=== PATIENT | male | born 1960 | race Caucasian/White ===

== ENCOUNTER 2016-07-30 13:36 | Emergency (ER) | payer MEDICAID, OTHER ==
[~2016-07-30] VITALS: Wt 98.0 kg
[~2016-07-30 13:36] MED LIST: ASPI-664 PO; CARV3.12 PO; ESOM40CA PO; FURO-110 PO; LISI10TA2 PO; NIT4 SL; SIMV20TA2 PO
--- NOTE | 2016-07-30 14:46 | EN ---
Date/Time of Note Date/Time of Note DATE: 07/30/16 TIME: 14:42 ER Progress Note This is a 56-year-old male, hypertension, pulmonary hypertension complaining of a rash and itchiness throughout the body for the past 4 days. Patient has been evaluated in RME and was found to have worsening pitting edema and shortness of breath therefore he will be sent to ER 1 for further evaluation and management. JOAQUIN QUINTANILLA PA-C July 30, 2016 14:46
--- NOTE | 2016-07-30 16:57 | ERA ---
ER Documentation Chief Complaint Date/Time DATE: 07/30/16 TIME: 16:56 Chief Complaint GEN RASH TO BILATERAL ARMS AND LEGS FOR THE PAST 4 DAYS. NO SOB NOTED. HPI The patient is a 56-year-old male, presenting to the ER because of bilateral upper extremity, anterior abdomen, bilateral extremity rash for the last 4 days. It is itchy, he denies fever, chills, neck pain, palpitation, diaphoresis , dyspnea, abdominal pain, vomiting with dysuria, diarrhea. He denies any orthopnea, proximal nocturnal dyspnea. He complains of chronic lower extremity edema, denies any calf pain. He smokes half a pack a day, denies drinking Past medical history: Dyslipidemia, hypertension, cardiomyopathy, pulmonary hypertension Past medical history: CABG ROS All systems reviewed and are negative except as per history of present illness. Medications Home Meds Active Scripts Triamcinolone Acetonide* (Kenalog*) 0.1%-15GM Cr, 1 APPLIC TOP BID for 7 Days, # 1 TUB Prov:ELIEZER HERNANDEZ MD 07/30/16 Famotidine* (Pepcid*) 20 Mg Tablet, 20 MG PO BID for 7 Days, TAB Prov:ELIEZER HERNANDEZ MD 07/30/16 Diphenhydramine Hcl* (Benadryl*) 50 Mg Cap, 50 MG PO Q6H Y for ITCHING/RASH, # 30 CAP Prov:ELIEZER HRENANDEZ MD 07/30/16 Reported Medications Omeprazole* (Omeprazole*) 20 Mg Capsule.dr, 20 MG PO DAILY, #30 CAP 07/30/16 Metoprolol Succinate* (Toprol XL*) 25 Mg Tab.sr.24h, 12.5 MG PO DAILY, #30 TAB 07/30/16 Aspirin* (Aspirin* (EC)) 81 Mg Tablet.dr, 81 MG PO DAILY, TAB 02/14/15 Furosemide* (Lasix*) 20 Mg Tablet, 20 MG PO DAILY, TAB 02/14/15 Lisinopril* (Lisinopril*) 10 Mg Tablet, 10 MG PO DAILY, TAB 02/14/15 Simvastatin (Simvastatin) 20 Mg Tablet, 20 MG PO DAILY 06/27/11 Discontinued Reported Medications Nitroglycerin* (Nitrostat*) 0.4 Mg Tab.subl, 0.4 MG SL Q5MIN Y for CHEST PAIN, BOTTLE 02/14/15 Esomeprazole Mag Trihydrate (Nexium) 40 Mg Capsule.dr, 40 MG PO DAILY, CAP 02/14/15 Carvedilol* (Coreg*) 3.125 Mg Tablet, 3.125 MG PO BID, TAB 02/14/15 Allergies Allergies: Coded Allergies: No Known Allergy (Unverified , 07/30/16) PMhx/Soc History of Surgery: Yes (CABG 2005) Anesthesia Reaction: No Hx Neurological Disorder: No Hx Respiratory Disorders: No Hx Cardiac Disorders: Yes (HTN, CHEST PAIN) Hx Psychiatric Problems: No Hx Miscellaneous Medical Probl: Yes (FORMER DRUG USER METAMPHETAMINE 1 YR AGO) Hx Alcohol Use: No Hx Substance Use: No Hx Tobacco Use: No Physical Exam Vitals Vital Signs Date Time Temp Pulse Resp B/P Pulse Ox O2 Delivery O2 Flow Rate FiO2 07/30/16 13:41 98.8 102 20 129/84 98 Physical Exam Const: No acute distress. Head: Atraumatic. Eyes: Normal Conjunctiva. ENT: Normal External Ears, Nose and Mouth. Neck: Full range of motion. No meningismus. Resp: Clear to auscultation bilaterally. Cardio: Regular rate and rhythm, no murmurs. Abd: Soft, non distended, normal bowel sounds, non tender. Skin: Minimal erythematous, maculopapular rash in upper and lower extremity and anterior abdomen. No vesicle, petechia, pustules Back: No midline or flank tenderness. Ext: Minimal chronic lower extremity edema, no calf tenderness Neur: Awake and alert. No focal deficit Psych: Normal Mood and Affect. Procedures/MDM MEDICAL MAKING DECISION: The patient is a 56-year-old male, presenting with nonspecific dermatitis. The differential diagnoses considered include but are not limited to allergic dermatitis, contact dermatitis, cellulitis, urticaria Departure Diagnosis: Primary Impression: Dermatitis Condition: Stable Patient Instructions: Dermatitis, Non-Specific, Hives Comments He was discharged with Kenalog cream, Benadryl, Pepcid I discussed the findings with the patient. I advised the patient to follow-up with the primary physician in about 1-2 days, sooner if needed and return if any concern. ELIEZER HERNANDEZ MD July 30, 2016 16:57
[2016-07-30] MEDS ORDERED: BEN50 PO (17:24)
[2016-07-30] MEDS ORDERED: FAMO-18 PO (17:24)
[2016-07-30] MEDS ORDERED: KENC1 TOP (17:25)
[2016-07-30] MEDS ORDERED: METO25TA7 PO (17:29)
[2016-07-30] MEDS ORDERED: OMEP20CA16 PO (17:29)
== END 2016-07-30 16:32 | disposition home or self-care (01) ==
LOC: E/R 13:36
DX: L30.9 Dermatitis, unspecified (principal); I10 Essential (primary) hypertension; Z79.82 Long term (current) use of aspirin; Z98.61 Coronary angioplasty status
CPT/HCPCS: 99283

== ENCOUNTER 2016-10-19 12:07 | Inpatient (IN) | payer OTHER ==
[~2016-10-19] VITALS: Ht 182.9 cm; Wt 118.2 kg
[~2016-10-19 12:07] MED LIST changes: +BEN50 PO; -CARV3.12 PO; -ESOM40CA PO; +FAMO-96 PO; +METO25TA7 PO; -NIT4 SL; +OMEP20CA16 PO; +TRIA15CR55 TOP
[2016-10-19] MEDS ORDERED: CEFEPIME 2GM/50 ML (PMX) 50 ML IVPB STA (12:21)
[2016-10-19] MEDS ORDERED: SODIUM CHLORIDE 0.9% 1L BAG IV* STA (12:21)
[2016-10-19] MEDS ORDERED: ACETAMINOPHEN 500 MG TAB PO STA (12:21)
[2016-10-19] MEDS ORDERED: ASPIRIN 325 MG TAB PO STA (12:21)
[2016-10-19] MEDS ORDERED: NITROGLYCERIN (SL) 0.4 MG TAB SL PRN (12:30)
[2016-10-19] MEDS ORDERED: VANCOMYCIN 1 GM (PMX) 250 ML IVPB ONE (12:30)
[2016-10-19] MEDS ORDERED: IBUPROFEN 800 MG TAB PO ONE (12:30)
--- NOTE | 2016-10-19 12:39 | ERA ---
ER Documentation Chief Complaint Date/Time DATE: 10/19/16 TIME: 12:33 Chief Complaint HPI This is a 56-year-old male with a known history of coronary artery bypass graft in 2016 performed at [facility] who presents to the emergency department complaining of a sudden onset of chest pain that occurred roughly 1 hour prior to arrival. The patient stated he felt fine when he awoke this morning but several hours after awakening he developed the chest pressure which he stated was localized to the mid substernal region radiating to the left arm but no radiation to the back neck or jaw. Indicates he took a nitroglycerin an hour and a half ago with no relief of his symptoms. He drove himself to the hospital and while en route to the hospital he stated he felt a tactile fever with shaking and chills and developed a bilateral pulsating headache. He states this is not the worst headache of his life and he has had a similar headache roughly 1 year ago. He denies any neck pain. He denies any recent hospitalizations and is not currently on antibiotics. He denies a productive or nonproductive cough. He denies any frequency urgency or dysuria. He denies any abdominal pain. He denies any recent travel. The patient did indicate he is also homeless and has been working in the heat and has been sleeping in his car with no air conditioning. The patient also indicates that he had utilized crystal meth and heroin several hours prior to arrival. ROS All systems reviewed and are negative except as per history of present illness. Medications Home Meds Active Scripts Triamcinolone Acetonide* (Kenalog*) 0.1%-15GM Cr, 1 APPLIC TOP BID for 7 Days, # 1 TUB Prov:ELIEZER HERNANDEZ MD 07/30/16 Diphenhydramine Hcl* (Benadryl*) 50 Mg Cap, 50 MG PO Q6H Y for ITCHING/RASH, # 30 CAP Prov:ELIEZER HERNANDEZ MD 07/30/16 Reported Medications Omeprazole* (Omeprazole*) 20 Mg Capsule., 20 MG PO DAILY, #30 CAP 07/30/16 Metoprolol Succinate* (Toprol XL*) 25 Mg Tab.sr.24h, 12.5 MG PO DAILY, #30 TAB 07/30/16 Aspirin* (Aspirin* (EC)) 81 Mg Tablet., 81 MG PO DAILY, TAB 02/14/15 Furosemide* (Lasix*) 20 Mg Tablet, 20 MG PO DAILY, TAB 02/14/15 Lisinopril* (Lisinopril*) 10 Mg Tablet, 10 MG PO DAILY, TAB 02/14/15 Simvastatin (Simvastatin) 20 Mg Tablet, 20 MG PO DAILY 06/27/11 Discontinued Scripts Famotidine* (Pepcid*) 20 Mg Tablet, 20 MG PO BID for 7 Days, TAB Prov:ELIEZER HERNANDEZ MD 07/30/16 Allergies Allergies: Coded Allergies: No Known Allergy (Unverified , 07/30/16) PMhx/Soc History of Surgery: Yes (CABG 2005) Anesthesia Reaction: No Hx Neurological Disorder: No Hx Respiratory Disorders: No Hx Cardiac Disorders: Yes (HTN, CHEST PAIN) Hx Psychiatric Problems: No Hx Miscellaneous Medical Probl: Yes (FORMER DRUG USER METAMPHETAMINE 1 YR AGO) Hx Alcohol Use: No Hx Substance Use: No Hx Tobacco Use: No Physical Exam Vitals Vital Signs Date Time Temp Pulse Resp B/P Pulse Ox O2 Delivery O2 Flow Rate FiO2 10/19/16 17:06 99.0 104 18 101/64 97 Room Air 10/19/16 14:24 99.7 10/19/16 13:41 102.6 10/19/16 13:20 131 25 132/78 95 Room Air 10/19/16 12:10 102.5 144 30 149/82 98 Physical Exam Constitutional:Well-developed. Well-nourished. HEENT:Normocephalic. Atraumatic.Pupils were equal round reactive to light. Dry mucous membranes.No tonsillar exudates. Funduscopy exam shows sharp optic disks and venous pulsations are present Neck: No nuchal rigidity. No lymphadenopathy. No posterior cervical spine tenderness or step-offs. Respiratory: Not using accessory muscles of respiration.Lungs were clear to auscultation bilaterally. No rhonchi. No rales. No wheezing. Cardiovascular: Regular rate regular rhythm.No murmurs. No rubs were appreciated.S1, S2 normal. Distal pulses are palpable 2+ bilaterally. GI: Abdomen was soft. Nontender. Non Distended. No pulsatile abdominal masses or bruits. No rebound. No guarding. Bowel sounds were present and normal. Muscle skeletal: Full range of motion of both the upper and lower extremities bilaterally.Normal muscle tone.No assymetrical calf tenderness or swelling. Skin: Skin warm to the touch. No petechia, no purpura. No lesions on the palms or the soles of the feet. No maculopapular rash. NEURO: Patient was alert, awake, orientated x3.No facial droop. Gait observed and normal with no ataxia.Speech had regular rate and rhythm. No focal neurological deficits. Result Diagram: 10/19/16 1240 10/19/16 1240 Results 24 hrs Laboratory Tests Test 10/19/16 12:40 10/19/16 12:50 10/19/16 14:55 White Blood Count 15.410^3/ul Red Blood Count 4.6910^6/ul Hemoglobin 13.8g/dl Hematocrit 39.8% Mean Corpuscular Volume 84.9fl Mean Corpuscular Hemoglobin 29.4pg Mean Corpuscular Hemoglobin Concent 34.7g/dl Red Cell Distribution Width 13.4% Platelet Count 83681^3/UL Mean Platelet Volume 12.0fl Neutrophils % 94.1% Lymphocytes % 2.1% Monocytes % 2.0% Eosinophils % 0.3% Basophils % 0.3% Nucleated Red Blood Cells % 0.0/100WBC Neutrophils # 14.510^3/ul Lymphocytes # 0.310^3/ul Monocytes # 0.310^3/ul Eosinophils # 0.110^3/ul Basophils # 0.010^3/ul Nucleated Red Blood Cells # 0.010^3/ul Prothrombin Time 12.5Sec Prothrombin Time Ratio 1.0 INR International Normalized Ratio 0.93 Activated Partial Thromboplast Time 27.2Sec Sodium Level 137mmol/L Potassium Level 4.1mmol/L Chloride Level 101mmol/L Carbon Dioxide Level 22mmol/L Anion Gap 18 Blood Urea Nitrogen 14mg/dl Creatinine 0.94mg/dl Glucose Level 173mg/dl Lactic Acid Level 1.7mmol/L 2.2mmol/L Calcium Level 9.4mg/dl Total Bilirubin 0.6mg/dl Direct Bilirubin 0.00mg/dl Indirect Bilirubin 0.6mg/dl Aspartate Amino Transf (AST/SGOT) 19IU/L Alanine Aminotransferase (ALT/SGPT) 32IU/L Alkaline Phosphatase 74IU/L Troponin I < 0.012ng/ml Total Protein 7.6g/dl Albumin 4.3g/dl Globulin 3.30g/dl Albumin/Globulin Ratio 1.30 Amylase Level 79U/L Lipase 56U/L Urine Color YELLOW Urine Clarity CLEAR Urine pH 8.0 Urine Specific [place] 1.017 Urine Ketones NEGATIVEmg/dL Urine Nitrite NEGATIVEmg/dL Urine Bilirubin NEGATIVEmg/dL Urine Urobilinogen NEGATIVEmg/dL Urine Leukocyte Esterase NEGATIVELeu/ul Urine Hemoglobin NEGATIVEmg/dL Urine Glucose 2+mg/dL Urine Total Protein NEGATIVEmg/dl Current Medications Medications (Trade) Dose Ordered Sig/Jose Route PRN Reason Start Time Stop Time Status Last Admin Dose Admin Sodium Chloride 2480 ml 2,480 ml BOLUS OVER 2 HOURS STAT IV* 10/19/16 12:21 10/19/16 12:25 DC 10/19/16 12:47 Cefepime HCl 50 ml @ 100 mls/hr ONCE STAT IVPB 10/19/16 12:21 10/19/16 12:50 DC 10/19/16 12:58 Vancomycin HCl (Vancocin) 250 ml @ 125 mls/hr ONCE ONCE IVPB 10/19/16 12:30 10/19/16 14:29 DC Acetaminophen (Tylenol Tab) 1,000 mg ONCE STAT PO 10/19/16 12:21 10/19/16 12:26 DC 10/19/16 12:39 Ibuprofen (Motrin) 800 mg ONCE ONCE PO 10/19/16 12:30 10/19/16 12:31 DC 10/19/16 12:39 Aspirin (Aspirin) 325 mg ONCE STAT PO 10/19/16 12:21 10/19/16 12:26 DC 10/19/16 12:57 Nitroglycerin (Nitroglycerin (Sl Tab) 0.4 Mg) 1 tab Q5M UP TO 3 DOSES PRN SL CHEST PAIN 10/19/16 12:30 Lidocaine 5 ml 5 ml ONCE ONCE SC 10/19/16 14:30 10/19/16 14:31 DC 10/19/16 16:00 Gentamicin Sulfate (Gentamicin) 100 ml @ 200 mls/hr ONCE ONCE IVPB 10/19/16 16:30 10/19/16 16:59 DC 10/19/16 17:06 Ondansetron HCl (Zofran Inj) 4 mg ER BRIDGE PRN IV NAUSEA AND/OR VOMITING 10/19/16 16:30 10/20/16 16:29 Acetaminophen (Tylenol Tab) 650 mg ER BRIDGE PRN PO MILD PAIN/FEVER 10/19/16 16:30 10/20/16 16:29 IV Flush (NS 10 ml) 10 ml PRN PRN IV FLUSH LINE 10/19/16 17:00 Procedures/MDM The patient presented to the emergency department with chest pain. My clinical evaluation and workup was to distinguish minor causes of chest pain from acute life threatening conditions such as myocardial infarction, pulmonary embolism, aortic dissection, esophageal rupture, cardiac tamponade. The patient was placed on a monitoring engineer and continuous pulse oximetry. The patient is a difficult stick and peripheral IV access is been attempted by nursing staff. The patient was febrile and received acetaminophen and Motrin. He was also given aspirin and nitroglycerin. 12 Lead EKG tracing ordered and reviewed by myself showed: Sinus tachycardia 144 bpm and no arrhythmia. LA interval normal. QRS duration normal. No ST segment elevation. Left axis deviation No ST segment depression. No changes consistent with acute ischemia. The patient also presented to the emergency department with an acute single headache that presented within hours of onset my differential diagnosis included but was not limited to meningitis, SAH, intracerebral hemorrhage, hypertensive encephalopathy, cranial artery dissection, cerebral venous sinus thrombosis, traumatic, acute sinusitis. The patient has no ocular symptoms to suggest temporal neuritis, acute narrow-angle glaucoma or pituitary apoplexy. The patient did not appear to have a toxic or metabolic etiology such as fever, hypoglycemia, high-altitude disease or carbon monoxide poisoning. This was not the patients worse headache of their life. The patient had a complete neurologic and fundoscopic exam performed by myself that was normal with no focal neurological deficits or retinal hemorrhage. The patient stated this headache was not severe or distinct from other headaches and the history with the physical exam findings did not likely suggest SAH. Therefore, I did not feel it was clinically necessary to perform a lumbar puncture and CSF analysis. The patient's temperature resolved with antipyretics. The patient's lactic acid initially was not elevated. Repeat lactic acid increased to 2.2. He was treated for sepsis given broad-spectrum antibiotics. I did feel the patient's lactic acid had increased given that the patient had very poor peripheral IV access and required a PICC line so there was a delay in the patient's IV fluids as his ultrasound-guided peripheral line had infiltrated in the left upper extremity. His compartments of the bilateral upper extremities were soft. The patient adamantly refused a central line to be placed by myself and therefore the PICC line nurse kindly agreed to place IV access. Patient's infectious symptoms have not stabilized and the patient is at risk of rapid decompensation. The patient will be admitted for careful hydration, antibiotic therapy, and infectious source control. Severe Sepsis Assessment: Infectious Source: Unknown End organ damage indicated by: Lactate > 2.0 mmol/L Severe Sepsis Managment: Blood Cultures X 2 before broad spectrum antibiotics initiated within 3 hours of recognition. 30 ml/kg NS bolus Completed Initial Lactate: normal Repeat Lactate 2.2 Chest radiograph performed by myself showed no infiltrates pneumothorax or pleural effusions. EKG showed no arrhythmia. The patient had no risk factors for rheumatic fever, atrial my myxoma, acute pericarditis. The patient's troponin was normal. However the patient will be admitted for serial 12-lead EKG tracings and cardiac set of enzymes. I could not rule out the possibility of endocarditis or septicemia. The patient was started with broad-spectrum antibiotics which included vancomycin and Zosyn and cultures are currently pending as the views were obtained prior to the antibiotics being given. The patient's antibiotic spectrum will be broadened with gentamicin as again I cannot rule out the possibility of endocarditis. The patient will be admitted to the hospitalist Dr. Rajan Departure Diagnosis: Primary Impression: Chest pain Qualified Code: R07.9 - Chest pain, unspecified type Additional Impression: Sepsis Qualified Code: A41.9 - Sepsis, due to unspecified organism Condition: Serious RHETTNASREEN TAVAREZA Oct 19, 2016 12:39
[2016-10-19 13:04] LABS: ABNORMAL IP MESSAGE 1; BASOPHILS % 0.3 % (0.0-2.0); EOSINOPHILS # 0.1 10^3/ul (0.0-0.5); EOSINOPHILS % 0.3 % (0.0-7.0); HEMATOCRIT 39.8 % (42.0-52.0); HEMOGLOBIN 13.8 g/dl (14.0-18.0); LYMPHOCYTES # 0.3 10^3/ul (0.8-2.9); LYMPHOCYTES % 2.1 % (15.0-51.0); MEAN CORPUSCULAR HEMOGLOBIN 29.4 pg (29.0-33.0); MEAN CORPUSCULAR HGB CONC 34.7 g/dl (32.0-37.0); MEAN CORPUSCULAR VOLUME 84.9 fl (82.0-101.0); MONOCYTE # 0.3 10^3/ul (0.3-0.9); NEUTROPHIL # 14.5 10^3/ul (1.6-7.5); NEUTROPHILS % 94.1 % (39.0-77.0); PLATELET COUNT 147 10^3/UL (140-415); POSITIVE DIFF @See below; RED BLOOD COUNT 4.69 10^6/ul (4.70-6.10); RED CELL DISTRIBUTION WIDTH 13.4 % (11.5-14.5); WHITE BLOOD COUNT 15.4 10^3/ul (4.8-10.8)
[2016-10-19 13:09] VITALS: Ht 182.9 cm; Wt 118.2 kg
[2016-10-19 13:12] LABS: ADD UMIC NO; UR ASCORBIC ACID NEGATIVE (NEGATIVE); UR BILIRUBIN (Dip) NEGATIVE (NEGATIVE); UR BLOOD (Dip) NEGATIVE (NEGATIVE); UR CLARITY CLEAR (CLEAR); UR COLOR YELLOW (YELLOW); UR GLUCOSE (Dip) 2+ mg/dL (NEGATIVE); UR KETONES (Dip) NEGATIVE (NEGATIVE); UR LEUKOCYTE ESTERASE (Dip) NEGATIVE Leu/ul (NEGATIVE); UR NITRITE (Dip) NEGATIVE (NEGATIVE); UR SPECIFIC GRAVITY (Dip) 1.017 (1.003-1.030); UR TOTAL PROTEIN (Dip) NEGATIVE (NEGATIVE); UR UROBILINOGEN (Dip) NEGATIVE (NEGATIVE)
[2016-10-19 13:18] LABS: INR 0.93; PROTIME 12.5 Sec (12.2-14.2)
[2016-10-19 13:19] LABS: PARTIAL THROMBOPLASTIN TIME 27.2 Sec (25.0-35.0)
[2016-10-19 13:23] LABS: ALANINE AMINOTRANSFERASE 32 IU/L (13-69); ALBUMIN 4.3 g/dl (3.3-4.9); ALKALINE PHOSPHATASE 74 IU/L (42-121); AMYLASE 79 U/L (11-123); ANION GAP 18 (8-16); ASPARTATE AMINO TRANSFERASE 19 IU/L (15-46); BILIRUBIN,INDIRECT 0.6 mg/dl (0-1.1); BILIRUBIN,TOTAL 0.6 mg/dl (0.2-1.3); BLOOD UREA NITROGEN 14 mg/dl (7-20); CALCIUM 9.4 mg/dl (8.4-10.2); CARBON DIOXIDE 22 mmol/L (21-31); CHLORIDE 101 mmol/L (97-110); CREATININE 0.94 mg/dl (0.61-1.24); GLUCOSE 173 mg/dl (70-220); POTASSIUM 4.1 mmol/L (3.5-5.1); SODIUM 137 mmol/L (135-144); TOTAL PROTEIN 7.6 g/dl (6.1-8.1)
--- NOTE | 2016-10-19 13:24 | RADRPT ---
PROCEDURE: CT Brain without contrast. CLINICAL INDICATION: Headache. TECHNIQUE: A CT of the brain without contrast was performed utilizing axial sections from the skul l base through the vertex. The patient was scanned without intravenous contrast enhancement. Sagitta l and coronal reformatted images were obtained using the data from the axial images. Total exam DLP is 720.23 mGy-cm. CTDIvol is 43.77 mGy. One or more of the following dose reduction techniques we re used: Automated exposure control, adjustment of the mA and/or kV according to patient size, use o f iterative reconstruction technique. COMPARISON: None available FINDINGS: There is normal tay-white matter differentiation. The ventricles and cisterns are normal. There is no intracranial hemorrhage or space-occupying lesion. There is no skull fracture or lytic lesion. IMPRESSION: 1. Normal noncontrast CT scan of the brain. 2. No intracranial hemorrhage. RPTAT: QQ .Srikanth Owen MD, MD Date Time Electronically viewed and signed by .Srikanth Owen MD, on 10/19/2016 13:24 .R/
--- NOTE | 2016-10-19 13:25 | RADRPT ---
PROCEDURE: XR Chest. CLINICAL INDICATION: Cough. Sepsis. TECHNIQUE: Single frontal view. COMPARISON: 03/14/2015. FINDINGS: The lungs are clear. The heart is enlarged. There are sternal wires. There is no pleural effusion. There is no pneumothorax. IMPRESSION: 1. Mild cardiomegaly. 2. Previous median sternotomy. 3. Clear lungs. 4. No change from 03/14/2015. RPTAT: QQ .Srikanth Owen MD, MD Date Time Electronically viewed and signed by .Srikanth Owen MD, MD on 10/19/2016 13:25 .R/
[2016-10-19 13:33] LABS: TROPONIN-I < 0.012 ng/ml (0.00-0.12)
[2016-10-19] MEDS ORDERED: LIDOCAINE 1% (MPF) 5 ML VIAL SC ONE (14:30)
--- NOTE | 2016-10-19 16:24 | RADRPT ---
PROCEDURE: XR Chest. CLINICAL INDICATION: PICC line placement TECHNIQUE: PA and lateral chest x-ray. COMPARISON: 10/19/2016 at 01:01 p.m. FINDINGS: Right-sided PICC line terminates in the right internal jugular vein. The lungs are clear. No pleural effusion identified. No evidence of pneumothorax. The heart size is large. Median sternotomy wires are unchanged. The cardiomediastinal silhouette i s unremarkable. The soft tissues are within normal limits. Bony structures are unremarkable. IMPRESSION: 1. Interval placement right-sided PICC line which terminates in the right neck, likely in the inter nal jugular vein. Repositioning is suggested. 2. Cardiomegaly. RPTAT: QQ .Justus Gtz MD, MD Date Time Electronically viewed and signed by .Justus Gtz MD, on 10/19/2016 16:24 .M/
--- NOTE | 2016-10-19 16:26 | RADRPT ---
PROCEDURE: Ultrasound guided PICC line placement CLINICAL INDICATION: PICC line placement COMPARISON: None available TECHNIQUE: Real-time high-resolution ultrasound imaging in transverse and longitudinal planes was p erformed in the upper arm to evaluate venous size and location for needle insertion during PICC line placement. Barnworker Groom images were submitted for interpretation. FINDINGS: Focused ultrasound imaging of the upper arm was performed for placement of PICC line. No radiologist was present for the procedure. No diagnosis was made from the images. IMPRESSION: 1. Focused ultrasound for placement of PICC line. RPTAT: QQ .Justus Gtz MD, Date Time Electronically viewed and signed by .Justus Gtz MD, on 10/19/2016 16:25 .M/
--- NOTE | 2016-10-19 16:28 | RADRPT ---
PROCEDURE: XR Chest. CLINICAL INDICATION: Line placement TECHNIQUE: PA and lateral chest x-ray. COMPARISON: 10/19/2016 at 1607 hours FINDINGS: Right-sided PICC line terminates in superior vena cava 4 cm above the right atrium. The lungs are clear. No pleural effusion identified. No evidence of pneumothorax. The heart size is large. Mediasternotomy wires are unchanged from previous exam. The cardiomediast inal silhouette is otherwise unremarkable. The soft tissues are within normal limits. Bony structures are unremarkable. IMPRESSION: 1. Interval repositioning right-sided PICC line which terminates in the superior vena cava 4 cm abo ve the right atrium. 2. Cardiomegaly. RPTAT: QQ .Justus Gtz MD, MD Date Time Electronically viewed and signed by .Justus Gtz MD, on 10/19/2016 16:27 .M/
[2016-10-19] MEDS ORDERED: ONDANSETRON 4 MG INJ IV PRN (16:30)
[2016-10-19] MEDS ORDERED: ACETAMINOPHEN 325 MG TAB PO PRN (16:30)
[2016-10-19] MEDS ORDERED: GENTAMICIN 120 MG/NS (PMX) 100 ML IVPB ONE (16:30)
[2016-10-19 17:06] VITALS: TEMP 99
[2016-10-19 18:15] VITALS: BP 100/55; PULSE 100; RESP 19
--- NOTE | 2016-10-19 18:21 | HP ---
Date/Time of Note Date/Time of Note DATE: 10/19/16 TIME: 18:04 Assessment/Plan VTE Prophylaxis VTE Prophylaxis Intervention: LMWH Lines/Catheters IV [facility]ter [facility] (from [facility]): PICC Line Central line still needed: No Assessment/Plan Chief Complaint/Hosp Course 56 yo male with h/o systolic CHF with EF 30%, reported prior history of unclear cardiac surgery to repair a "hole in his heart", DMII, obesity, PSA who presents with fever/hyperthermia and headache following ingestion of methamphetamines. Clinical picture highly suggestive of a toxidrome. Infectious etiology should also be considered, notably endocarditis. Meningitis not suspected given his exam without meningismus/photophobia and headache resolved. - Monitor for improvement as suspected toxidrome wears off - Will cover with abx for now and await BC results Chronic systolic CHF: - TTE - Will need to resume his CHF medication regiment ot which he has been nonadherent (BB, ALLIE, arslan) DMII: - Basal bolus insulin Discharge pending improvement in medical condition Problems: HPI/ROS Admit Date/Time Admit Date/Time Hx of Present Illness 56 yo male wtih h/o systolic CHF EF 30%, reported h/o "hole in my heart" repair in 2005, PSA (opiates, methamphatamines), DMII who presents with fever and headache. Patient was in [facility] until yesterday. Reports doing methamphetamines and opiates via inhalation all day yesterday. Developed headache and hyperthermia overnight preventing him from sleeping. He lives in his car. Given symptoms he came to ED here. Found to be markedly febrile. Says headache has abated now. Denies doing any IV drugs. Denies any preceding symptoms prior to yesterday. Denies any other toxic ingestions. PMH/Family/Social Past Medical History Medical History: congestive heart failure Past Surgical History "Hole in heart repair" Social History Alcohol Use: occasionally Smoking Status: Current every day smoker Drug Use: heroin, other (amphetamines) Exam/Review of Systems Vital Signs Vitals Vital Signs Date Time Temp Pulse Resp B/P Pulse Ox O2 Delivery O2 Flow Rate FiO2 10/19/16 17:06 99.0 104 18 101/64 97 Room Air Exam Exam Comfortable appearing, somnulent Marked plethoric appearance to face and chest, blanchable. Very warm to touch, nontender Heart rhythm is regular, there is a 2/6 systolic murmur, JVD is elevated Sternotomy scar Lungs are clear Abdomen is obese, soft, nt Ext warm, L leg with some edema > R Labs notable for mild leukocytosis, mild lactate elevation Head CT negative CXR with mild cardiomegaly Labs Result Diagram: 10/19/16 1240 10/19/16 1240 Medications Medications Current Medications IV Flush (NS 10 ml) 10 ml PRN PRN IV FLUSH LINE; Start 10/19/16 at 17:00 CHRISTINE DIEGO MD Oct 19, 2016 18:14
[2016-10-19 18:32] VITALS: PULSE 105
[2016-10-19 18:53] LABS: OPIATES Positive (NEGATIVE)
[2016-10-19 18:56] LABS: BARBITURATES Negative (NEGATIVE); BENZODIAZEPINES Negative (NEGATIVE); CANNABINOIDS Negative (NEGATIVE); COCAINE Negative (NEGATIVE)
[2016-10-19 19:46] VITALS: BP 117/56; RESP 18
[2016-10-19 20:13] VITALS: PULSE 96
[2016-10-19] MEDS: PIPER-TAZO 3.375 GM IV (PMX) 100 ML IVPB SCH (21:13)
[2016-10-19 23:57] VITALS: BP 121/57; RESP 18
[2016-10-20 00:17] VITALS: PULSE 83
[2016-10-20 03:47] VITALS: BP 121/61; RESP 18
[2016-10-20 04:09] VITALS: PULSE 92
[2016-10-20] MEDS: PIPER-TAZO 3.375 GM IV (PMX) 100 ML IVPB SCH (06:08)
[2016-10-20 08:00] VITALS: BP 99/59; PULSE 95; RESP 19
[2016-10-20 08:27] VITALS: PULSE 101
[2016-10-20 08:55] LABS: ABNORMAL IP MESSAGE 1; BASOPHILS % 0.3 % (0.0-2.0); EOSINOPHILS # 0.1 10^3/ul (0.0-0.5); EOSINOPHILS % 0.4 % (0.0-7.0); HEMOGLOBIN 12.9 g/dl (14.0-18.0); LYMPHOCYTES # 0.4 10^3/ul (0.8-2.9); MEAN CORPUSCULAR HEMOGLOBIN 29.3 pg (29.0-33.0); MEAN CORPUSCULAR HGB CONC 33.9 g/dl (32.0-37.0); MEAN CORPUSCULAR VOLUME 86.4 fl (82.0-101.0); MEAN PLATELET VOLUME 12.1 fl (7.4-10.4); MONOCYTE # 0.3 10^3/ul (0.3-0.9); MONOCYTES % 2.1 % (0.0-11.0); NEUTROPHIL # 12.6 10^3/ul (1.6-7.5); NEUTROPHILS % 93.2 % (39.0-77.0); PLATELET COUNT 116 10^3/UL (140-415); POSITIVE DIFF @See below; RED CELL DISTRIBUTION WIDTH 13.6 % (11.5-14.5); WHITE BLOOD COUNT 13.5 10^3/ul (4.8-10.8)
[2016-10-20] MEDS ORDERED: ENOXAPARIN 40 MG/0.4 ML SYG SC SCH (09:00)
[2016-10-20 09:14] LABS: ALBUMIN 3.2 g/dl (3.3-4.9); ALBUMIN/GLOBULIN RATIO 1.06; BILIRUBIN,INDIRECT 0.3 mg/dl (0-1.1); BILIRUBIN,TOTAL 0.3 mg/dl (0.2-1.3); CREATININE 0.86 mg/dl (0.61-1.24); POTASSIUM 3.9 mmol/L (3.5-5.1); TOTAL PROTEIN 6.2 g/dl (6.1-8.1)
[2016-10-20 12:26] VITALS: BP 94/63; PULSE 109; RESP 18
--- NOTE | 2016-10-20 13:42 | PDOCDIS ---
Discharge Instructions DIAGNOSIS Discharge Diagnosis Fever CONDITION Patient Condition: Fair HOME CARE INSTRUCTIONS: Diet Instructions: Reduced Sodium FOLLOW UP/APPOINTMENTS Follow-up Plan Return to the hospital immediately if you feel fever, shortness of breath, chest pain, or other concerning symptoms. It is quite possible you have an untreated, life-threatening infection that we have not yet diagnosed prior to your request to be discharged. You also need to see a software technical lead and take medications for your heart condition. It is extremely important that you refrain from drug use. CHRISTINE DIEGO MD Oct 20, 2016 13:42
--- NOTE | 2016-10-20 13:46 | DS ---
Date/Time of Note Date/Time of Note DATE: 10/20/16 TIME: 13:43 Discharge Summary Admission/Discharge Info Admit Date/Time Oct 19, 2016 at 16:06 Discharge Date/Time Oct 20, 2016 at 13:18 Discharge Diagnosis Fever Patient Condition: Fair Hx of Present Illness 56 yo male wt h/o systolic CHF EF 30%, reported h/o "hole in my heart" repair in 2005, PSA (opiates, methamphatamines), DMII who presents with fever and headache. Patient was in [facility] until yesterday. Reports doing methamphetamines and opiates via inhalation all day yesterday. Developed headache and hyperthermia overnight preventing him from sleeping. He lives in his car. Given symptoms he came to ED here. Found to be markedly febrile. Says headache has abated now. Denies doing any IV drugs. Denies any preceding symptoms prior to yesterday. Denies any other toxic ingestions. Hospital Course 56 yo male with h/o systolic CHF with EF 30%, reported prior history of unclear cardiac surgery to repair a "hole in his heart", DMII, obesity, PSA who presents with fever/hyperthermia and headache following ingestion of methamphetamines. Clinical picture highly suggestive of a toxidrome. Infectious etiology should also be considered, notably endocarditis. Meningitis not suspected given his exam without meningismus/photophobia and headache resolved. On the day following admission, the patient's symptoms had resolved. He was no longer febrile, had no chest pain, no shortenss of breath or headache. He requested to be discharged from the hospital. I discussed with the patient that I recommended he remain inpatient to continue to receive antibiotics until we can ensure his presentation was not because of infection, particularly endocarditis. Despite my explanation, the patient still requested to be discharged. He clearly understands the risk of doing so, including disability and , and accepts these risks. The patient was encouraged to resume care wt his child adolescent psychiatrist and to return to the hosptial immediately if he develops any fevers or other concernign symptoms. Home Meds Active Scripts Triamcinolone Acetonide* (Kenalog*) 0.1%-15GM Cr, 1 APPLIC TOP BID for 7 Days, # 1 TUB Prov:ELIEZER HERNANDEZ MD 07/30/16 Diphenhydramine Hcl* (Benadryl*) 50 Mg Cap, 50 MG PO Q6H Y for ITCHING/RASH, # 30 CAP Prov:ELIEZER HERNANDEZ MD 07/30/16 Reported Medications Omeprazole* (Omeprazole*) 20 Mg Capsule.dr, 20 MG PO DAILY, #30 CAP 07/30/16 Metoprolol Succinate* (Toprol XL*) 25 Mg Tab.sr.24h, 12.5 MG PO DAILY, #30 TAB 07/30/16 Aspirin* (Aspirin* (EC)) 81 Mg Tablet.dr, 81 MG PO DAILY, TAB 02/14/15 Furosemide* (Lasix*) 20 Mg Tablet, 20 MG PO DAILY, TAB 02/14/15 Lisinopril* (Lisinopril*) 10 Mg Tablet, 10 MG PO DAILY, TAB 02/14/15 Simvastatin (Simvastatin) 20 Mg Tablet, 20 MG PO DAILY 06/27/11 Discontinued Scripts Famotidine* (Pepcid*) 20 Mg Tablet, 20 MG PO BID for 7 Days, TAB Prov:ELIEZER HERNANDEZ MD 07/30/16 Primary Care Provider Kt [facility] Time spent on discharge: > 30 minutes Pending Labs Laboratory Tests Test 10/19/16 14:55 10/19/16 17:40 10/19/16 20:22 10/20/16 02:36 Lactic Acid Level 2.2mmol/L (0.5-2.0) 1.3mmol/L (0.5-2.0) Bedside Glucose 177mg/dL (70-220) 137mg/dL (70-220) Test 10/20/16 07:58 White Blood Count 13.510^3/ul (4.8-10.8) Red Blood Count 4.4010^6/ul (4.70-6.10) Hemoglobin 12.9g/dl (14.0-18.0) Hematocrit 38.0% (42.0-52.0) Mean Corpuscular Volume 86.4fl (82.0-101.0) Mean Corpuscular Hemoglobin 29.3pg (29.0-33.0) Mean Corpuscular Hemoglobin Concent 33.9g/dl (32.0-37.0) Red Cell Distribution Width 13.6% (11.5-14.5) Platelet Count 54032^3/UL (140-415) Mean Platelet Volume 12.1fl (7.4-10.4) Neutrophils % 93.2% (39.0-77.0) Lymphocytes % 3.0% (15.0-51.0) Monocytes % 2.1% (0.0-11.0) Eosinophils % 0.4% (0.0-7.0) Basophils % 0.3% (0.0-2.0) Nucleated Red Blood Cells % 0.0/100WBC (0.0-0.0) Neutrophils # 12.610^3/ul (1.6-7.5) Lymphocytes # 0.410^3/ul (0.8-2.9) Monocytes # 0.310^3/ul (0.3-0.9) Eosinophils # 0.110^3/ul (0.0-0.5) Basophils # 0.010^3/ul (0.0-0.1) Nucleated Red Blood Cells # 0.010^3/ul (0.0-0.0) Sodium Level 139mmol/L (135-144) Potassium Level 3.9mmol/L (3.5-5.1) Chloride Level 103mmol/L (97-110) Carbon Dioxide Level 27mmol/L (21-31) Anion Gap 13 (8-16) Blood Urea Nitrogen 17mg/dl (7-20) Creatinine 0.86mg/dl (0.61-1.24) Glucose Level 149mg/dl (70-220) Calcium Level 9.0mg/dl (8.4-10.2) Total Bilirubin 0.3mg/dl (0.2-1.3) Direct Bilirubin 0.00mg/dl (0.00-0.20) Indirect Bilirubin 0.3mg/dl (0-1.1) Aspartate Amino Transf (AST/SGOT) 21IU/L (15-46) Alanine Aminotransferase (ALT/SGPT) 26IU/L (13-69) Alkaline Phosphatase 55IU/L (42-121) Total Protein 6.2g/dl (6.1-8.1) Albumin 3.2g/dl (3.3-4.9) Globulin 3.00g/dl (1.3-3.2) Albumin/Globulin Ratio 1.06 CHRISTINE DIEGO MD Oct 20, 2016 13:46
--- NOTE | 2016-10-20 16:19 | RADRPT ---
Echocardiogram Report Patient Name: ALLISON IRVIN Gender: Male Date: 1960 Study Date: 20-Oct-2016 Collar Fuser: Liane RUST Location: 5552 Ref. Physician: CHRISTINE DIEGO Quality: Adequate Procedures: Transthoracic echocardiogram with complete 2D, M-Mode, and doppler examination. Indications: H/o cardiac surgery (unclear details) , here with FUO. Has murmur. Evaluate for endocarditis. 2D/M Mode Doppler Measurement Value Normal Ranges Measurement Value Normal Ranges LVIDd 2D 6.1 3.5 - 5.6 cm AV Peak Bal 1.4 m/sec LVIDs 2D 4.7 2.1 - 4.1 cm AV Peak PG 7.0 mmHg FS 2D 23.5 % LVOT Peak Bal 1.0 m/sec LVPWd 2D 1.3 0.6 - 1.1 cm LVOT Peak PG 4.0 mmHg IVSd 2D 1.3 0.6 - 1.1 cm MV E Peak Bal 1.1 m/sec IVS/LVPW 2D 1.0 TR Peak Bal 3.7 m/sec AoR Diam 2D 3.4 2.0 - 3.7 cm TR Peak PG 54.0 mmHg LA/Ao 2D 1 0 - 1 RVSP 69.0 mmHg EDV 2D 226.0 cm3 ESV 2D 101.0 cm3 LA Dimen 2D 4.5 2.3 - 4.0 cm Findings Left Ventricle: Mild concentric left ventricular hypertrophy. Mild enlargement of left ventricle cavity. Severe left ventricular systolic dysfunction. Ejection fraction is visually estimated at 20 %. Abnormal Diastolic Function. Right Ventricle: Normal right ventricular systolic function. Not well visualized. Mild enlargement of right ventricle. Left Atrium: There is mild enlargement of left atrium. Right Atrium: There is moderate enlargement of right atrium. Mitral Valve: Mitral valve leaflets appear mildly thickened. Mild mitral annular calcification. Mild mitral valve regurgitation. Aortic Valve: No hemodynamically significant aortic stenosis by doppler. Aortic cusps appear mildly calcified. Trace aortic valve regurgitation. Tricuspid Valve: Estimated peak PA systolic pressure 69 mmHg. Tricuspid valve appears mildly thickened. There is moderate tricuspid regurgitation. Pericardium: Normal pericardium with no significant pericardial effusion. Aorta: Normal aortic root. IVC: Dilated IVC without respiratory collapse consistent with elevated right atrial pressure. Conclusions 1.Mild concentric left ventricular hypertrophy. Mild enlargement of left ventricle cavity. Severe left ventricular systolic dysfunction. Ejection fraction is visually estimated at 20 %. Abnormal Diastolic Function. 2.Normal right ventricular systolic function. Not well visualized. Mild enlargement of right ventricle. 3.There is mild enlargement of left atrium. 4.There is moderate enlargement of right atrium. 5.Mild mitral valve regurgitation. 6.No hemodynamically significant aortic stenosis by doppler. Trace aortic valve regurgitation. 7.Estimated peak PA systolic pressure 69 mmHg. There is moderate tricuspid regurgitation. 8.Normal pericardium with no significant pericardial effusion. Electronically Signed By: Marco Allen 20-Oct-2016 16:19:23 -0700 Patient Name: ALLISON IRVIN Study Date: 20-Oct-2016 [id number]
== END 2016-10-20 13:18 | disposition left against medical advice (07) | DRG 918 ==
LOC: E/R 12:07 → MS4 16:06
PROVIDERS: ADMIT Internal Medicine; ATTEND Internal Medicine
DX: T43.621A Poisoning by amphetamines, accidental (unintentional), initial encounter (principal); E87.0 Hyperosmolality and hypernatremia; I50.22 Chronic systolic (congestive) heart failure; I25.10 Atherosclerotic heart disease of native coronary artery without angina pectoris; E11.9 Type 2 diabetes mellitus without complications; R50.9 Fever, unspecified; R51 Headache; Z53.21 Procedure and treatment not carried out due to patient leaving prior to being seen by health care provider; Y92.9 Unspecified place or not applicable; Z59.0 Homelessness; Z95.1 Presence of aortocoronary bypass graft
CPT/HCPCS: 36569; 70450; 71010; 76937; 80053; 80307; 81003; 82150; 82962; 83605; 83690; 84484; 85025; 85610; 85730; 87040; 87086; 93005; 93306; 96372; 96374; 96375; J0692; J1580; J1650; J2543; J7030

== ENCOUNTER 2016-10-31 15:25 | Inpatient (IN) | END 2016-11-01 14:12 | disposition home or self-care (01) | DRG 603 | DX: L03.116 Cellulitis of left lower limb (principal); I10 Essential (primary) hypertension; E11.9 Type 2 diabetes mellitus without complications; I25.10 Atherosclerotic heart disease of native coronary artery without angina pectoris; Z79.82 Long term (current) use of aspirin ==

== ENCOUNTER 2016-12-11 19:47 | Inpatient (IN) | payer OTHER ==
[~2016-12-11] VITALS: Ht 177.8 cm; Wt 102.5 kg
[~2016-12-11 19:47] MED LIST changes: -ASPI-664 PO; -BEN50 PO; +CARV3.1260 PO; +CLIN-73 PO; -FAMO-96 PO; -FURO-110 PO; +LISI-313 PO; -LISI10TA2 PO; -METO25TA7 PO; -OMEP20CA16 PO; -SIMV20TA2 PO; -TRIA15CR55 TOP
--- NOTE | 2016-12-11 23:34 | RADRPT ---
PROCEDURE: Portable chest x-ray. CLINICAL INDICATION: 56 years of age, male. chest pain. TECHNIQUE: Portable AP view of the chest. COMPARISON: October 31, 2016 FINDINGS: Sternal wires from previous cardiac surgery. Superior sternal wires are fractured as before. Diffuse enlargement of cardiopericardial silhouette is similar or increase compared to prior exam. Mediastinal contours are otherwise stable. Mild bibasilar lung opacity likely represents atelectasis, although aspiration or pneumonia could ap pear similar. Pulmonary vessels are mildly prominent that may be due to chronic pulmonary venous con gestion without interstitial edema. Negative for pleural effusion or pneumothorax. 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 IMPRESSION: Enlarged cardiopericardial silhouette is similar or increased since prior exam. Suspected chronic pulmonary venous congestion without interstitial pulmonary edema. Bibasilar lung opacities likely represent atelectasis although aspiration or pneumonia cannot be exc luded. RPTAT: HCTS Physician Hermila Date Time Electronically viewed and signed by Physician Hermila on 12/11/2016 23:34 /
[2016-12-12] VITALS (10 sets, daily range): BP systolic 109–126; BP diastolic 72–79; PULSE 88–101; RESP 15–20; Ht 177.8 cm; Wt 102.5 kg
--- NOTE | 2016-12-12 00:56 | EN ---
Date/Time of Note Date/Time of Note DATE: 12/12/16 TIME: 00:54 ER Progress Note Ultrasound-guided IV insertion note: Patient requiring intravenous line for laboratories and treatment but staff unable to obtain axis. Area was cleaned with alcohol wipe and ultrasound guidance was used with an extended 18-gauge angiocatheter was easily inserted into the basilic vein under ultrasound guidance. Good blood flow. IV flushed well. Laboratories obtained from same site. Patient tolerated well with no complications. Images saved in chart. KANDI LOVE DO Dec 12, 2016 00:56
[2016-12-12 01:34] LABS: BASOPHIL # 0.1 10^3/ul (0.0-0.1); BASOPHILS % 0.8 % (0.0-2.0); EOSINOPHILS # 0.3 10^3/ul (0.0-0.5); EOSINOPHILS % 4.7 % (0.0-7.0); HEMATOCRIT 37.7 % (42.0-52.0); HEMOGLOBIN 12.3 g/dl (14.0-18.0); LYMPHOCYTES # 1.3 10^3/ul (0.8-2.9); LYMPHOCYTES % 20.8 % (15.0-51.0); MEAN CORPUSCULAR HEMOGLOBIN 28.1 pg (29.0-33.0); MEAN CORPUSCULAR HGB CONC 32.6 g/dl (32.0-37.0); MEAN CORPUSCULAR VOLUME 86.3 fl (82.0-101.0); MONOCYTE # 0.5 10^3/ul (0.3-0.9); MONOCYTES % 7.4 % (0.0-11.0); NEUTROPHIL # 4.2 10^3/ul (1.6-7.5); PLATELET COUNT 180 10^3/UL (140-415); RED BLOOD COUNT 4.37 10^6/ul (4.70-6.10); RED CELL DISTRIBUTION WIDTH 14.9 % (11.5-14.5); WHITE BLOOD COUNT 6.4 10^3/ul (4.8-10.8)
[2016-12-12 02:05] LABS: ALANINE AMINOTRANSFERASE 29 IU/L (13-69); ALBUMIN 3.4 g/dl (3.3-4.9); ALBUMIN/GLOBULIN RATIO 0.94; ALKALINE PHOSPHATASE 90 IU/L (42-121); ANION GAP 10 (8-16); ASPARTATE AMINO TRANSFERASE 18 IU/L (15-46); BILIRUBIN,INDIRECT 0.3 mg/dl (0-1.1); BILIRUBIN,TOTAL 0.3 mg/dl (0.2-1.3); BLOOD UREA NITROGEN 17 mg/dl (7-20); CARBON DIOXIDE 27 mmol/L (21-31); CHLORIDE 106 mmol/L (97-110); CREATININE 0.98 mg/dl (0.61-1.24); GLUCOSE 112 mg/dl (70-220); POTASSIUM 4.1 mmol/L (3.5-5.1); SODIUM 139 mmol/L (135-144)
[2016-12-12 02:14] LABS: B-TYPE NATRIURETIC PEPTIDE 3340 PG/ML (0-125); TROPONIN-I < 0.012 ng/ml (0.00-0.12)
[2016-12-12] MEDS ORDERED: FUROSEMIDE 40 MG INJ IV ONE (02:30)
--- NOTE | 2016-12-12 02:31 | ERA ---
ER Documentation Chief Complaint Date/Time DATE: 12/12/16 TIME: 02:27 Chief Complaint sob, cough, cp radiates to left shoulder and left arm numbeness x 2 days HPI This a 56-year-old male who is complaining of dyspnea on exertion and orthopnea progressively getting worse over the past 3 weeks. He also has progressive worsening of his lower extremity edema. He says his lower extremity edema is chronic but is getting worse as well. Patient has had similar symptoms in the past. Denies any chest pain cough fever nausea vomiting diarrhea. ROS All systems reviewed and are negative except as per history of present illness. Medications Home Meds Active Scripts Clindamycin Hcl* (Clindamycin Hcl*) 300 Mg Capsule, 300 MG PO Q6 for 7 Days, # 28 CAP Prov:CHRISTINE DIEGO MD 11/01/16 Lisinopril* (Lisinopril*) 5 Mg Tablet, 5 MG PO DAILY for 90 Days, #90 TAB Prov:CHRISTINE DIEGO MD 11/01/16 Carvedilol* (Carvedilol*) 3.125 Mg Tablet, 3.125 MG PO BID for 90 Days, #90 TAB Prov:CHRISTINE DIEGO MD 11/01/16 Allergies Allergies: Coded Allergies: No Known Allergy (Unverified , 10/31/16) PMhx/Soc Medical and Surgical Hx: pt denies Medical Hx, pt denies Surgical Hx History of Surgery: Yes (open heart sx) Anesthesia Reaction: No Hx Neurological Disorder: No Hx Respiratory Disorders: Yes (pulmonary hypertension) Hx Cardiac Disorders: Yes (CAD, cardiomyopathy, hypertension) Hx Psychiatric Problems: Yes Hx Miscellaneous Medical Probl: Yes (drug abuse, smoker) Hx Alcohol Use: Yes Hx Substance Use: Yes (amphetamines) Hx Tobacco Use: Yes Smoking Status: Current every day smoker FmHx Family History: No coronary disease Physical Exam Vitals Vital Signs Date Time Temp Pulse Resp B/P Pulse Ox O2 Delivery O2 Flow Rate FiO2 12/11/16 19:53 98.6 109 20 128/81 98 Physical Exam Const: Well-developed, well-nourished Head: Atraumatic, normocephalic Eyes: Normal Conjunctiva, PERRLA, EOMI, normal sclera, no nystagmus ENT: Normal External Ears, Nose and Mouth, moist mucus membranes. Neck: Full range of motion. No meningismus, no lymphadenopathy. Resp: No increased work of breathing, basilar cardio: Regular rate and rhythm, no murmurs, S1 S2 present Abd: Soft, non tender x 4, non distended. Normal bowel sounds, no guarding or rebound, no pulsitile abdominal masses or bruits Skin: No petechiae or rashes, no ecchymosis , no maculopapular rash Back: No midline or flank tenderness Ext: No cyanosis, +3 edema, FROM x 4, normal inspection, neurovascularly intact x 4 Neur: Awake and alert, STR 5/5 x 4, sensation intact x 4, no focal findings, cerebellum intact Psych: Normal Mood and Affect Result Diagram: 12/12/165812/12/1658 Results 24 hrs Laboratory Tests Test 12/12/16 00:59 White Blood Count 6.410^3/ul Red Blood Count 4.3710^6/ul Hemoglobin 12.3g/dl Hematocrit 37.7% Mean Corpuscular Volume 86.3fl Mean Corpuscular Hemoglobin 28.1pg Mean Corpuscular Hemoglobin Concent 32.6g/dl Red Cell Distribution Width 14.9% Platelet Count 08041^3/UL Mean Platelet Volume 12.0fl Neutrophils % 66.0% Lymphocytes % 20.8% Monocytes % 7.4% Eosinophils % 4.7% Basophils % 0.8% Nucleated Red Blood Cells % 0.0/100WBC Neutrophils # 4.210^3/ul Lymphocytes # 1.310^3/ul Monocytes # 0.510^3/ul Eosinophils # 0.310^3/ul Basophils # 0.110^3/ul Nucleated Red Blood Cells # 0.010^3/ul Sodium Level 139mmol/L Potassium Level 4.1mmol/L Chloride Level 106mmol/L Carbon Dioxide Level 27mmol/L Anion Gap 10 Blood Urea Nitrogen 17mg/dl Creatinine 0.98mg/dl Glucose Level 112mg/dl Calcium Level 10.0mg/dl Total Bilirubin 0.3mg/dl Direct Bilirubin 0.00mg/dl Indirect Bilirubin 0.3mg/dl Aspartate Amino Transf (AST/SGOT) 18IU/L Alanine Aminotransferase (ALT/SGPT) 29IU/L Alkaline Phosphatase 90IU/L Troponin I < 0.012ng/ml B-Type Natriuretic Peptide 3340PG/ML Total Protein 7.0g/dl Albumin 3.4g/dl Globulin 3.60g/dl Albumin/Globulin Ratio 0.94 Procedures/MDM PROCEDURE: Portable chest x-ray. CLINICAL INDICATION: 56 years of age, male. chest pain. TECHNIQUE: Portable AP view of the chest. COMPARISON: October 31, 2016 FINDINGS: Sternal wires from previous cardiac surgery. Superior sternal wires are fractured as before. Diffuse enlargement of cardiopericardial silhouette is similar or increase compared to prior exam. Mediastinal contours are otherwise stable. Mild bibasilar lung opacity likely represents atelectasis, although aspiration or pneumonia could appear similar. Pulmonary vessels are mildly prominent that may be due to chronic pulmonary venous congestion without interstitial edema. Negative for pleural effusion or pneumothorax. 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 IMPRESSION: Enlarged cardiopericardial silhouette is similar or increased since prior exam. Suspected chronic pulmonary venous congestion without interstitial pulmonary edema. Bibasilar lung opacities likely represent atelectasis although aspiration or pneumonia cannot be excluded. RPTAT: HCTS Physician Hermila Date Time Electronically viewed and signed by Physician Hermila on 12/11/2016 23: 34 CS/ CC: WOJCIECH TRAMMELL DO EKG: Rate/Rhythm: Sinus tachycardia incomplete right bundle branch QRS, ST, QT: NORMAL NC, QRS, QT] Impression: [abNORMAL NORMAL EKG Patient is having a CHF exacerbation we will admit for diuresis will administer dose of Lasix here Departure Diagnosis: Primary Impression: Congestive heart failure Qualified Code: I50.9 - Congestive heart failure, unspecified congestive heart failure chronicity, unspecified congestive heart failure type Condition: Stable WOJCIECH TRAMMELL DO Dec 12, 2016 02:30
[2016-12-12] MEDS ORDERED: ACETAMINOPHEN 325 MG TAB PO PRN ×2 (03:00→03:30)
[2016-12-12] MEDS ORDERED: ONDANSETRON 4 MG INJ IV PRN ×2 (03:00→03:30)
[2016-12-12] MEDS: FAMOTIDINE 20 MG TAB PO SCH ×3 (03:30→22:31)
[2016-12-12] MEDS ORDERED: NACL 0.9% 3 ML SYG IV SCH (03:30)
[2016-12-12 04:43] LABS: BARBITURATES Negative (NEGATIVE); BENZODIAZEPINES Negative (NEGATIVE); CANNABINOIDS Negative (NEGATIVE); COCAINE Negative (NEGATIVE); OPIATES Negative (NEGATIVE)
[2016-12-12] MEDS: FUROSEMIDE 40 MG INJ IV SCH ×2 (05:43→18:15)
--- NOTE | 2016-12-12 10:21 | HP ---
Date/Time of Note Date/Time of Note DATE: 12/12/16 TIME: 10:16 Assessment/Plan VTE Prophylaxis VTE Prophylaxis Intervention: SCD's Lines/Catheters IV Catheter Type (from [facility]): Saline Lock Assessment/Plan Chief Complaint/Hosp Course This is a 56-year-old male being admitted to the telemetry floor for: #1 Acute CHF exacerbation: Patient reports noncompliance of medications patient is homeless as well. BNP is 2000. Echocardiogram in September 2016 showed an EF of 20%. Will put patient on Lasix IV twice daily. Will consult cardiology. Will continue ALLIE and beta-gustavo. Patient does report poor compliance medication as he is homeless. will get social work consult to help with assistance for medications if possible. #2 Hypertension: Continue lisinopril #3 diabetes mellitus: Patient states that he was on medication before but he said that his diabetes went away. Will check a hemoglobin A1c, And urine microalbumin. #4 amphetamine use: urine drug screen was positive for amphetamines. At the current time will provide as needed Ativan for agitation/withdrawal symptoms. Patient will need social work consult for rehab. #5 DVT GI prophylaxis: SCDs, acid gustavo Further treatment strategy will be implemented as per the clinical course Problems: HPI/ROS Admit Date/Time Admit Date/Time Dec 12, 2016 at 02:32 Hx of Present Illness Chief complaint: Shortness of breath and orthopnea This a 56-year-old male who is complaining of dyspnea on exertion and orthopnea progressively getting worse over the past 3 weeks. He also has progressive worsening of his lower extremity edema. He says his lower extremity edema is chronic but is getting worse as well. Patient has had similar symptoms in the past. Denies any chest pain cough fever nausea vomiting diarrhea. Patient denies any recent drug use. However urine drug screen does show positive for amphetamines. Of note patient is homeless and he reports that he is noncompliant with his medications as he is not able to afford them. Allergies: NKDA Medications: See DELFIN DIAZ Const: As per HPI Eyes : No pain discharge or redness or change in visual acuity ENT: No pain, sore throat, congestion, congestion, dysphagia or discharge Respiratory: As per HPI Cardiovascular: No chest pain, palpitation, PND, or edema GI : no change in appetite, abdominal pain, nausea, vomiting, diarrhea, constipation, or change in the color his stool Genitourinary: No dysuria, hematuria, flank pain , discharge or CVA tenderness Musculoskeletal: No joint pain, back pain, neck pain, restricted range of motion in neck or joints Skin: No rash, bruising or hives Neuro: No headache, dizziness, syncope, seizure, focal weakness Endocrine: No polyuria, polydipsia, temperature intolerance Psych: No hallucination, depression, anxiety or suicidal ideation PMH/Family/Social Past Medical History CHF with most recent echocardiogram in September 2016 showing ejection fraction of 20 %, and pulmonary pressures of 69 mmHg, hypertension, diabetes mellitus, history of polysubstance abuse Past Surgical History CABG Past Surgical Hx: other Family History Significant Family History: no pertinent family hx Social History Patient denies any recent drug use however patient's urine drug is positive for amphetamines Smoking Status: Current every day smoker Exam/Review of Systems Vital Signs Vitals Vital Signs Date Time Temp Pulse Resp B/P Pulse Ox O2 Delivery O2 Flow Rate FiO2 12/12/16 08:24 98.2 99 18 126/73 98 Room Air Intake and Output 12/11/16 12/11/16 12/12/16 15:00 23:00 07:00 Output Total 2600 ml Balance -2600 ml Exam Exam General: Patient is lying in bed in no acute distress HEENT: Atraumatic, normocephalic. The pupils are equal, round and reactive. Extraocular motor are intact Neck: Supple with full range of motion. No rigidity or meningismus Chest: Nontender Lungs: Bilateral expiratory wheezing, crackles diffusely Heart: Normal S1-S2, Regular rhythm and rate. Abdomen: Soft , nontender, nondistended , bowel sounds are present. No guarding no rebound tenderness , No masses or organomegaly. No costovertebral temporal angle mass Extremities: Normal to inspection, no edema no cyanosis Neurologic: Normal mental status, speech normal, cranial nerves II through XII are intact, motor and sensory are intact, no focal weakness Additional Comments PROCEDURE: Portable chest x-ray. CLINICAL INDICATION: 56 years of age, male. chest pain. TECHNIQUE: Portable AP view of the chest. COMPARISON: October 31, 2016 FINDINGS: Sternal wires from previous cardiac surgery. Superior sternal wires are fractured as before. Diffuse enlargement of cardiopericardial silhouette is similar or increase compared to prior exam. Mediastinal contours are otherwise stable. Mild bibasilar lung opacity likely represents atelectasis, although aspiration or pneumonia could appear similar. Pulmonary vessels are mildly prominent that may be due to chronic pulmonary venous congestion without interstitial edema. Negative for pleural effusion or pneumothorax. 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 IMPRESSION: Enlarged cardiopericardial silhouette is similar or increased since prior exam. Suspected chronic pulmonary venous congestion without interstitial pulmonary edema. Bibasilar lung opacities likely represent atelectasis although aspiration or pneumonia cannot be excluded. RPTAT: HCTS Physician Hermila Date Time Electronically viewed and signed by Physician Hermila on 12/11/2016 23: 34 CS/ CC: WOJCIECH TRAMMELL DO EKG: Rate/Rhythm: Sinus tachycardia incomplete right bundle branch QRS, ST, QT: NORMAL DE, QRS, QT] As per ED physician documentation Labs Result Diagram: 12/12/165812/12/1658 Medications Medications Current Medications Ondansetron HCl (Zofran Inj) 4 mg Q6H PRN IV NAUSEA AND/OR VOMITING; Start at 03:30 Aspirin (Aspirin) 81 mg DAILY PO ; Start 12/12/16 at 09:00 Acetaminophen (Tylenol Tab) 650 mg Q6H PRN PO PAIN LEVEL 1-3 OR FEVER; Start at 03:30 Famotidine (Pepcid) 20 mg Q12 PO ; Start 12/12/16 at 03:30 Lisinopril (Zestril) 5 mg DAILY PO ; Start 12/12/16 at 09:00 BEVERLY TORRES Dec 12, 2016 10:21
[2016-12-12] MEDS ORDERED: LORAZEPAM 2 MG INJ IV PRN (10:30)
[2016-12-12] MEDS: ASPIRIN 81 MG TAB PO SCH (10:59)
[2016-12-12] MEDS: LISINOPRIL 5 MG TAB PO SCH (11:00)
[2016-12-12] MEDS ORDERED: NITROGLYCERIN (SL) 0.4 MG TAB SL PRN (18:30)
[2016-12-12 22:01] LABS: BASOPHIL # 0.1 10^3/ul (0.0-0.1); EOSINOPHILS # 0.4 10^3/ul (0.0-0.5); EOSINOPHILS % 5.1 % (0.0-7.0); HEMATOCRIT 41.8 % (42.0-52.0); HEMOGLOBIN 13.6 g/dl (14.0-18.0); LYMPHOCYTES # 1.4 10^3/ul (0.8-2.9); LYMPHOCYTES % 17.3 % (15.0-51.0); MEAN CORPUSCULAR HEMOGLOBIN 27.9 pg (29.0-33.0); MEAN CORPUSCULAR HGB CONC 32.5 g/dl (32.0-37.0); MEAN CORPUSCULAR VOLUME 85.8 fl (82.0-101.0); MEAN PLATELET VOLUME 12.1 fl (7.4-10.4); MONOCYTE # 0.6 10^3/ul (0.3-0.9); MONOCYTES % 7.3 % (0.0-11.0); NEUTROPHIL # 5.6 10^3/ul (1.6-7.5); NEUTROPHILS % 68.8 % (39.0-77.0); PLATELET COUNT 229 10^3/UL (140-415); RED BLOOD COUNT 4.87 10^6/ul (4.70-6.10); WHITE BLOOD COUNT 8.1 10^3/ul (4.8-10.8)
[2016-12-12 22:25] LABS: CHOL/HDL RATIO 3.6 RATIO
[2016-12-12 22:26] LABS: ALBUMIN 3.8 g/dl (3.3-4.9); BILIRUBIN,INDIRECT 0.4 mg/dl (0-1.1); BILIRUBIN,TOTAL 0.4 mg/dl (0.2-1.3); CALCIUM 9.5 mg/dl (8.4-10.2); CREATININE 1.04 mg/dl (0.61-1.24); POTASSIUM 3.4 mmol/L (3.5-5.1); TOTAL PROTEIN 7.6 g/dl (6.1-8.1)
[2016-12-12] MEDS ORDERED: POTASSIUM CHLORIDE (SR) 20 MEQ TAB PO STA (22:42)
[2016-12-12] MEDS ORDERED: DIAZEPAM 5 MG/ML SYG IV ONE (23:00)
[2016-12-13] VITALS (10 sets, daily range): BP systolic 85–112; BP diastolic 58–74; PULSE 83–95; RESP 15–19
--- NOTE | 2016-12-13 06:00 | CONS ---
DATE OF ADMISSION: 12/12/2016 DATE OF CONSULTATION: 12/12/2016 REASON FOR CONSULTATION: Congestive heart failure exacerbation, chest pain. REFERRING PHYSICIAN: Dr. Frazier from the hospitalist service. HISTORY OF PRESENT ILLNESS: The patient is a 56-year-old male with history of cardiomyopathy with severely depressed left ventricular ejection fraction, last approximately 20 percent by echo in September,, hypertension, diabetes mellitus, drug abuse with amphetamine, medical noncompliance, ongoing tobacco usage, who presented with complaints of shortness of breath, orthopnea, and states that it woke him with substernal chest pain described as a pressure like sensation, but exacerbated by deep inspiration. Upon arrival in the emergency department, temperature 98.6, blood pressure 120/81, pulse 109, respiratory 27, sating 98 percent. LABORATORY: Noted for white blood cell count 6.4, hemoglobin 12.3, platelet count 180. Sodium 139, potassium 4.1, creatinine 0.9, BUN 17. Troponin negative. BNP of 3340. Tox screen positive for amphetamines. The patient underwent a chest x-ray revealing enlarged similar or increased since prior, suspect chronic pulmonary venous congestion with dialysis, pulmonary edema, bibasilar lung opacities. The patient's electrocardiogram revealed sinus tach, rate 110, with borderline left axis deviation, incomplete right bundle branch block, and lateral T-wave inversions, borderline anterior progression. The patient subsequently had been admitted to the floor, and since admit to the floor, has refused blood draws and therefore has no further troponins. The patient states that he has had some chest pain with deep inspiration. PAST MEDICAL HISTORY: As above in HPI. MEDICATIONS: Currently in the hospital, carvedilol 3.125 mg p.o. b.i.d., aspirin 81 mg daily, Zestril 5 mg daily, Pepcid 20 mg q.12, Tylenol, Zofran p.r.n., Pepcid p.r.n., Ativan p.r.n. ALLERGIES: NO KNOWN DRUG ALLERGIES. SOCIAL HISTORY: Positive tobacco, positive illicit drug abuse, social EtOH. FAMILY HISTORY: No history of cardiac or early CAD. REVIEW OF SYSTEMS: As above in HPI. CONSTITUTIONAL: No fevers or chills. PULMONARY: Shortness of breath. HEART: Heart failure, chest pain. GASTROINTESTINAL: No vomiting. GENITOURINARY: No hematuria. MUSCULOSKELETAL: Degenerative joint disease. PSYCH: No documented psychiatric history. NEUROLOGIC: No documented history of . PHYSICAL EXAMINATION: VITAL SIGNS: Temperature of 98.6, blood pressure 119/78, pulse 98, respirations 18, O2 98 percent on room air. GENERAL: The patient is alert, awake, no acute distress. NECK: JVP approximately 9 cm water. CHEST: Fair air movement throughout. HEART: Regular rate and rhythm. Normal S1, S2. 1 over 6 systolic murmur. Nondisplaced PMI. ABDOMEN: Positive bowel sounds. Soft. EXTREMITIES: No pitting edema. 1 plus pulses bilaterally. LABORATORY: No further labs reviewed. IMAGING STUDIES: As stated above in HPI. No further imaging studies for review at this time. IMPRESSION: 1. Chest pain. Assess for acute coronary syndrome with somewhat atypical symptomatology for cardiac etiology with the patient with a known nonischemic cardiomyopathy by catheterization in 2014. 2. Cardiomyopathy with severely depressed left ejection fraction, 20 percent. 3. Hypertension. 4. Tachycardia borderline consistent with sinus tachycardia. 5. echocardiogram with lateral T-wave inversions. Assess for acute coronary syndrome. 6. Ongoing tobacco usage. 7. Substance abuse. RECOMMENDATIONS: 1. This time would maintain patient on telemetry monitoring to follow rhythm rates closely. 2. Will complete the patient's rule out for myocardial infarction as possible if patient will comply with lab draws. 3. Continue the patient's baseline beta gustavo and ALLIE inhibitor. Will initiate patient on low-dose Lasix to ensure good volume status in the setting of severely elevated blood pressure. 4. Orthopnea. 5. Continue patient's aspirin for prophylaxis of cardiovascular events. 6. Check a fasting lipid panel for general stratification. Initiate lipid medications as necessary. 7. Smoking cessation. 8. Cessation of substance abuse. 9. Will give patient p.r.n. sublingual nitroglycerin for recurrent chest pain. Thank you for allowing me to take part in the care of this patient. I will continue to follow closely with you with recommendations made to the patient's hospital course. Dictated By: Jonas Fenton MD /deysi/cally /Document#: [id number]
[2016-12-13] MEDS: FUROSEMIDE 40 MG INJ IV SCH ×2 (06:19→17:41)
[2016-12-13] MEDS: ASPIRIN 81 MG TAB PO SCH (09:06)
[2016-12-13] MEDS: LISINOPRIL 5 MG TAB PO SCH (09:07)
[2016-12-13] MEDS: FAMOTIDINE 20 MG TAB PO SCH ×2 (09:07→21:25)
[2016-12-13] MEDS ORDERED: DIGOXIN 0.25 MG TAB PO SCH (13:00)
--- NOTE | 2016-12-13 14:52 | PN ---
Date/Time of Note Date/Time of Note DATE: 12/13/16 TIME: 14:48 Assessment/Plan VTE Prophylaxis VTE Prophylaxis Intervention: ambulation Lines/Catheters IV [facility] (from [facility] [place] [facility] Assessment/Plan Chief Complaint/Hosp Course 1. Chest pain. To rule out acute coronary syndrome. Troponin 1 negative. Repeat troponins have been pending since the patient was refusing blood draws. Cardiology following. 2. Cardiomyopathy with ejection fraction of 20%. Continue beta-blockers and ALLIE inhibitors. 3. Essential hypertension. Continue antihypertensives. 4. Substance abuse. Cessation advised. 5. Type 2 diabetes mellitus. Hemoglobin A1c 6.5. Off insulin and oral agents. Random blood sugars well controlled. 6. Fluids, electrolytes, and nutrition. Low-cholesterol diet. 7. DVT prophylaxis. Ambulation. 8. Plan. Continue cardiology recommendations. Talked to the patient regarding the need for repeat blood draws. The patient agreed to have repeat blood draws done. Case discussed with Dr. Florez. Problems: Subjective 24 Hr Interval Summary Free Text/Dictation The patient complains of some chest pain. Refusing blood draws. Exam/Review of Systems Vital Signs Vitals Vital Signs Date Time Temp Pulse Resp B/P Pulse Ox O2 Delivery O2 Flow Rate FiO2 12/13/16 12:01 86 12/13/16 11:22 98.2 17 85/58 96 12/12/16 20:30 Room Air Intake and Output 12/12/16 12/12/16 12/13/16 15:00 23:00 07:00 Intake Total 300 ml Output Total 450 ml Balance -150 ml Exam General: Adequately build 56 year-old male lying in bed in no apparent distress. HEENT: Normocephalic, atraumatic. Eyes: Anicteric sclerae, conjunctivae clear. ENT: Nasal septum midline, oral mucosa moist. Neck supple, no JVD noticed. Respiratory: Bilaterally clear breath sounds. No use of accessory muscles of respiration. No adventitious breath sounds. Cardiovascular: S1, S2 heard. Grade 2/6 systolic ejection murmur. No murmurs or gallops. Abdomen: Soft, nontender, and nondistended. Bowel sounds positive in all 4 quadrants. Genitourinary: Deferred. Extremities: No cyanosis, no clubbing. Trace B/L edema. Peripheral pulses palpable. Neurologic: Cranial nerves II through XII grossly intact. The patient is awake, alert, and oriented. Results Result Diagram: 12/12/16210412/12/162104 Results 24 hrs Laboratory Tests Test 12/12/16 21:05 White Blood Count 8.1 # Red Blood Count 4.87 Hemoglobin 13.6 L Hematocrit 41.8 L Mean Corpuscular Volume 85.8 Mean Corpuscular Hemoglobin 27.9 L Mean Corpuscular Hemoglobin Concent 32.5 Red Cell Distribution Width 15.0 H Platelet Count 229 # Mean Platelet Volume 12.1 H Neutrophils % 68.8 Lymphocytes % 17.3 Monocytes % 7.3 Eosinophils % 5.1 Basophils % 1.0 Nucleated Red Blood Cells % 0.0 Neutrophils # 5.6 Lymphocytes # 1.4 Monocytes # 0.6 Eosinophils # 0.4 Basophils # 0.1 Nucleated Red Blood Cells # 0.0 Sodium Level 141 Potassium Level 3.4 L Chloride Level 100 Carbon Dioxide Level 34 H Anion Gap 10 Blood Urea Nitrogen 18 Creatinine 1.04 Glucose Level 109 Hemoglobin A1c 6.5 H Calcium Level 9.5 Magnesium Level 2.1 Total Bilirubin 0.4 Direct Bilirubin 0.00 Indirect Bilirubin 0.4 Aspartate Amino Transf (AST/SGOT) 25 Alanine Aminotransferase (ALT/SGPT) 26 Alkaline Phosphatase 91 Total Protein 7.6 Albumin 3.8 Globulin 3.80 H Albumin/Globulin Ratio 1.00 Triglycerides Level 56 Cholesterol Level 116 LDL Cholesterol, Calculated 73 HDL Cholesterol 32 Cholesterol/HDL Ratio 3.6 Thyroid Stimulating Hormone (TSH) 0.961 Digoxin Level 0.4 L Medications Medications Current Medications Ondansetron HCl (Zofran Inj) 4 mg Q6H PRN IV NAUSEA AND/OR VOMITING; Start at 03:30 Aspirin (Aspirin) 81 mg DAILY PO Last administered on 12/13/16 09:06; Admin Dose 81 MG; Start 12/12/16 at 09:00 Acetaminophen (Tylenol Tab) 650 mg Q6H PRN PO PAIN LEVEL 1-3 OR FEVER; Start at 03:30 Famotidine (Pepcid) 20 mg Q12 PO Last administered on 12/13/16 09:07; Admin Dose 20 MG; Start 12/12/16 at 03:30 Lisinopril (Zestril) 5 mg DAILY PO Last administered on 12/13/16 09:07; Admin Dose 5 MG; Start 12/12/16 at 09:00 Lorazepam (Ativan) 1 mg Q2 PRN IV AGITATION/ANXIETY; Start 12/12/16 at 10:30 Carvedilol (Coreg) 3.125 mg BID PO Last administered on 12/13/16 09:07; Admin Dose 3.125 MG; Start 12/12/16 at 21:00 Nitroglycerin (Nitroglycerin (Sl Tab) 0.4 Mg) 1 tab Q5M PRN SL ANGINA; Start at 18:30 Digoxin (Digoxin) 0.25 mg DAILY@13 PO Last administered on 12/13/16 12:42; Admin Dose 0.25 MG; Start 12/13/16 at 13:00 LÁZARO YAÑEZ NP Dec 13, 2016 14:52
--- NOTE | 2016-12-13 16:35 | RADRPT ---
Vent Rate: 87 bpm RR Interval: 0 msec VA Interval: 144 msec QRS Duration: 102 msec QT Interval: 414 msec QTC Interval: 498 msec P-R-T Ramey: 67 - -10 - 81 degrees Normal sinus rhythm Possible Left atrial enlargement Incomplete right bundle branch block T wave abnormality, consider lateral ischemia Prolonged QT Abnormal ECG Electronically Signed By: Geovanni Ryan [id number]
--- NOTE | 2016-12-13 17:07 | CONS ---
Date/Time of Note Date/Time of Note DATE: 12/13/16 TIME: 17:03 Assessment/Plan Assessment/Plan Chief Complaint/Hosp Course 1. Chest pain. Assess for acute coronary syndrome with somewhat atypical symptomatology for cardiac etiology with the patient with a known nonischemic cardiomyopathy by catheterization in 2014. 2. Cardiomyopathy with severely depressed left ejection fraction, 20 percent by echo 09/2016 3. Hypertension. 4. Tachycardia borderline consistent with sinus tachycardia. 5. Abnl ecg with lateral T-wave inversions. Assess for acute coronary syndrome. 6. Ongoing tobacco usage. 7. Substance abuse. Recc: -Tele -Patient refusing blood draws/trop negative x 1 -Continue BB/ACEI/lasix/Digoxin/asa -If patient reamains stable and refusing labs/work then d/c planning -cessation of smoking and substance abuse Problems: Consultation Date/Type/Reason Admit Date/Time Dec 12, 2016 at 02:32 Initial Consult Date 12/12/2016 Type of Consultation: cardiology Reason for Consultation chest pain/cardiomyopathy Referring Provider: BEVERLY TORRES Exam/Review of Systems Vital Signs Vitals Vital Signs Date Time Temp Pulse Resp B/P Pulse Ox O2 Delivery O2 Flow Rate FiO2 12/13/16 16:01 87 12/13/16 15:48 98.4 19 102/64 96 12/12/16 20:30 Room Air Intake and Output 12/12/16 12/12/16 12/13/16 15:00 23:00 07:00 Intake Total 300 ml Output Total 450 ml Balance -150 ml Exam Review of Systems: CONSTITUTIONAL: No fevers, chills. PULMONARY: No sob CARDIOVASCULAR: No current chest pain/palpitations GASTROINTESTINAL: No nausea/vomiting. GENITOURINARY: No hematuria/dysuria. MUSCULOSKELETAL: No myagias/arthalgias. PSYCHIATRIC: The patient denies depression. NEUROLOGIC: No weakness Constitutional: alert Psych: no complaints Head: normocephalic ENMT: mucosa pink and moist Neck: jvd (9 cm water), supple Respiratory: diminished breath sounds (at bases/B) Cardiovascular: regular rate and rhythm Gastrointestinal: non-tender, soft Musculoskeletal: muscle tone (normal) Extremities: edema (trace/B) Neurological: other (No focal deficits) Results Result Diagram: 12/12/16210412/12/162104 Results 24 hrs Laboratory Tests Test 12/12/16 21:05 White Blood Count 8.1 # Red Blood Count 4.87 Hemoglobin 13.6 L Hematocrit 41.8 L Mean Corpuscular Volume 85.8 Mean Corpuscular Hemoglobin 27.9 L Mean Corpuscular Hemoglobin Concent 32.5 Red Cell Distribution Width 15.0 H Platelet Count 229 # Mean Platelet Volume 12.1 H Neutrophils % 68.8 Lymphocytes % 17.3 Monocytes % 7.3 Eosinophils % 5.1 Basophils % 1.0 Nucleated Red Blood Cells % 0.0 Neutrophils # 5.6 Lymphocytes # 1.4 Monocytes # 0.6 Eosinophils # 0.4 Basophils # 0.1 Nucleated Red Blood Cells # 0.0 Sodium Level 141 Potassium Level 3.4 L Chloride Level 100 Carbon Dioxide Level 34 H Anion Gap 10 Blood Urea Nitrogen 18 Creatinine 1.04 Glucose Level 109 Hemoglobin A1c 6.5 H Calcium Level 9.5 Magnesium Level 2.1 Total Bilirubin 0.4 Direct Bilirubin 0.00 Indirect Bilirubin 0.4 Aspartate Amino Transf (AST/SGOT) 25 Alanine Aminotransferase (ALT/SGPT) 26 Alkaline Phosphatase 91 Total Protein 7.6 Albumin 3.8 Globulin 3.80 H Albumin/Globulin Ratio 1.00 Triglycerides Level 56 Cholesterol Level 116 LDL Cholesterol, Calculated 73 HDL Cholesterol 32 Cholesterol/HDL Ratio 3.6 Thyroid Stimulating Hormone (TSH) 0.961 Digoxin Level 0.4 L Medications Medications Current Medications Ondansetron HCl (Zofran Inj) 4 mg Q6H PRN IV NAUSEA AND/OR VOMITING; Start at 03:30 Aspirin (Aspirin) 81 mg DAILY PO Last administered on 12/13/16 09:06; Admin Dose 81 MG; Start 12/12/16 at 09:00 Acetaminophen (Tylenol Tab) 650 mg Q6H PRN PO PAIN LEVEL 1-3 OR FEVER; Start at 03:30 Famotidine (Pepcid) 20 mg Q12 PO Last administered on 12/13/16 09:07; Admin Dose 20 MG; Start 12/12/16 at 03:30 Lisinopril (Zestril) 5 mg DAILY PO Last administered on 12/13/16 09:07; Admin Dose 5 MG; Start 12/12/16 at 09:00 Lorazepam (Ativan) 1 mg Q2 PRN IV AGITATION/ANXIETY; Start 12/12/16 at 10:30 Carvedilol (Coreg) 3.125 mg BID PO Last administered on 12/13/16 09:07; Admin Dose 3.125 MG; Start 12/12/16 at 21:00 Nitroglycerin (Nitroglycerin (Sl Tab) 0.4 Mg) 1 tab Q5M PRN SL ANGINA; Start at 18:30 Digoxin (Digoxin) 0.25 mg DAILY@13 PO Last administered on 12/13/16 12:42; Admin Dose 0.25 MG; Start 12/13/16 at 13:00 DANIEL MICHELLE Dec 13, 2016 17:07
[2016-12-14] VITALS (11 sets, daily range): BP systolic 102–124; BP diastolic 56–81; PULSE 87–96; RESP 19–20
[2016-12-14] MEDS: FUROSEMIDE 40 MG INJ IV SCH (05:21)
[2016-12-14] MEDS: LISINOPRIL 5 MG TAB PO SCH (08:57)
[2016-12-14] MEDS: ASPIRIN 81 MG TAB PO SCH (08:57)
[2016-12-14] MEDS: FAMOTIDINE 20 MG TAB PO SCH ×2 (08:57→21:05)
[2016-12-14] MEDS ORDERED: DIGOXIN 0.125 MG TAB PO SCH (13:00)
--- NOTE | 2016-12-14 16:40 | PN ---
Date/Time of Note Date/Time of Note DATE: 12/14/16 TIME: 16:38 Assessment/Plan VTE Prophylaxis VTE Prophylaxis Intervention: ambulation Lines/Catheters IV [facility]from [facility]): Peripheral IV Urinary Cath still in place: No Assessment/Plan Chief Complaint/Hosp Course 1. Chest pain. To rule out acute coronary syndrome. Troponin 1 negative. Repeat troponins have been pending since the patient was refusing blood draws. Cardiology following. 2. Cardiomyopathy with ejection fraction of 20%. Continue beta-blockers and ALLIE inhibitors. 3. CHF exacerbation. Acute on chronic. Continue diuresis as per cardiology. 4. Essential hypertension. Continue antihypertensives. 5. Substance abuse. Cessation advised. 6. Type 2 diabetes mellitus. Hemoglobin A1c 6.5. Off insulin and oral agents. Random blood sugars well controlled. 7. Fluids, electrolytes, and nutrition. Low-cholesterol diet. 8. DVT prophylaxis. Ambulation. 9. Plan. Continue cardiology recommendations. Await further recommendations from cardiology. Case discussed with Dr. Florez. Problems: Subjective 24 Hr Interval Summary Free Text/Dictation Denies any dyspnea. Complains of some chest discomfort. Exam/Review of Systems Vital Signs Vitals Vital Signs Date Time Temp Pulse Resp B/P Pulse Ox O2 Delivery O2 Flow Rate FiO2 12/14/16 15:53 98.2 84 19 105/66 97 12/12/16 20:30 Room Air Intake and Output 12/13/16 12/13/16 12/14/16 15:00 23:00 07:00 Intake Total 240 ml 900 ml 800 ml Output Total 400 ml 800 ml 900 ml Balance -160 ml 100 ml -100 ml Exam General: Adequately build 56 year-old male lying in bed in no apparent distress. HEENT: Normocephalic, atraumatic. Eyes: Anicteric sclerae, conjunctivae clear. ENT: Nasal septum midline, oral mucosa moist. Neck supple, no JVD noticed. Respiratory: Bilaterally clear breath sounds. No use of accessory muscles of respiration. No adventitious breath sounds. Cardiovascular: S1, S2 heard. Grade 2/6 systolic ejection murmur. No murmurs or gallops. Abdomen: Soft, nontender, and nondistended. Bowel sounds positive in all 4 quadrants. Genitourinary: Deferred. Extremities: No cyanosis, no clubbing. Trace B/L edema. Peripheral pulses palpable. Neurologic: Cranial nerves II through XII grossly intact. The patient is awake, alert, and oriented. Results Result Diagram: 12/12/16210412/12/162104 Medications Medications Current Medications Ondansetron HCl (Zofran Inj) 4 mg Q6H PRN IV NAUSEA AND/OR VOMITING; Start at 03:30 Aspirin (Aspirin) 81 mg DAILY PO Last administered on 12/14/16 08:57; Admin Dose 81 MG; Start 12/12/16 at 09:00 Acetaminophen (Tylenol Tab) 650 mg Q6H PRN PO PAIN LEVEL 1-3 OR FEVER; Start at 03:30 Famotidine (Pepcid) 20 mg Q12 PO Last administered on 12/14/16 08:57; Admin Dose 20 MG; Start 12/12/16 at 03:30 Lisinopril (Zestril) 5 mg DAILY PO Last administered on 12/14/16 08:57; Admin Dose 5 MG; Start 12/12/16 at 09:00 Lorazepam (Ativan) 1 mg Q2 PRN IV AGITATION/ANXIETY; Start 12/12/16 at 10:30 Carvedilol (Coreg) 3.125 mg BID PO Last administered on 12/14/16 08:57; Admin Dose 3.125 MG; Start 12/12/16 at 21:00 Nitroglycerin (Nitroglycerin (Sl Tab) 0.4 Mg) 1 tab Q5M PRN SL ANGINA; Start at 18:30 Digoxin (Digoxin) 0.125 mg DAILY@13 PO Last administered on 12/14/16 14:05; Admin Dose 0.125 MG; Start 12/14/16 at 13:00 LÁZARO YAÑEZ NP Dec 14, 2016 16:40
--- NOTE | 2016-12-14 16:43 | PDOCDIS ---
LÁZARO YAÑEZ NP Dec 14, 2016 16:43 CHF HOME CARE INSTRUCTIONS: Special Diet: FLUID RESTRICTION FOLLOW UP/APPOINTMENTS Follow-up Plan Jonas Fenton MD Specialty Cardiology Office Address [address] [place] [id number] Office OTHER ORDERS: Other Orders: 1. Take medications as per prescription. 2. Follow a low-sodium diet. 3. Follow-up with the coupon and bond collection clerk as scheduled. 4. Abstain from using recreational drugs. 5. Resume activities as tolerated. 6. Call 911 or go to the nearest emergency room if you have any chest pain or significant shortness of breath. LÁZARO YAÑEZ NP Dec 14, 2016 16:43
[2016-12-14] MEDS ORDERED: FURO40TA4 PO (16:52)
[2016-12-14] MEDS ORDERED: ASPI81TA3 PO (16:52)
[2016-12-14] MEDS ORDERED: DIGO125T PO (16:52)
[2016-12-14] MEDS ORDERED: FUROSEMIDE 20 MG TAB GTB SCH (17:30)
--- NOTE | 2016-12-14 18:56 | PN ---
Date/Time of Note Date/Time of Note DATE: 12/14/16 TIME: 17:32 Assessment/Plan VTE Prophylaxis VTE Prophylaxis Intervention: other (None, patient was considered ambulatory and low risk.) Lines/Catheters IV Catheter Type (from [facility]): Peripheral IV Urinary Cath still in place: No Subjective 24 Hr Interval Summary Free Text/Dictation Consultation DATE OF ADMISSION: 12/12/2016 CARDIOLOGY PROGRESS NOTE REFERRING PHYSICIAN: Dr. Frazier from the hospitalist service. HISTORY OF PRESENT ILLNESS: The patient is a 56-year-old male with history of cardiomyopathy with severely depressed left ventricular ejection fraction, last approximately 20 percent by echo in September,. He suffers of hypertension, diabetes mellitus, drug abuse with amphetamine, medical noncompliance and ongoing tobacco use, Patient presented to the ED with complaints of shortness of breath, orthopnea, and states that it woke him up with substernal chest pain described as a pressure like sensation, exacerbated by deep breath. Upon arrival in the emergency department his vital signs were: temperature 98.6, blood pressure 120/81, pulse 109, regular, respiratory rate 22, SaO2 saturation 98 percent. LABORATORY: Noted for white blood cell count 6.4, hemoglobin 12.3, platelet count 180. Sodium 139, potassium 4.1, creatinine 0.9, BUN 17. Troponin negative. BNP of 3340. Toxicology screen was positive for amphetamines. Chest x-ray revealed enlarged cardiac silhouette, similar to prior study or larger. There was suspicion of chronic pulmonary venous congestion, pulmonary edema and bibasilar lung opacities. The patient's electrocardiogram revealed sinus tachycardia, rate 110, with borderline left axis deviation, incomplete right bundle branch block, and lateral T-wave inversions with borderline anterior R wave progression. The was patient subsequently admitted to the floor for observation and treatment. The first Troponin was normal. The patient refused any further blood tests due to being a "hard stick" (he claims he had a PICC line in the past for blood drawing purpose to avoid repeated, painful, abortive blood draw. The patient also complained of some chest pain with deep inspiration. PAST MEDICAL HISTORY: As above in HPI. MEDICATIONS: Currently in the hospital, carvedilol 3.125 mg p.o. b.i.d., aspirin 81 mg daily, Zestril 5 mg daily, Pepcid 20 mg q.12, Tylenol, Zofran p.r.n., Pepcid p.r.n., Ativan p.r.n. He had furosemide 40mg x 5 doses and one digoxin dose of 125 MCG. ALLERGIES: NO KNOWN DRUG ALLERGIES. SOCIAL HISTORY: Positive for tobacco, illicit drug abuse. He drinks alcohol socially. FAMILY HISTORY: No history of cardiac or early CAD. REVIEW OF SYSTEMS: At this time the patient feels better, able to ambulate, slowly in and around the room. CONSTITUTIONAL: No fevers or chills. PULMONARY: Minimal shortness of breath with exertion after diuresis. HEART: No longer chest pain. GASTROINTESTINAL: No vomiting or abdominal pain or pressure. GENITOURINARY: No hematuria. Patient has BPH and prostatism (urine retention and incontinence). MUSCULOSKELETAL: Degenerative joint disease (unspecified). PSYCH: No documented psychiatric history. NEUROLOGIC: No documented history of TIA, CVA, neurological abnormalities. PHYSICAL EXAMINATION: VITAL SIGNS: Temperature of 98.6, blood pressure 119/78, pulse 98, respirations 18, O2 98 percent on room air. GENERAL: The patient is alert, awake, no acute distress. NECK: JVP approximately 7 cm water. CHEST: Fair air movement throughout. HEART: Regular rate and rhythm. S1 soft, S2 loud and "snappy". 1 over 6 systolic and diastolic murmur. ABDOMEN: Soft, mildly obese. Positive bowel sounds. EXTREMITIES: No pitting edema. Decreased pedal pulses bilaterally. NEUROLOGIC: Intact EKG:Sinus rhythm, LA enlargement, slow R wave progression in anteroseptal leads ; Inverted T waves in anterior - anterolateral leads. LABORATORY: No further labs available. K is 3.7 (probably prior to diuresis). IMAGING STUDIES: As stated above in HPI. No further imaging studies for review at this time. IMPRESSION: 1. Chest pain. At this time patient no longer complains. 2. Dilated cardiomyopathy, non ischemic, with severely depressed left ventricular ejection fraction, about 20 percent by cardiac catheterization 2 years ago. 3. Hypertension, controlled. 4. Sinus tachycardia at admission, improved. 5. Chronic congestive heart failure (PER THE PATIENT: status post heart surgery with intracardiac defect repair, details unavailable?). 6. Chronic tobacco abuse. 7. Illicit substance abuse. PLAN: 1. Change admission status from observation to inpatient. 2. Adjust the dose of oral digoxin with slow loading. 3. Increase oral KCl to compensate for diuretic induced hypokalemia (despite lack of lab results, patient has normal renal function). 4. EKG in AM. 5. Echocardiogram in AM. COMMENT: I was called to the patient's room (presumably) in order to approve his discharge. One reason given was that patient refuses IV access. The other reason was that, post diuresis patient has improved. I decided to keep the patient with inpatient status for precaution for monitoring, another EKG and an updated echocardiogram. KCl replacement post diuresis was adjusted. Will reassess tomorrow. Chevy Landis MD Exam/Review of Systems Vital Signs Vitals Vital Signs Date Time Temp Pulse Resp B/P Pulse Ox O2 Delivery O2 Flow Rate FiO2 12/14/16 15:53 98.2 84 19 105/66 97 12/12/16 20:30 Room Air Intake and Output 12/13/16 12/13/16 12/14/16 15:00 23:00 07:00 Intake Total 240 ml 900 ml 800 ml Output Total 400 ml 800 ml 900 ml Balance -160 ml 100 ml -100 ml Results Result Diagram: 12/12/16210412/12/162104 Medications Medications Current Medications Ondansetron HCl (Zofran Inj) 4 mg Q6H PRN IV NAUSEA AND/OR VOMITING; Start at 03:30 Aspirin (Aspirin) 81 mg DAILY PO Last administered on 12/14/16 08:57; Admin Dose 81 MG; Start 12/12/16 at 09:00 Acetaminophen (Tylenol Tab) 650 mg Q6H PRN PO PAIN LEVEL 1-3 OR FEVER; Start at 03:30 Famotidine (Pepcid) 20 mg Q12 PO Last administered on 12/14/16 08:57; Admin Dose 20 MG; Start 12/12/16 at 03:30 Lisinopril (Zestril) 5 mg DAILY PO Last administered on 12/14/16 08:57; Admin Dose 5 MG; Start 12/12/16 at 09:00 Lorazepam (Ativan) 1 mg Q2 PRN IV AGITATION/ANXIETY; Start 12/12/16 at 10:30 Carvedilol (Coreg) 3.125 mg BID PO Last administered on 12/14/16 08:57; Admin Dose 3.125 MG; Start 12/12/16 at 21:00 Nitroglycerin (Nitroglycerin (Sl Tab) 0.4 Mg) 1 tab Q5M PRN SL ANGINA; Start at 18:30 Digoxin (Digoxin) 0.25 mg BID PO ; Start 12/14/16 at 21:00; Stop 12/15/16 at 21: 00; Status UNV Potassium Chloride (Klor-Con 20) 40 meq BID PO ; Start 12/14/16 at 21:00; Stop 12/15/16 at 21:00; Status UNV Furosemide (Lasix) 20 mg ONCE GTB ; Start 12/14/16 at 17:30; Status UNV Furosemide (Lasix) 40 mg DAILY GTB ; Start 12/15/16 at 09:00; Status UNV CHEVY LANDIS MD Dec 14, 2016 18:50
[2016-12-14] MEDS: POTASSIUM CHLORIDE (SR) 20 MEQ TAB PO SCH (21:05)
[2016-12-14] MEDS: DIGOXIN 0.25 MG TAB PO SCH (21:06)
[2016-12-15 01:05] VITALS: PULSE 97
[2016-12-15 04:49] VITALS: PULSE 84
[2016-12-15 08:01] VITALS: BP 117/74; RESP 19
[2016-12-15] MEDS: ASPIRIN 81 MG TAB PO SCH (08:42)
[2016-12-15] MEDS: FAMOTIDINE 20 MG TAB PO SCH (08:43)
[2016-12-15] MEDS: LISINOPRIL 5 MG TAB PO SCH (08:43)
[2016-12-15] MEDS: POTASSIUM CHLORIDE (SR) 20 MEQ TAB PO SCH (08:44)
[2016-12-15] MEDS: DIGOXIN 0.25 MG TAB PO SCH (08:44)
[2016-12-15] MEDS ORDERED: FUROSEMIDE 40 MG TAB GTB SCH (09:00)
[2016-12-15 11:49] VITALS: BP 101/65; RESP 20
--- NOTE | 2016-12-15 13:41 | PDOCDIS ---
Discharge Instructions DIAGNOSIS Discharge Diagnosis CHF CONDITION Patient Condition: Good HOME CARE INSTRUCTIONS: Special Diet: Low fat, low cholesterol ACTIVITY: Activity Restrictions: Slowly Increase Activity Rest between Activity Avoid heavy lifting Avoid Heavy Housework FOLLOW UP/APPOINTMENTS Follow-up Plan Jonas Fenton MD - in 2-3 weeks Specialty Cardiology Office Address [address] [place] [address] Office Follow up with his own PMD in 1-2 weeks GINNY GUTHRIE MD Dec 15, 2016 13:41
[2016-12-15] MEDS ORDERED: CEPH500C PO (13:44)
--- NOTE | 2016-12-16 08:39 | RADRPT ---
Vent Rate: 83 bpm RR Interval: 0 msec [place] Interval: 152 msec QRS Duration: 102 msec QT Interval: 402 msec QTC Interval: 472 msec P-R-T [place]: 79 - 81 - -82 degrees Normal sinus rhythm Possible Left atrial enlargement Incomplete right bundle branch block T wave abnormality, consider inferior ischemia Prolonged QT Abnormal ECG Electronically Signed By: Geovanni Ryan [id number]
--- NOTE | 2016-12-16 15:04 | DS ---
Date/Time of Note Date/Time of Note DATE: 12/16/16 TIME: 15:04 Discharge Summary Admission/Discharge Info Admit Date/Time Dec 14, 2016 at 18:35 Discharge Date/Time Dec 15, 2016 at 15:35 Discharge Diagnosis 1. Atypical chest pain 2. Cardiomyopathy with ejection fraction of 20%. amphetamine induced , Urine toxicology positive for amphetamine 3. CHF exacerbation. Acute on chronic., systolic 4. Essential hypertension. 5. Substance abuse. 6. Type 2 diabetes mellitus. 7. Right arm Thrombophlebitis Patient Condition: Fair Consults Cardiology Consult Dr.James Fenton Procedures None during this admission, - ON previosu admission ECHO showed EF 20% Hx of Present Illness Chief complaint: Shortness of breath and orthopnea This a 56-year-old male who is complaining of dyspnea on exertion and orthopnea progressively getting worse over the past 3 weeks. He also has progressive worsening of his lower extremity edema. He says his lower extremity edema is chronic but is getting worse as well. Patient has had similar symptoms in the past. Denies any chest pain cough fever nausea vomiting diarrhea. Patient denies any recent drug use. However urine drug screen does show positive for amphetamines. Of note patient is homeless and he reports that he is noncompliant with his medications as he is not able to afford them. Allergies: NKDA Medications: See [facility] Hospital Course pt admitted with chest pain, His previous ECHO on last admission shwoed cardiomyopathy with EF 20%. His urine toxicology was positive for amphetamine. He was seen by cardiology Dr.James Fenton and Ordered to have telemetry monitoring and serial troponins. pt was on tele floor for 2 days he was refusing blood draw, any tests and telemetry monitoring. He was kept in hopsital for 2 days. followed up by cardiology. he was discharged on 12/15/16 with instruction to retrun to ED if c/o chest pain, palpitation, SOB.he is also advised to see his PMD in 1-2 week after discharge. he had a right arm thrombophlebitis and he was given prescription for Kelfex on discharge for it. Home Meds Active Scripts Cephalexin* (Cephalexin*) 500 Mg Capsule, 500 MG PO Q6 for thrombophlebitis/ cellulitis , #28 CAP Prov:GINNY GUTHRIE MD 9/24/17 Digoxin* (Digitek*) 125 Mcg Tablet, 0.125 MG PO DAILY@13, #30 TAB Prov:LÁZRAO YAÑEZ NP 12/14/16 Furosemide* (Furosemide*) 40 Mg Tablet, 40 MG PO BID, #60 TAB Prov:LÁZARO YAÑEZ NP 12/14/16 Aspirin (Aspirin) 81 Mg Chew, 81 MG PO DAILY, #30 TAB Prov:LÁZARO YAÑEZ NP 12/14/16 Lisinopril* (Lisinopril*) 5 Mg Tablet, 5 MG PO DAILY for 90 Days, #90 TAB Prov:CHRISTINE DIEGO MD 11/01/16 Carvedilol* (Carvedilol*) 3.125 Mg Tablet, 3.125 MG PO BID for 90 Days, #90 TAB Prov:CHRISTINE DIEGO MD 11/01/16 Discontinued Scripts Clindamycin Hcl* (Clindamycin Hcl*) 300 Mg Capsule, 300 MG PO Q6 for 7 Days, # 28 CAP Prov:CHRISTINE DIEGO MD 11/01/16 Follow-up Plan Jonas Fenton MD - in 2-3 weeks Specialty Cardiology Office Address [address] [place] [address] Office Follow up with his own PMD in 1-2 weeks Primary Care Provider Not On Staff Doctor Time spent on discharge: > 30 minutes GINNY GUTHRIE MD Dec 16, 2016 15:04 GINNY GUTHRIE MD Dec 16, 2016 15:04
== END 2016-12-15 15:35 | disposition home or self-care (01) | DRG 293 ==
LOC: E/R 19:47 → MS3 12-12 02:32 → MS4 12-12 22:07 → OBSVTOIN 12-14 18:35
PROVIDERS: ADMIT Family Medicine; ATTEND Family Medicine
DX: I50.23 Acute on chronic systolic (congestive) heart failure (principal); I80.9 Phlebitis and thrombophlebitis of unspecified site; E11.9 Type 2 diabetes mellitus without complications; F19.10 Other psychoactive substance abuse, uncomplicated; I11.0 Hypertensive heart disease with heart failure; R00.0 Tachycardia, unspecified; F17.200 Nicotine dependence, unspecified, uncomplicated
CPT/HCPCS: 36415; 71010; 80053; 80061; 80162; 80306; 80307; 83036; 83735; 83880; 84443; 84484; 85025; 93005; 96374; 96375; G0378; J1940; J3360

== ENCOUNTER 2017-09-14 00:34 | Emergency (ER) | END 2017-09-14 02:47 | disposition left against medical advice (07) ==

== ENCOUNTER 2017-09-14 18:06 | Emergency (ER) | END 2017-09-14 20:48 | disposition home or self-care (01) ==

== ENCOUNTER 2017-12-15 03:13 | Emergency (ER) | END 2017-12-15 04:31 | disposition home or self-care (01) ==

== ENCOUNTER 2018-09-23 21:41 | Inpatient (IN) | payer OTHER ==
[~2018-09-23] VITALS: Ht 177.8 cm; Wt 124.6 kg
[~2018-09-23 21:41] MED LIST changes: +ASPI-831 PO; +BEN25 PO; -CLIN-73 PO; +DIGO125T PO; +FAMO-96 PO; +FURO40TA4 PO; +HYDR-3980 PO; +LEVO750T25 PO; +MAG355OR14 PO; +PRED20TA PO; +SPIR25TA PO
[2018-09-23 21:48] VITALS: Ht 177.8 cm; Wt 124.6 kg
[2018-09-24] MEDS ORDERED: FUROSEMIDE 40 MG INJ IV ONE (00:30)
[2018-09-24] MEDS ORDERED: morphine 4 MG/ML VIAL IV ONE (01:13)
[2018-09-24] MEDS ORDERED: ONDANSETRON 4 MG INJ IV ONE (01:14)
[2018-09-24] MEDS ORDERED: PIPER-TAZO 3.375 GM IV (PMX) 100 ML IVPB STA (01:41)
[2018-09-24] MEDS ORDERED: VANCOMYCIN 1 GM (PMX) 250 ML IVPB STA (01:41)
--- NOTE | 2018-09-24 01:52 | ERD ---
ER Documentation Chief Complaint Chief Complaint LOWER EXTREMITY SWELLING, SOB X'S 1 WEEK. HX OF CHF HPI 58-year-old male presents for evaluation of lower extremity swelling, he has a history of CHF, endorses shortness of breath for about the last week, he states that he has experienced a significant increase in his anasarca over this period of time. He endorses lower extremity pain, and redness and is concerned that he could have developed cellulitis again, which she has in the past. He has a prior history of methamphetamine use as well, he denies fever. He states that he has not taken his medications for a prolonged period of time. His symptoms are worsened by exertion. ROS All systems reviewed and are negative except as per history of present illness. Medications Home Meds Active Scripts Prednisone* (Prednisone*) 20 Mg Tab, 60 MG PO DAILY for 4 Days, TAB Prov:GRETEL EVANGELISTA PA-C 12/15/17 Diphenhydramine Hcl* (Benadryl*) 25 Mg Cap, 25 MG PO Q6, #30 CAP Prov:GRETEL EVANGELISTA PA-C 12/15/17 Famotidine* (Pepcid*) 20 Mg Tablet, 20 MG PO BID for 10 Days, TAB Prov:GRETEL EVANGELISTA PA-C 12/15/17 Prednisone* (Prednisone*) 20 Mg Tab, 60 MG PO DAILY for 5 Days, TAB Prov:CATHIE MOURA MD 09/14/17 Levofloxacin* (Levaquin*) 750 Mg Tablet, 750 MG PO DAILY for 5 Days, TAB Prov:CATHIE MOURA MD 09/14/17 Mag Hydrox/Al Hydrox/Simeth (Maalox Advanced Suspension) 355 Ml Oral.susp, 2 TSP PO TID for PAIN, #24 Prov:FREDI GRADY MD 08/01/17 Hydrocodone/Acetaminophen (Comfort 10-325 Tablet) 1 Each Tablet, 1 TAB PO Q6H PRN for PAIN, #20 TAB Prov:WOJCIECH TRAMMELL DO 07/24/17 Spironolactone* (Aldactone*) 25 Mg Tablet, 25 MG PO DAILY, #30 TAB Prov:NADIA TOLEDO 07/06/17 Furosemide* (Furosemide*) 40 Mg Tablet, 40 MG PO BID, #60 TAB 1 Refill Prov:NADIA TOLEDO 07/06/17 Aspirin (Aspirin) 81 Mg Chew, 81 MG PO DAILY, #60 TAB Prov:NADIA TOLEDO 07/06/17 Lisinopril* (Lisinopril*) 5 Mg Tablet, 5 MG PO DAILY for 90 Days, #60 TAB Prov:NADIA TOLEDO 07/06/17 Carvedilol* (Carvedilol*) 3.125 Mg Tablet, 3.125 MG PO BID, #60 TAB 1 Refill Prov:NADIA TOLEDO 07/06/17 Digoxin* (Digitek*) 125 Mcg Tablet, 0.125 MG PO DAILY@13, #30 TAB Prov:LÁZARO YAÑEZ DIRECT MAIL COORDINATOR 12/14/16 Allergies Allergies: Coded Allergies: No Known Allergy (Unverified , 07/18/17) PMhx/Soc History of Surgery: Yes (CABG 2005) Anesthesia Reaction: No Hx Neurological Disorder: No Hx Respiratory Disorders: No Hx Cardiac Disorders: Yes (HTN, cholesterol, CAD, CHF) Hx Psychiatric Problems: No Hx Miscellaneous Medical Probl: No Hx Alcohol Use: No Hx Substance Use: Yes (METHAMPHETAMINE - a few months ago) Hx Tobacco Use: No Smoking Status: Former smoker Physical Exam Vitals Vital Signs Date Temp Pulse Resp B/P (MAP) Pulse Ox O2 O2 Flow FiO2 Time Delivery Rate 09/24/18 107 44 147/97 96 Room Air 00:30 (114) 09/23/18 98.2 115 20 138/91 99 21:48 (107) Physical Exam Const: Patient sitting up, afebrile, well-developed Head: Atraumatic Eyes: Normal Conjunctiva ENT: Normal External Ears, Nose and Mouth. Neck: Full range of motion. No meningismus. Resp: Rales noted bilaterally, there is no expiratory wheezing Cardio: Regular rate and rhythm, no murmurs Abd: Soft, non tender, non distended. Normal bowel sounds Skin: No petechiae or rashes Back: No midline or flank tenderness Ext: There is anasarca noted, with 3+ pitting edema, lower extremities are warm to the touch, there are no palpable areas of fluctuance. Neur: Awake and alert Psych: Normal Mood and Affect Result Diagram: 09/24/18 0040 09/24/18 0040 Results 24 hrs Laboratory Tests Test 09/24/18 00:20 09/24/18 00:40 Blood Gas Specimen Source Blood venous Arterial Blood Date Drawn 09/24/2018 12:38:04 AM Arterial Blood Gas Puncture Site VENOUS LINE Mc Test N/A Venous Blood pH 7.349 Venous Blood pCO2 (Temp Corrected) 54.7 mmHG Venous Blood pO2 (Temp Corrected) 16.8 mmHG Venous Blood HCO3 29.5 mmol/L Venous Blood Oxygen Saturation 21.4 mmHG Venous Blood Base Excess 2.7 mmol/L Venous Blood Total Hemoglobin 13.1 g/dl Venous Blood Oxyhemoglobin 21.0 % Venous Blood Methemoglobin 1.5 % Carboxyhemoglobin 0.4 % Blood Gas Temperature 37.0 C Blood Gas Modality ROOM AIR FiO2 21.0 % Blood Gas Notified Whom AA Blood Gas Notified Time 09/24/2018 12:45:56 AM White Blood Count 8.5 10^3/ul Red Blood Count 4.50 10^6/ul Hemoglobin 12.2 g/dl Hematocrit 38.5 % Mean Corpuscular Volume 85.6 fl Mean Corpuscular Hemoglobin 27.1 pg Mean Corpuscular Hemoglobin Concent 31.7 g/dl Red Cell Distribution Width 14.6 % Platelet Count 172 10^3/UL Mean Platelet Volume 11.5 fl Immature Granulocytes % 0.500 % Neutrophils % 71.1 % Lymphocytes % 14.8 % Monocytes % 9.8 % Eosinophils % 2.9 % Basophils % 0.9 % Nucleated Red Blood Cells % 0.0 /100WBC Immature Granulocytes # 0.040 10^3/ul Neutrophils # 6.1 10^3/ul Lymphocytes # 1.3 10^3/ul Monocytes # 0.8 10^3/ul Eosinophils # 0.3 10^3/ul Basophils # 0.1 10^3/ul Nucleated Red Blood Cells # 0.0 10^3/ul Prothrombin Time 14.3 Sec Prothrombin Time Ratio 1.1 INR International Normalized Ratio 1.10 Activated Partial Thromboplast Time 28.5 Sec Sodium Level 141 mmol/L Potassium Level 3.3 mmol/L Chloride Level 101 mmol/L Carbon Dioxide Level 31 mmol/L Anion Gap 9 Blood Urea Nitrogen 11 mg/dl Creatinine 1.16 mg/dl Est Glomerular Filtrat Rate mL/min > 60 mL/min Glucose Level 128 mg/dl Calcium Level 8.8 mg/dl Total Bilirubin 0.7 mg/dl Direct Bilirubin 0.00 mg/dl Indirect Bilirubin 0.7 mg/dl Aspartate Amino Transf (AST/SGOT) 23 IU/L Alanine Aminotransferase (ALT/SGPT) 26 IU/L Alkaline Phosphatase 100 IU/L Troponin I 0.030 ng/ml B-Type Natriuretic Peptide 3640 PG/ML Total Protein 7.5 g/dl Albumin 3.7 g/dl Globulin 3.80 g/dl Albumin/Globulin Ratio 0.97 Current Medications Medications Dose Sig/Jsoe Start Time Status Last (Trade) Ordered Route PRN Stop Time Admin Dose Reason Admin Furosemide 40 mg ONCE ONCE 09/24/18 DC 09/24/18 (Lasix) IV 00:30 09/24/18 00:50 00:31 Morphine 4 mg ONCE ONCE 09/24/18 DC 09/24/18 Sulfate IV 01:13 09/24/18 01:21 (morphine) 01:14 Ondansetron 4 mg ONCE ONCE 09/24/18 DC 09/24/18 HCl (Zofran IV 01:14 09/24/18 01:21 Inj) 01:15 Ondansetron 4 mg ER BRIDGE 09/24/18 HCl (Zofran PRN IV 02:00 09/25/18 Inj) NAUSEA/VOMITI 01:59 NG 650 mg ER BRIDGE 09/24/18 Acetaminophen PRN PO 02:00 09/25/18 (Tylenol .MILD PAIN 01:59 Tab) 1-3 OR TEMP Vancomycin 250 ml @ ONCE STAT 09/24/18 HCl 125 mls/hr IVPB 01:41 09/24/18 03:40 Piperacillin 100 ml @ ONCE STAT 09/24/18 Sod/ 200 mls/hr IVPB 01:41 09/24/18 Tazobactam 02:10 Sod IV Flush 3 ml PER 09/24/18 UNV (NS 3 ml) PROTOCOL IV 02:00 Ondansetron 4 mg Q6H PRN 09/24/18 UNV HCl (Zofran IV 02:00 Inj) NAUSEA/VOMITI NG 1 tab Q5M PRN 09/24/18 UNV Nitroglycerin SL .CHEST 02:00 PAIN (Nitroglyceri n (Sl Tab) 0.4 Mg) 650 mg Q6H PRN 09/24/18 UNV Acetaminophen PO .PAIN 1-3 02:00 (Tylenol OR TEMP Tab) Heparin 5,000 unit Q12 SC 09/24/18 UNV Sodium 09:00 (Porcine) (Heparin (5000 Units/1ml)) Ipratropium 0.5 mg Q2H RESP 09/24/18 UNV [place] THERAPY PRN 02:00 (Atrovent NEB 0.02% SHORTNESS OF (Neb)) BREATH Aspirin 81 mg DAILY PO 09/24/18 UNV (Aspirin) 09:00 Carvedilol 3.125 mg BID PO 09/24/18 UNV (Coreg) 09:00 Digoxin 0.125 mg DAILY@13 09/24/18 UNV (Digoxin) PO 13:00 Famotidine 20 mg BID PO 09/24/18 UNV (Pepcid) 09:00 Furosemide 40 mg BID PO 09/24/18 UNV (Lasix) 09:00 1 tab Q6H PRN 09/24/18 UNV Acetaminophen PO PAIN 02:00 / Hydrocodone Bitart (Comfort (10/325)) Lisinopril 5 mg DAILY PO 09/24/18 UNV (Zestril) 09:00 25 mg DAILY PO 09/24/18 UNV Spironolacton 09:00 e (Aldactone) 0.63 mg Q2H PRN 09/24/18 UNV Levalbuterol HHN sob 02:00 (Xopenex Neb) Procedures/MDM This is a 58-year-old male who presents for evaluation of anasarca and shortness of breath. His symptoms are most consistent with acute CHF/probation, which is most likely secondary to medication noncompliance. I noted that the chest x-ray shows some evidence of volume overload, while I consider less likely, the patient does have risk factors, and given that he has had a previous soft tissue infection, antibiotics were given empirically. Patient will be admitted to telemetry. EKG: Rate/Rhythm: Normal Sinus Rhythm QRS, ST, T-waves: No changes consistent w/ acute ischemia Impression: No evidence of ischemia or arrhythmia Accepting Care Team: Current data and ongoing care discussed. Primary: [place] Consulting: None Outstanding Data: none Departure Diagnosis: Primary Impression: Congestive heart failure Heart failure type: unspecified Heart failure chronicity: unspecified Qualified Codes: I50.9 - Heart failure, unspecified Additional Impression: Cellulitis Site of cellulitis: unspecified site Qualified Codes: L03.90 - Cellulitis, unspecified Condition: Serious FREDI MILLER MD Sep 24, 2018 01:52
[2018-09-24] MEDS ORDERED: NACL 0.9% 3 ML SYG IV SCH (02:00)
[2018-09-24] MEDS ORDERED: IPRATROPIUM (NEB) 0.5 MG/2.5 ML AMP NEB PRN (02:00)
[2018-09-24] MEDS ORDERED: ONDANSETRON 4 MG INJ IV PRN (02:00)
[2018-09-24] MEDS ORDERED: NITROGLYCERIN (SL) 0.4 MG TAB SL PRN (02:00)
[2018-09-24] MEDS ORDERED: ACETAMINOPHEN 325 MG TAB PO PRN ×2 (02:00)
[2018-09-24] MEDS ORDERED: LEVALBUTEROL (NEB) 0.63 MG/3 ML AMP HHN PRN (02:00)
[2018-09-24 04:45] VITALS: BP 137/86; PULSE 109; RESP 20
[2018-09-24 04:55] VITALS: PULSE 108
[2018-09-24] MEDS: FUROSEMIDE 40 MG TAB PO SCH ×2 (06:05→17:50)
--- NOTE | 2018-09-24 06:46 | HP ---
Date/Time of Note Date/Time of Note DATE: 09/24/18 TIME: 06:43 Assessment/Plan VTE Prophylaxis Pharmacological prophylaxis: heparin Lines/Catheters IV Catheter Type (from Nrs): Saline Lock Assessment/Plan Assessment/Plan 1. Acute on chronic CHF, 2/2 systolic dysfunction -Telemetry monitoring -will diurese -2D echo and cardiology consult 2. Bilateral lower extremity cellulitis -Antibiotic 3. History of methamphetamine abuse 4. Obesity with a BMI of almost 40: Weight reduction advised 5. Polysubstance abuse including methamphetamine and smoking heroin -We will give her methadone x1 and then will have Dr. Izaguirre in charge of management Result Diagram: 09/24/18 0040 09/24/18 0040 Results 24hrs Laboratory Tests Test 09/24/18 00:20 09/24/18 00:40 09/24/18 01:52 Blood Gas Specimen Source Blood venous Arterial Blood Date Drawn 09/24/2018 12:38:04 AM Arterial Blood Gas VENOUS LINE Puncture Site Mc Test N/A Venous Blood pH 7.349 Venous Blood pCO2 54.7 H (Temp Corrected) Venous Blood pO2 16.8 L (Temp Corrected) Venous Blood HCO3 29.5 H Venous Blood Oxygen Saturation 21.4 L Venous Blood Base Excess 2.7 Venous Blood Total Hemoglobin 13.1 Venous Blood Oxyhemoglobin 21.0 Venous Blood Methemoglobin 1.5 Carboxyhemoglobin 0.4 Blood Gas Temperature 37.0 Blood Gas Modality ROOM AIR FiO2 21.0 Blood Gas Notified Whom AA Blood Gas Notified Time 09/24/2018 12:45:56 AM White Blood Count 8.5 # Red Blood Count 4.50 L Hemoglobin 12.2 L Hematocrit 38.5 L Mean Corpuscular Volume 85.6 Mean Corpuscular Hemoglobin 27.1 L Mean Corpuscular 31.7 L Hemoglobin Concent Red Cell Distribution Width 14.6 #H Platelet Count 172 # Mean Platelet Volume 11.5 H Immature Granulocytes % 0.500 H Neutrophils % 71.1 Lymphocytes % 14.8 L Monocytes % 9.8 Eosinophils % 2.9 Basophils % 0.9 Nucleated Red Blood Cells % 0.0 Immature Granulocytes # 0.040 H Neutrophils # 6.1 Lymphocytes # 1.3 Monocytes # 0.8 Eosinophils # 0.3 Basophils # 0.1 Nucleated Red Blood Cells # 0.0 Prothrombin Time 14.3 Prothrombin Time Ratio 1.1 INR International 1.10 Normalized Ratio Activated Partial Thromboplast 28.5 Time Sodium Level 141 Potassium Level 3.3 L Chloride Level 101 Carbon Dioxide Level 31 Anion Gap 9 Blood Urea Nitrogen 11 Creatinine 1.16 Est Glomerular Filtrat > 60 Rate mL/min Glucose Level 128 Calcium Level 8.8 Total Bilirubin 0.7 Direct Bilirubin 0.00 Indirect Bilirubin 0.7 Aspartate Amino 23 Transf (AST/SGOT) Alanine 26 Aminotransferase (ALT/SGPT) Alkaline Phosphatase 100 Troponin I 0.030 0.018 B-Type Natriuretic Peptide 3640 H Total Protein 7.5 Albumin 3.7 Globulin 3.80 H Albumin/Globulin Ratio 0.97 Creatine Kinase 85 Creatine Kinase Index 1.5 Creatinine Kinase MB (Mass) 1.28 Procalcitonin 0.13 H HPI/ROS Admit Date/Time Admit Date/Time Sep 24, 2018 at 01:32 Hx of Present Illness Patient is a 58-year-old male with a history of methamphetamine abuse, heroine (smokes) cardiomyopathy with severe systolic dysfunction (EF 20-25% in 2018), bilateral lower extremity cellulitis thought to be from lymphedema. Patient presented to ER complaining of shortness of breath, lower extremity swelling, as well as lower extremity redness and pain. Symptoms been going on for about a week. He said he has not been taking his medication for 9 months and has not followed up with a operations agent or PCP also for 9 months. Denied chest pain. Chest x-ray without acute findings. BNP 3600. First troponin is negative. EKG without ST elevation or depression. PMH/Family/Social Past Medical History Past Surgical Hx: other Family History Significant Family History: no pertinent family hx Social History Alcohol Use: none Smoking Status: Never smoker Drug Use: none Exam Constitutional: other (No acute distress) Head: normocephalic, atraumatic Eyes: EOMI, PERRL Respiratory: clear to auscultation, normal air movement Cardiovascular: regular rate and rhythm Gastrointestinal: soft Extremities: normal pulses Medications Current Medications Ondansetron HCl (Zofran Inj) 4 mg ER BRIDGE PRN IV NAUSEA/VOMITING; Start 09/24/18 at 02:00; Stop 09/25/18 at 01:59 Acetaminophen (Tylenol Tab) 650 mg ER BRIDGE PRN PO .MILD PAIN 1-3 OR TEMP; Start 09/24/18 at 02:00; Stop 09/25/18 at 01:59 IV Flush (NS 3 ml) 3 ml PER PROTOCOL IV ; Start 09/24/18 at 02:00 Ondansetron HCl (Zofran Inj) 4 mg Q6H PRN IV NAUSEA/VOMITING; Start 09/24/18 at 02:00 Nitroglycerin (Nitroglycerin (Sl Tab) 0.4 Mg) 1 tab Q5M PRN SL .CHEST PAIN; Start 09/24/18 at 02:00 Acetaminophen (Tylenol Tab) 650 mg Q6H PRN PO .PAIN 1-3 OR TEMP; Start 09/24/18 at 02:00 Heparin Sodium (Porcine) (Heparin (5000 Units/1ml)) 5,000 unit Q12 SC ; Start 09/24/18 at 09:00 Ipratropium [place] (Atrovent 0.02% (Neb)) 0.5 mg Q2H RESP THERAPY PRN NEB SHORTNESS OF BREATH; Start 09/24/18 at 02:00 Aspirin (Aspirin) 81 mg DAILY PO ; Start 09/24/18 at 09:00 Carvedilol (Coreg) 3.125 mg BID PO ; Start 09/24/18 at 09:00 Digoxin (Digoxin) 0.125 mg DAILY@13 PO ; Start 09/24/18 at 13:00 Famotidine (Pepcid) 20 mg BID PO ; Start 09/24/18 at 09:00 Furosemide (Lasix) 40 mg BID DIURETICS PO Last administered on 09/24/18at 06:05; Admin Dose 40 MG; Start 09/24/18 at 06:00 Acetaminophen/ Hydrocodone Bitart ([place] (10/325)) 1 tab Q6H PRN PO PAIN; Start 09/24/18 at 02:00 Lisinopril (Zestril) 5 mg DAILY PO ; Start 09/24/18 at 09:00 Spironolactone (Aldactone) 25 mg DAILY PO ; Start 09/24/18 at 09:00 Levalbuterol (Xopenex Neb) 0.63 mg Q2H PRN HHN sob; Start 09/24/18 at 02:00 Coded Allergies: No Known Allergy (Unverified , 07/18/17) Past Surgical History Past Surgical Hx: coronary bypass surgery Family History Significant Family History: no pertinent family hx Social History Smoking Status: Former smoker Exam/Review of Systems Vital Signs Vitals Vital Signs Date Temp Pulse Resp B/P (MAP) Pulse Ox O2 O2 Flow FiO2 Time Delivery Rate 09/24/18 108 04:55 09/24/18 20 148/88 100 Nasal 2.0 04:04 (108) Cannula 09/24/18 98.3 02:30 Intake and Output 09/23/18 09/23/18 09/24/18 1515:00 23:00 07:00 OutputOutput Total 1200 ml BalanceBalance -1200 ml BAILEY GAR MD Sep 24, 2018 06:46
[2018-09-24] MEDS ORDERED: METHADONE 10 MG TAB PO ONE (07:00)
[2018-09-24] MEDS ORDERED: AL HYDROX/MG HYDROX/SIMETH 30 ML CUP PO PRN ×2 (07:00)
[2018-09-24 07:25] VITALS: BP 121/77; PULSE 59; RESP 20
[2018-09-24] MEDS: FAMOTIDINE 20 MG TAB PO SCH ×2 (08:23→20:59)
[2018-09-24] MEDS: LISINOPRIL 5 MG TAB PO SCH (08:23)
[2018-09-24] MEDS: ASPIRIN 81 MG TAB PO SCH (08:23)
[2018-09-24] MEDS: SPIRONOLACTONE 25 MG TAB PO SCH (08:23)
[2018-09-24] MEDS: PANTOPRAZOLE (EC) 40 MG TAB PO SCH (08:24)
[2018-09-24] MEDS: HEPARIN 5,000 UNIT/1 ML VIAL SC SCH ×2 (09:26→21:16)
[2018-09-24 11:20] VITALS: BP 120/82; PULSE 100; RESP 20
[2018-09-24] MEDS ORDERED: POTASSIUM CHLORIDE (SR) 20 MEQ TAB PO STA (12:20)
--- NOTE | 2018-09-24 12:20 | PN ---
Date/Time of Note Date/Time of Note DATE: 09/24/18 TIME: 12:18 Assessment/Plan VTE Prophylaxis Risk score (from Nsg)>0 risk: 4 Pharmacological prophylaxis: NA/contraindicated Pharm contraindication: low risk/ambulating Lines/Catheters IV Catheter Type (from Nrsg): Saline Lock Urinary Cath still in place: No Assessment/Plan Hospital Course 1. Acute on chronic CHF, 2/2 systolic dysfunction -Telemetry monitoring -will diurese -2D echo and cardiology consult 2. Bilateral lower extremity cellulitis -Antibiotic 3. History of methamphetamine abuse 4. Obesity with a BMI of almost 40: Weight reduction advised 5. Polysubstance abuse including methamphetamine and smoking heroin -Methadone x1 and then will have Dr. Izaguirre in charge of management Prophylaxis: Ambulation Result Diagram: 09/24/18 0040 09/24/18 0040 Results 24hrs Laboratory Tests Test 09/24/18 00:20 09/24/18 00:40 09/24/18 01:52 Blood Gas Specimen Source Blood venous Arterial Blood Date Drawn 09/24/2018 12:38:04 AM Arterial Blood Gas VENOUS LINE Puncture Site Mc Test N/A Venous Blood pH 7.349 Venous Blood pCO2 54.7 H (Temp Corrected) Venous Blood pO2 16.8 L (Temp Corrected) Venous Blood HCO3 29.5 H Venous Blood Oxygen Saturation 21.4 L Venous Blood Base Excess 2.7 Venous Blood Total Hemoglobin 13.1 Venous Blood Oxyhemoglobin 21.0 Venous Blood Methemoglobin 1.5 Carboxyhemoglobin 0.4 Blood Gas Temperature 37.0 Blood Gas Modality ROOM AIR FiO2 21.0 Blood Gas Notified Whom AA Blood Gas Notified Time 09/24/2018 12:45:56 AM White Blood Count 8.5 # Red Blood Count 4.50 L Hemoglobin 12.2 L Hematocrit 38.5 L Mean Corpuscular Volume 85.6 Mean Corpuscular Hemoglobin 27.1 L Mean Corpuscular 31.7 L Hemoglobin Concent Red Cell Distribution Width 14.6 #H Platelet Count 172 # Mean Platelet Volume 11.5 H Immature Granulocytes % 0.500 H Neutrophils % 71.1 Lymphocytes % 14.8 L Monocytes % 9.8 Eosinophils % 2.9 Basophils % 0.9 Nucleated Red Blood Cells % 0.0 Immature Granulocytes # 0.040 H Neutrophils # 6.1 Lymphocytes # 1.3 Monocytes # 0.8 Eosinophils # 0.3 Basophils # 0.1 Nucleated Red Blood Cells # 0.0 Prothrombin Time 14.3 Prothrombin Time Ratio 1.1 INR International 1.10 Normalized Ratio Activated Partial Thromboplast 28.5 Time Sodium Level 141 Potassium Level 3.3 L Chloride Level 101 Carbon Dioxide Level 31 Anion Gap 9 Blood Urea Nitrogen 11 Creatinine 1.16 Est Glomerular Filtrat > 60 Rate mL/min Glucose Level 128 Calcium Level 8.8 Total Bilirubin 0.7 Direct Bilirubin 0.00 Indirect Bilirubin 0.7 Aspartate Amino 23 Transf (AST/SGOT) Alanine 26 Aminotransferase (ALT/SGPT) Alkaline Phosphatase 100 Troponin I 0.030 0.018 B-Type Natriuretic Peptide 3640 H Total Protein 7.5 Albumin 3.7 Globulin 3.80 H Albumin/Globulin Ratio 0.97 Creatine Kinase 85 Creatine Kinase Index 1.5 Creatinine Kinase MB (Mass) 1.28 Procalcitonin 0.13 H Subjective 24 Hr Interval Summary Skin: erythema Lymphatic: lymphadema Exam/Review of Systems Exam Vitals Vital Signs Date Temp Pulse Resp B/P (MAP) Pulse Ox O2 O2 Flow FiO2 Time Delivery Rate 09/24/18 98.2 100 20 120/82 95 Room Air 11:20 (95) 09/24/18 2.0 04:45 Intake and Output 09/23/18 09/23/18 09/24/18 1515:00 23:00 07:00 IntakeIntake Total 850 ml OutputOutput Total 1200 ml BalanceBalance -350 ml Constitutional: alert, oriented Respiratory: clear to auscultation Cardiovascular: regular rate and rhythm Gastrointestinal: soft; No distended Musculoskeletal: No nl extremities to inspection Results Results 24hrs Laboratory Tests Test 09/24/18 00:20 09/24/18 00:40 09/24/18 01:52 Blood Gas Specimen Source Blood venous Arterial Blood Date Drawn 09/24/2018 12:38:04 AM Arterial Blood Gas VENOUS LINE Puncture Site Mc Test N/A Venous Blood pH 7.349 Venous Blood pCO2 54.7 H (Temp Corrected) Venous Blood pO2 16.8 L (Temp Corrected) Venous Blood HCO3 29.5 H Venous Blood Oxygen Saturation 21.4 L Venous Blood Base Excess 2.7 Venous Blood Total Hemoglobin 13.1 Venous Blood Oxyhemoglobin 21.0 Venous Blood Methemoglobin 1.5 Carboxyhemoglobin 0.4 Blood Gas Temperature 37.0 Blood Gas Modality ROOM AIR FiO2 21.0 Blood Gas Notified Whom AA Blood Gas Notified Time 09/24/2018 12:45:56 AM White Blood Count 8.5 # Red Blood Count 4.50 L Hemoglobin 12.2 L Hematocrit 38.5 L Mean Corpuscular Volume 85.6 Mean Corpuscular Hemoglobin 27.1 L Mean Corpuscular 31.7 L Hemoglobin Concent Red Cell Distribution Width 14.6 #H Platelet Count 172 # Mean Platelet Volume 11.5 H Immature Granulocytes % 0.500 H Neutrophils % 71.1 Lymphocytes % 14.8 L Monocytes % 9.8 Eosinophils % 2.9 Basophils % 0.9 Nucleated Red Blood Cells % 0.0 Immature Granulocytes # 0.040 H Neutrophils # 6.1 Lymphocytes # 1.3 Monocytes # 0.8 Eosinophils # 0.3 Basophils # 0.1 Nucleated Red Blood Cells # 0.0 Prothrombin Time 14.3 Prothrombin Time Ratio 1.1 INR International 1.10 Normalized Ratio Activated Partial Thromboplast 28.5 Time Sodium Level 141 Potassium Level 3.3 L Chloride Level 101 Carbon Dioxide Level 31 Anion Gap 9 Blood Urea Nitrogen 11 Creatinine 1.16 Est Glomerular Filtrat > 60 Rate mL/min Glucose Level 128 Calcium Level 8.8 Total Bilirubin 0.7 Direct Bilirubin 0.00 Indirect Bilirubin 0.7 Aspartate Amino 23 Transf (AST/SGOT) Alanine 26 Aminotransferase (ALT/SGPT) Alkaline Phosphatase 100 Troponin I 0.030 0.018 B-Type Natriuretic Peptide 3640 H Total Protein 7.5 Albumin 3.7 Globulin 3.80 H Albumin/Globulin Ratio 0.97 Creatine Kinase 85 Creatine Kinase Index 1.5 Creatinine Kinase MB (Mass) 1.28 Procalcitonin 0.13 H Medications Medication Current Medications Ondansetron HCl (Zofran Inj) 4 mg ER BRIDGE PRN IV NAUSEA/VOMITING; Start 09/24/18 at 02:00; Stop 09/25/18 at 01:59 Acetaminophen (Tylenol Tab) 650 mg ER BRIDGE PRN PO .MILD PAIN 1-3 OR TEMP; Start 09/24/18 at 02:00; Stop 09/25/18 at 01:59 IV Flush (NS 3 ml) 3 ml PER PROTOCOL IV ; Start 09/24/18 at 02:00 Ondansetron HCl (Zofran Inj) 4 mg Q6H PRN IV NAUSEA/VOMITING; Start 09/24/18 at 02:00 Nitroglycerin (Nitroglycerin (Sl Tab) 0.4 Mg) 1 tab Q5M PRN SL .CHEST PAIN; Start 09/24/18 at 02:00 Acetaminophen (Tylenol Tab) 650 mg Q6H PRN PO .PAIN 1-3 OR TEMP; Start 09/24/18 at 02:00 Heparin Sodium (Porcine) (Heparin (5000 Units/1ml)) 5,000 unit Q12 SC Last administered on 09/24/18at 09:26; Admin Dose 5,000 UNIT; Start 09/24/18 at 09:00 Ipratropium [place] (Atrovent 0.02% (Neb)) 0.5 mg Q2H RESP THERAPY PRN NEB SHORTNESS OF BREATH; Start 09/24/18 at 02:00 Aspirin (Aspirin) 81 mg DAILY PO Last administered on 09/24/18at 08:23; Admin Dose 81 MG; Start 09/24/18 at 09:00 Carvedilol (Coreg) 3.125 mg BID PO Last administered on 09/24/18at 08:25; Admin Dose 3.125 MG; Start 09/24/18 at 09:00 Digoxin (Digoxin) 0.125 mg DAILY@13 PO ; Start 09/24/18 at 13:00 Famotidine (Pepcid) 20 mg BID PO Last administered on 09/24/18at 08:23; Admin Dose 20 MG; Start 09/24/18 at 09:00 Furosemide (Lasix) 40 mg BID DIURETICS PO Last administered on 09/24/18at 06:05; Admin Dose 40 MG; Start 09/24/18 at 06:00 Acetaminophen/ Hydrocodone Bitart ([place] (10/325)) 1 tab Q6H PRN PO PAIN; Start 09/24/18 at 02:00 Lisinopril (Zestril) 5 mg DAILY PO Last administered on 09/24/18 08:23; Admin Dose 5 MG; Start 09/24/18 at 09:00 Spironolactone (Aldactone) 25 mg DAILY PO Last administered on 09/24/18 08:23; Admin Dose 25 MG; Start 09/24/18 at 09:00 Levalbuterol (Xopenex Neb) 0.63 mg Q2H PRN HHN sob; Start 09/24/18 at 02:00 Pantoprazole (Protonix Tab) 40 mg DAILY@06 PO Last administered on 09/24/18at 08:24; Admin Dose 40 MG; Start 09/24/18 at 06:45 Al Hydrox/Mg Hydrox/Simethicone (Mag-Al Plus) 30 ml Q6H PRN PO GASTROINTESTINAL UPSET; Start 09/24/18 at 07:00 Trimethoprim/ Sulfamethoxazole (Bactrim (Ds)) 1 tab BID NGT ; Start 09/24/18 at 11:00 NADIA TOLEDO Sep 24, 2018 12:20
[2018-09-24] MEDS: TRIMETHOPRIM/SULFAMETHOX (DS) TAB NGT SCH ×2 (12:53→20:58)
[2018-09-24] MEDS: DIGOXIN 0.125 MG TAB PO SCH (12:54)
[2018-09-24 15:25] VITALS: BP 111/78; PULSE 74; RESP 20
[2018-09-24] MEDS: HYDROCODONE/APAP (10/325) TAB PO PRN (17:50)
[2018-09-24 20:00] VITALS: BP 114/66; PULSE 98; RESP 19
[2018-09-24] MEDS: ONDANSETRON 4 MG INJ IV PRN (21:10)
[2018-09-25] VITALS: BP 138/76; PULSE 97; RESP 19
[2018-09-25 04:00] VITALS: BP 106/78; PULSE 95; RESP 18
[2018-09-25] MEDS: PANTOPRAZOLE (EC) 40 MG TAB PO SCH (05:56)
[2018-09-25] MEDS: FUROSEMIDE 40 MG TAB PO SCH ×2 (05:57→18:33)
[2018-09-25] MEDS ORDERED: LORAZEPAM 2 MG INJ IV ONE (06:00)
[2018-09-25 08:04] VITALS: BP 117/86; PULSE 52; RESP 22
[2018-09-25] MEDS: SPIRONOLACTONE 25 MG TAB PO SCH (09:33)
[2018-09-25] MEDS: ASPIRIN 81 MG TAB PO SCH (09:34)
[2018-09-25] MEDS: LISINOPRIL 5 MG TAB PO SCH (09:34)
[2018-09-25] MEDS: FAMOTIDINE 20 MG TAB PO SCH ×2 (09:34→20:22)
[2018-09-25] MEDS: TRIMETHOPRIM/SULFAMETHOX (DS) TAB NGT SCH ×2 (09:34→20:20)
[2018-09-25] MEDS: HEPARIN 5,000 UNIT/1 ML VIAL SC SCH ×2 (10:14→21:15)
--- NOTE | 2018-09-25 11:20 | RADRPT ---
Echocardiogram Report Patient Name: Pee IRVIN ID: [id number] : 1960 (58y 8m)Study Date: 09/25/2018 7:07:47 AM Gender: MAccession #: [id number] Tech: Rebeka Tsang [facility] Location: [facility] Ref.Physician: BAILEY GAR Height(Cm): BSA: Weight(Kg): Quality: AdequateOrder Physician: BAILEY GAR Account #: Procedures: Echocardiographic Report: Transthoracic echocardiogram with complete 2D, M-Mode, and doppler examination. Indications: Cerebrovascular Accident. Measurements: 2D/M Mode Doppler Measurement Value Normal Range Measurement Value Normal Range LVIDd 2D 6.4 [ 4.2 - 5.8 ] cm AV Peak Bal 134.0 [ 100.0 - 170.0 ] cm/sec LVIDs 2D 6.2 [ 2.5 - 4.0 ] cm AV Peak PG 7.0 [ 2.0 - 9.0 ] mmHg LVPWd 2D 1.1 [ 0.6 - 1.0 ] cm LVOT Peak Abl 88.8 [ 70.0 - 110.0 ] cm/sec IVSd 2D 1.0 [ 0.6 - 1.0 ] cm LVOT Peak PG 3.0 [ 2.0 - 6.0 ] mmHg AoR Diam 2D 3.5 [ 2.6 - 3.4 ] cm TR Peak Bal 2.3 [ 100.0 - 280.0 ] cm/sec LA Dimen 2D 4.1 [ 3.0 - 4.0 ] cm TR Peak PG 22.0 mmHg RVSP 37.0 [ 10.0 - 36.0 ] mmHg RA Pressure 15.0 mmHg Findings: Left Ventricle: Normal left ventricular cavity size. Mild concentric left ventricular hypertrophy. Severe global left ventricular systolic dysfunction. Ejection fraction is visually estimated at 20 %. Abnormal Diastolic Function. Right Ventricle: Severe right ventricular systolic dysfunction. Mild enlargement of right ventricle. Severe right ventricular hypokinesis. Left Atrium: There is mild enlargement of left atrium. Right Atrium: There is severe enlargement of right atrium. Mitral Valve: Mitral valve leaflets appear mildly thickened. Mild mitral annular calcification. Trace mitral regurgitation. Aortic Valve: No significant aortic stenosis or insufficiency. Aortic cusps appear mildly calcified. Tricuspid Valve: Normal appearance of the tricuspid valve. The estimated Peak RVSP is 37 mmHg. There is moderate tricuspid regurgitation. Pulmonic Valve: Pulmonic valve not well visualized. There is mild pulmonic regurgitation. Pericardium: Normal pericardium with no significant pericardial effusion. Aorta: Normal aortic root. IVC: Dilated IVC without respiratory collapse consistent with elevated right atrial pressure. Conclusions: Normal left ventricular cavity size. Mild concentric left ventricular hypertrophy. Severe global left ventricular systolic dysfunction. Ejection fraction is visually estimated at 20 %. Abnormal Diastolic Function. There is mild enlargement of left atrium. Mitral valve leaflets appear mildly thickened. Mild mitral annular calcification. Trace mitral regurgitation. No significant aortic stenosis or insufficiency. Aortic cusps appear mildly calcified. Normal appearance of the tricuspid valve. The estimated Peak RVSP is 37 mmHg. There is moderate tricuspid regurgitation. Electronically Signed By: Damien Sandoval 2018-09-25 11:19:56 PDT
[2018-09-25 11:58] VITALS: BP 96/78; RESP 22
[2018-09-25] MEDS: DIGOXIN 0.125 MG TAB PO SCH (12:29)
--- NOTE | 2018-09-25 13:07 | PN ---
Date/Time of Note Date/Time of Note DATE: 09/25/18 TIME: 11:51 Assessment/Plan VTE Prophylaxis Risk score (from Ns)>0 risk: 4 SCD applied (from Ns): Yes Pharmacological prophylaxis: NA/contraindicated Pharm contraindication: low risk/ambulating Lines/Catheters IV Catheter Type (from Nrsg): Saline Lock Urinary Cath still in place: No Assessment/Plan Hospital Course 1. Acute on chronic CHF 2/2 systolic dysfunction-improving -Etiology of heart failure is likely secondary to methamphetamines -Patient is responding to diuretics, continue Lasix -Telemetry monitoring -2D echo shows an EF of 20% 2. Bilateral lower extremity cellulitis -Antibiotic 3. History of methamphetamine abuse 4. Obesity with a BMI of almost 40: Weight reduction advised 5. Polysubstance abuse including methamphetamine and smoking heroin -Methadone x1 and then will have Dr. Izaguirre in charge of management Prophylaxis: Ambulation DC planning: Anticipate DC home tomorrow Result Diagram: 09/24/18 0040 09/24/18 0040 Subjective 24 Hr Interval Summary Constitutional: no complaints Exam/Review of Systems Exam Vitals Vital Signs Date Temp Pulse Resp B/P (MAP) Pulse Ox O2 O2 Flow FiO2 Time Delivery Rate 09/25/18 97.5 52 22 117/86 96 Room Air 08:04 (96) 09/24/18 2.0 04:45 Intake and Output 09/24/18 09/24/18 09/25/18 1515:00 23:00 07:00 IntakeIntake Total 1800 ml 2000 ml BalanceBalance 1800 ml 2000 ml Constitutional: alert, oriented Respiratory: clear to auscultation Cardiovascular: regular rate and rhythm Gastrointestinal: soft; No distended Musculoskeletal: No nl extremities to inspection Medications Medication Current Medications IV Flush (NS 3 ml) 3 ml PER PROTOCOL IV ; Start 09/24/18 at 02:00 Ondansetron HCl (Zofran Inj) 4 mg Q6H PRN IV NAUSEA/VOMITING Last administered on 09/24/18at 21:10; Admin Dose 4 MG; Start 09/24/18 at 02:00 Nitroglycerin (Nitroglycerin (Sl Tab) 0.4 Mg) 1 tab Q5M PRN SL .CHEST PAIN; Start 09/24/18 at 02:00 Acetaminophen (Tylenol Tab) 650 mg Q6H PRN PO .PAIN 1-3 OR TEMP; Start 09/24/18 at 02:00 Heparin Sodium (Porcine) (Heparin (5000 Units/1ml)) 5,000 unit Q12 SC Last administered on 09/25/18 10:14; Admin Dose 5,000 UNIT; Start 09/24/18 at 09:00 Ipratropium [place] (Atrovent 0.02% (Neb)) 0.5 mg Q2H RESP THERAPY PRN NEB SHORTNESS OF BREATH; Start 09/24/18 at 02:00 Aspirin (Aspirin) 81 mg DAILY PO Last administered on 09/25/18 09:34; Admin Dose 81 MG; Start 09/24/18 at 09:00 Carvedilol (Coreg) 3.125 mg BID PO Last administered on 09/24/18 21:02; Admin Dose 3.125 MG; Start 09/24/18 at 09:00 Digoxin (Digoxin) 0.125 mg DAILY@13 PO Last administered on 09/24/18 12:54; Admin Dose 0.125 MG; Start 09/24/18 at 13:00 Famotidine (Pepcid) 20 mg BID PO Last administered on 09/25/18 09:34; Admin Dose 20 MG; Start 09/24/18 at 09:00 Furosemide (Lasix) 40 mg BID DIURETICS PO Last administered on 09/25/18 05:57; Admin Dose 40 MG; Start 09/24/18 at 06:00 Acetaminophen/ Hydrocodone Bitart ([place] (10/325)) 1 tab Q6H PRN PO PAIN Last administered on 09/24/18 17:50; Admin Dose 1 TAB; Start 09/24/18 at 02:00 Lisinopril (Zestril) 5 mg DAILY PO Last administered on 09/25/18 09:34; Admin Dose 5 MG; Start 09/24/18 at 09:00 Spironolactone (Aldactone) 25 mg DAILY PO Last administered on 09/25/18 09:33; Admin Dose 25 MG; Start 09/24/18 at 09:00 Levalbuterol (Xopenex Neb) 0.63 mg Q2H PRN HHN sob; Start 09/24/18 at 02:00 Pantoprazole (Protonix Tab) 40 mg DAILY@06 PO Last administered on 7/5/19at 05:56; Admin Dose 40 MG; Start 09/24/18 at 06:45 Al Hydrox/Mg Hydrox/Simethicone (Mag-Al Plus) 30 ml Q6H PRN PO GASTROINTESTINAL UPSET; Start 09/24/18 at 07:00 Trimethoprim/ Sulfamethoxazole (Bactrim (Ds)) 1 tab BID NGT Last administered on 09/25/18at 09:34; Admin Dose 1 TAB; Start 09/24/18 at 11:00 NADIA [place] Sep 25, 2018 12:01
[2018-09-25] MEDS: HYDROCODONE/APAP (10/325) TAB PO PRN ×2 (15:48→22:47)
[2018-09-25 15:51] VITALS: BP 118/71; PULSE 94
[2018-09-25 20:00] VITALS: BP 128/88; PULSE 90; RESP 20
[2018-09-26] VITALS: BP 124/86; PULSE 70
[2018-09-26 04:00] VITALS: BP 108/64; PULSE 83
[2018-09-26] MEDS: PANTOPRAZOLE (EC) 40 MG TAB PO SCH (06:28)
[2018-09-26] MEDS: FUROSEMIDE 40 MG TAB PO SCH ×2 (06:28→18:06)
[2018-09-26 07:21] VITALS: BP 131/90; PULSE 49; RESP 20
[2018-09-26] MEDS: HYDROCODONE/APAP (10/325) TAB PO PRN ×3 (08:51→22:32)
[2018-09-26] MEDS: ASPIRIN 81 MG TAB PO SCH (08:55)
[2018-09-26] MEDS: TRIMETHOPRIM/SULFAMETHOX (DS) TAB NGT SCH ×2 (08:55→20:45)
[2018-09-26] MEDS: SPIRONOLACTONE 25 MG TAB PO SCH (08:55)
[2018-09-26] MEDS: FAMOTIDINE 20 MG TAB PO SCH ×2 (08:55→20:45)
[2018-09-26] MEDS: LISINOPRIL 5 MG TAB PO SCH (08:59)
[2018-09-26] MEDS: HEPARIN 5,000 UNIT/1 ML VIAL SC SCH ×2 (09:04→20:54)
[2018-09-26 11:24] VITALS: BP 130/62; PULSE 83; RESP 20
[2018-09-26] MEDS: DIGOXIN 0.125 MG TAB PO SCH (13:11)
[2018-09-26 15:22] VITALS: BP 124/84; PULSE 83; RESP 20
--- NOTE | 2018-09-26 18:16 | PN ---
Date/Time of Note Date/Time of Note DATE: 09/26/18 TIME: 18:14 Assessment/Plan VTE Prophylaxis Risk score (from Ns)>0 risk: 2 SCD applied (from Ns): Yes Pharmacological prophylaxis: NA/contraindicated Pharm contraindication: low risk/ambulating Lines/Catheters IV Catheter Type (from Nrs): Peripheral IV Urinary Cath still in place: No Assessment/Plan Hospital Course 1. Acute on chronic CHF 2/2 systolic dysfunction-improving -Etiology of heart failure is likely secondary to methamphetamines -Patient is responding to diuretics, continue Lasix and will give one-time metolazone dose in the morning -Telemetry monitoring -2D echo shows an EF of 20% 2. Bilateral lower extremity cellulitis -Continue antibiotics 3. History of methamphetamine and smoking heroin -Cessation strongly advised 4. Obesity with a BMI of almost 40 -Weight reduction advised Prophylaxis: Ambulation DC planning: Anticipate DC home tomorrow Result Diagram: 09/24/18 0040 09/24/18 0040 Subjective 24 Hr Interval Summary Constitutional: no complaints Exam/Review of Systems Exam Vitals Vital Signs Date Temp Pulse Resp B/P (MAP) Pulse Ox O2 O2 Flow FiO2 Time Delivery Rate 09/26/18 98.0 83 20 124/84 97 15:22 (97) 09/26/18 Nasal 2.0 09:00 Cannula 09/26/18 21 00:19 Intake and Output 09/25/18 09/25/18 09/26/18 1515:00 23:00 07:00 IntakeIntake Total 530 ml 940 ml OutputOutput Total 2 ml 2 ml BalanceBalance 528 ml 938 ml Constitutional: alert, oriented Respiratory: clear to auscultation Cardiovascular: regular rate and rhythm Gastrointestinal: soft; No distended Musculoskeletal: No nl extremities to inspection Medications Medication Current Medications IV Flush (NS 3 ml) 3 ml PER PROTOCOL IV ; Start 09/24/18 at 02:00 Ondansetron HCl (Zofran Inj) 4 mg Q6H PRN IV NAUSEA/VOMITING Last administered on 09/24/18at 21:10; Admin Dose 4 MG; Start 09/24/18 at 02:00 Nitroglycerin (Nitroglycerin (Sl Tab) 0.4 Mg) 1 tab Q5M PRN SL .CHEST PAIN; Start 09/24/18 at 02:00 Acetaminophen (Tylenol Tab) 650 mg Q6H PRN PO .PAIN 1-3 OR TEMP; Start 09/24/18 at 02:00 Heparin Sodium (Porcine) (Heparin (5000 Units/1ml)) 5,000 unit Q12 SC Last administered on 09/26/18 09:04; Admin Dose 5,000 UNIT; Start 09/24/18 at 09:00 Ipratropium [place] (Atrovent 0.02% (Neb)) 0.5 mg Q2H RESP THERAPY PRN NEB SHORTNESS OF BREATH; Start 09/24/18 at 02:00 Aspirin (Aspirin) 81 mg DAILY PO Last administered on 09/26/18 08:55; Admin Dose 81 MG; Start 09/24/18 at 09:00 Carvedilol (Coreg) 3.125 mg BID PO Last administered on 09/26/18 08:59; Admin Dose 3.125 MG; Start 09/24/18 at 09:00 Digoxin (Digoxin) 0.125 mg DAILY@13 PO Last administered on 09/26/18 13:11; Admin Dose 0.125 MG; Start 09/24/18 at 13:00 Famotidine (Pepcid) 20 mg BID PO Last administered on 09/26/18 08:55; Admin Dos e 20 MG; Start 09/24/18 at 09:00 Furosemide (Lasix) 40 mg BID DIURETICS PO Last administered on 09/26/18 18:06; Admin Dose 40 MG; Start 09/24/18 at 06:00 Acetaminophen/ Hydrocodone Bitart ([place] (10/325)) 1 tab Q6H PRN PO PAIN Last administered on 09/26/18 15:11; Admin Dose 1 TAB; Start 09/24/18 at 02:00 Lisinopril (Zestril) 5 mg DAILY PO Last administered on 09/26/18 08:59; Admin Dose 5 MG; Start 09/24/18 at 09:00 Spironolactone (Aldactone) 25 mg DAILY PO Last administered on 09/26/18 08:55; Admin Dose 25 MG; Start 09/24/18 at 09:00 Levalbuterol (Xopenex Neb) 0.63 mg Q2H PRN HHN sob; Start 09/24/18 at 02:00 Pantoprazole (Protonix Tab) 40 mg DAILY@06 PO Last administered on 09/26/18at 06:28; Admin Dose 40 MG; Start 09/24/18 at 06:45 Al Hydrox/Mg Hydrox/Simethicone (Mag-Al Plus) 30 ml Q6H PRN PO GASTROINTESTINAL UPSET; Start 09/24/18 at 07:00 Trimethoprim/ Sulfamethoxazole (Bactrim (Ds)) 1 tab BID NGT Last administered on 09/26/18at 08:55; Admin Dose 1 TAB; Start 09/24/18 at 11:00 NADIA TOLEDO Sep 26, 2018 18:16
[2018-09-26 19:40] VITALS: BP 126/80; PULSE 83; RESP 18
[2018-09-27] VITALS: BP 131/88; PULSE 81; RESP 18
[2018-09-27 04:00] VITALS: BP 138/95; PULSE 89; RESP 18
[2018-09-27] MEDS: PANTOPRAZOLE (EC) 40 MG TAB PO SCH (06:12)
[2018-09-27] MEDS: HYDROCODONE/APAP (10/325) TAB PO PRN ×3 (06:13→17:30)
[2018-09-27] MEDS: FUROSEMIDE 40 MG TAB PO SCH (06:14)
[2018-09-27] MEDS ORDERED: METOLAZONE 5 MG TAB PO ONE (07:00)
[2018-09-27 07:41] VITALS: BP 133/77; PULSE 48; RESP 20
[2018-09-27] MEDS ORDERED: POTASSIUM CHLORIDE (SR) 20 MEQ TAB PO SCH (09:00)
[2018-09-27] MEDS: HEPARIN 5,000 UNIT/1 ML VIAL SC SCH ×2 (09:00→20:52)
[2018-09-27] MEDS: TRIMETHOPRIM/SULFAMETHOX (DS) TAB NGT SCH ×2 (10:31→20:45)
[2018-09-27] MEDS: SPIRONOLACTONE 25 MG TAB PO SCH (10:31)
[2018-09-27] MEDS: ASPIRIN 81 MG TAB PO SCH (10:34)
[2018-09-27] MEDS: LISINOPRIL 5 MG TAB PO SCH (10:35)
[2018-09-27] MEDS: FAMOTIDINE 20 MG TAB PO SCH ×2 (10:35→20:46)
[2018-09-27 11:22] VITALS: BP 128/75; PULSE 58; RESP 20
--- NOTE | 2018-09-27 12:29 | PN ---
Date/Time of Note Date/Time of Note DATE: 09/27/18 TIME: 12:27 Assessment/Plan VTE Prophylaxis Risk score (from Nsg)>0 risk: 0 Pharmacological prophylaxis: NA/contraindicated Pharm contraindication: low risk/ambulating Lines/Catheters IV Catheter Type (from Nrsg): Saline Lock Urinary Cath still in place: No Assessment/Plan Hospital Course 1. Acute on chronic CHF 2/2 systolic dysfunction-improving -Etiology of heart failure is likely secondary to methamphetamines -Patient was responding to diuretics but diuresis has decreased, patient has been a hard stick and hence midline will be placed and the patient will be started on IV Lasix -Continue metolazone -Telemetry monitoring -2D echo shows an EF of 20% 2. Bilateral lower extremity cellulitis -Continue antibiotics 3. History of methamphetamine and smoking heroin -Cessation strongly advised 4. Obesity with a BMI of almost 40 -Weight reduction advised 5. 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 Prophylaxis: Ambulation DC planning: Anticipate DC home in 1 to 2 days Result Diagram: 09/24/18 0040 09/24/18 0040 Subjective 24 Hr Interval Summary Lymphatic: lymphadema Exam/Review of Systems Exam Vitals Vital Signs Date Temp Pulse Resp B/P (MAP) Pulse Ox O2 O2 Flow FiO2 Time Delivery Rate 09/27/18 98.0 58 20 128/75 91 11:22 (92) 09/27/18 Room Air 04:00 09/26/18 2.0 21:25 09/26/18 21 00:19 Intake and Output 09/26/18 09/26/18 09/27/18 1515:00 23:00 07:00 IntakeIntake Total 1000 ml 700 ml BalanceBalance 1000 ml 700 ml Constitutional: alert, oriented Respiratory: clear to auscultation Cardiovascular: regular rate and rhythm Gastrointestinal: soft; No distended Extremities: edema Medications Medication Current Medications IV Flush (NS 3 ml) 3 ml PER PROTOCOL IV ; Start 09/24/18 at 02:00 Ondansetron HCl (Zofran Inj) 4 mg Q6H PRN IV NAUSEA/VOMITING Last administered on 09/24/18at 21:10; Admin Dose 4 MG; Start 09/24/18 at 02:00 Nitroglycerin (Nitroglycerin (Sl Tab) 0.4 Mg) 1 tab Q5M PRN SL .CHEST PAIN; Start 09/24/18 at 02:00 Acetaminophen (Tylenol Tab) 650 mg Q6H PRN PO .PAIN 1-3 OR TEMP; Start 09/24/18 at 02:00 Heparin Sodium (Porcine) (Heparin (5000 Units/1ml)) 5,000 unit Q12 SC Last administered on 09/27/18 09:00; Admin Dose 5,000 UNIT; Start 09/24/18 at 09:00 Ipratropium [place] (Atrovent 0.02% (Neb)) 0.5 mg Q2H RESP THERAPY PRN NEB SHORTNESS OF BREATH; Start 09/24/18 at 02:00 Aspirin (Aspirin) 81 mg DAILY PO Last administered on 09/27/18 10:34; Admin Dose 81 MG; Start 09/24/18 at 09:00 Carvedilol (Coreg) 3.125 mg BID PO Last administered on 09/27/18 10:34; Admin Dose 3.125 MG; Start 09/24/18 at 09:00 Digoxin (Digoxin) 0.125 mg DAILY@13 PO Last administered on 09/26/18 13:11; Admin Dose 0.125 MG; Start 09/24/18 at 13:00 Famotidine (Pepcid) 20 mg BID PO Last administered on 09/27/18 10:35; Admin Dose 20 MG; Start 09/24/18 at 09:00 Furosemide (Lasix) 40 mg BID DIURETICS PO Last administered on 09/27/18 06:14; Admin Dose 40 MG; Start 09/24/18 at 06:00 Acetaminophen/ Hydrocodone Bitart ([place] (10/325)) 1 tab Q6H PRN PO PAIN Last administered on 09/27/18 10:31; Admin Dose 1 TAB; Start 09/24/18 at 02:00 Lisinopril (Zestril) 5 mg DAILY PO Last administered on 09/27/18 10:35; Admin Dose 5 MG; Start 09/24/18 at 09:00 Spironolactone (Aldactone) 25 mg DAILY PO Last administered on 09/27/18 10:31; Admin Dose 25 MG; Start 09/24/18 at 09:00 Levalbuterol (Xopenex Neb) 0.63 mg Q2H PRN HHN sob; Start 09/24/18 at 02:00 Pantoprazole (Protonix Tab) 40 mg DAILY@06 PO Last administered on 09/27/18at 06:12; Admin Dose 40 MG; Start 09/24/18 at 06:45 Al Hydrox/Mg Hydrox/Simethicone (Mag-Al Plus) 30 ml Q6H PRN PO GASTROINTESTINAL UPSET; Start 09/24/18 at 07:00 Trimethoprim/ Sulfamethoxazole (Bactrim (Ds)) 1 tab BID NGT Last administered on 09/27/18at 10:31; Admin Dose 1 TAB; Start 09/24/18 at 11:00 Potassium Chloride (Klor-Con 20) 40 meq DAILY PO Last administered on 09/27/18at 10:32; Admin Dose 40 MEQ; Start 09/27/18 at 09:00 NADIA T[place]EDO Sep 27, 2018 12:29
[2018-09-27] MEDS: DIGOXIN 0.125 MG TAB PO SCH (13:39)
[2018-09-27 15:27] VITALS: BP 104/62; PULSE 83; RESP 20
[2018-09-27] MEDS: FUROSEMIDE 40 MG INJ IV SCH (17:21)
[2018-09-27] MEDS ORDERED: MAGNESIUM OXIDE 400 MG TAB PO ONE (19:00)
[2018-09-27] MEDS ORDERED: MAGNESIUM SULFATE 2 GM/50 ML 50 ML IVPB ONE (19:00)
[2018-09-27 20:05] VITALS: BP 126/65; PULSE 88; RESP 18
[2018-09-27] MEDS: DOCUSATE SODIUM 100 MG CAP PO SCH (20:45)
[2018-09-28] VITALS (7 sets, daily range): BP systolic 112–142; BP diastolic 69–93; PULSE 53–89; RESP 18–20
[2018-09-28] MEDS: HYDROCODONE/APAP (10/325) TAB PO PRN ×3 (03:57→17:27)
[2018-09-28] MEDS: PANTOPRAZOLE (EC) 40 MG TAB PO SCH ×2 (06:16→09:16)
[2018-09-28] MEDS: FUROSEMIDE 40 MG INJ IV SCH ×3 (06:16→17:33)
[2018-09-28] MEDS: SPIRONOLACTONE 25 MG TAB PO SCH (09:16)
[2018-09-28] MEDS: FAMOTIDINE 20 MG TAB PO SCH ×2 (09:16→21:05)
[2018-09-28] MEDS: ASPIRIN 81 MG TAB PO SCH (09:16)
[2018-09-28] MEDS: DOCUSATE SODIUM 100 MG CAP PO SCH ×2 (09:17→21:05)
[2018-09-28] MEDS: METOLAZONE 5 MG TAB PO SCH (09:17)
[2018-09-28] MEDS: TRIMETHOPRIM/SULFAMETHOX (DS) TAB NGT SCH (09:17)
[2018-09-28] MEDS: LISINOPRIL 5 MG TAB PO SCH (09:17)
[2018-09-28] MEDS: HEPARIN 5,000 UNIT/1 ML VIAL SC SCH ×2 (09:20→21:10)
[2018-09-28] MEDS: POTASSIUM CHLORIDE (SR) 20 MEQ TAB PO SCH (09:23)
[2018-09-28] MEDS: DIGOXIN 0.125 MG TAB PO SCH (13:26)
--- NOTE | 2018-09-28 15:15 | PN ---
Date/Time of Note Date/Time of Note DATE: 09/28/18 TIME: 15:10 Assessment/Plan VTE Prophylaxis Risk score (from Nsg)>0 risk: 5 SCD applied (from Nsg): Yes Pharmacological prophylaxis: heparin Lines/Catheters IV Catheter Type (from Nrsg): Saline Lock Urinary Cath still in place: No Assessment/Plan Hospital Course Comfortable, calm no distress + JVD RRR clear lungs Belly distended, tense Edema in legs No cellultiits A/P: 58 yo male with opiate and amphetaitime use d/o leading to systolic CHF presents with acute systolic CHF exacerbation 1. Acute on chronic CHF 2/2 systolic dysfunction-improving -Etiology of heart failure is likely secondary to methamphetamines - Continue IV lasix -Continue metolazone -Telemetry monitoring -2D echo shows an EF of 20% 2. Bilateral lower extremity cellulitis -s/p antibiotics 3. History of methamphetamine and smoking heroin -Cessation strongly advised 4. Obesity with a BMI of almost 40 -Weight reduction advised 5. 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 SW conslutation for homelessness Result Diagram: 09/28/18 1305 09/28/18 1305 Results 24hrs Laboratory Tests Test 09/28/18 13:05 White Blood Count 6.4 # Red Blood Count 4.64 L Hemoglobin 12.3 L Hematocrit 38.6 L Mean Corpuscular Volume 83.2 Mean Corpuscular Hemoglobin 26.5 L Mean Corpuscular Hemoglobin Concent 31.9 L Red Cell Distribution Width 14.6 H Platelet Count 165 Mean Platelet Volume 12.1 H Immature Granulocytes % 0.500 H Neutrophils % 63.9 Lymphocytes % 16.5 Monocytes % 12.0 H Eosinophils % 5.7 Basophils % 1.4 Nucleated Red Blood Cells % 0.0 Immature Granulocytes # 0.030 Neutrophils # 4.1 Lymphocytes # 1.1 Monocytes # 0.8 Eosinophils # 0.4 Basophils # 0.1 Nucleated Red Blood Cells # 0.0 Sodium Level 136 Potassium Level 4.1 Chloride Level 95 L Carbon Dioxide Level 32 H Anion Gap 9 Blood Urea Nitrogen 26 H Creatinine 1.23 Est Glomerular Filtrat Rate mL/min > 60 Glucose Level 201 Calcium Level 8.5 Phosphorus Level 2.9 Magnesium Level 2.2 Troponin I < 0.012 Subjective 24 Hr Interval Summary Free Text/Dictation Diuresing effectively Says he has been without medications for months Became very sad talking about brother Exam/Review of Systems Exam Vitals Vital Signs Date Temp Pulse Resp B/P (MAP) Pulse Ox O2 O2 Flow FiO2 Time Delivery Rate 09/28/18 98.0 77 20 131/73 98 11:22 (92) 09/28/18 Nasal 11:03 Cannula 09/28/18 2.0 08:06 09/27/18 21 19:52 Intake and Output 09/27/18 09/27/18 09/28/18 1515:00 23:00 07:00 IntakeIntake Total 950 ml 588 ml BalanceBalance 950 ml 588 ml Results Results 24hrs Laboratory Tests Test 09/28/18 13:05 White Blood Count 6.4 # Red Blood Count 4.64 L Hemoglobin 12.3 L Hematocrit 38.6 L Mean Corpuscular Volume 83.2 Mean Corpuscular Hemoglobin 26.5 L Mean Corpuscular Hemoglobin Concent 31.9 L Red Cell Distribution Width 14.6 H Platelet Count 165 Mean Platelet Volume 12.1 H Immature Granulocytes % 0.500 H Neutrophils % 63.9 Lymphocytes % 16.5 Monocytes % 12.0 H Eosinophils % 5.7 Basophils % 1.4 Nucleated Red Blood Cells % 0.0 Immature Granulocytes # 0.030 Neutrophils # 4.1 Lymphocytes # 1.1 Monocytes # 0.8 Eosinophils # 0.4 Basophils # 0.1 Nucleated Red Blood Cells # 0.0 Sodium Level 136 Potassium Level 4.1 Chloride Level 95 L Carbon Dioxide Level 32 H Anion Gap 9 Blood Urea Nitrogen 26 H Creatinine 1.23 Est Glomerular Filtrat Rate mL/min > 60 Glucose Level 201 Calcium Level 8.5 Phosphorus Level 2.9 Magnesium Level 2.2 Troponin I < 0.012 Medications Medication Current Medications IV Flush (NS 3 ml) 3 ml PER PROTOCOL IV ; Start 09/24/18 at 02:00 Ondansetron HCl (Zofran Inj) 4 mg Q6H PRN IV NAUSEA/VOMITING Last administered on 09/24/18at 21:10; Admin Dose 4 MG; Start 09/24/18 at 02:00 Nitroglycerin (Nitroglycerin (Sl Tab) 0.4 Mg) 1 tab Q5M PRN SL .CHEST PAIN; Start 09/24/18 at 02:00 Acetaminophen (Tylenol Tab) 650 mg Q6H PRN PO .PAIN 1-3 OR TEMP; Start 09/24/18 at 02:00 Heparin Sodium (Porcine) (Heparin (5000 Units/1ml)) 5,000 unit Q12 SC Last administered on 09/28/18 09:20; Admin Dose 5,000 UNIT; Start 09/24/18 at 09:00 Ipratropium [place] (Atrovent 0.02% (Neb)) 0.5 mg Q2H RESP THERAPY PRN NEB SHORTNESS OF BREATH; Start 09/24/18 at 02:00 Aspirin (Aspirin) 81 mg DAILY PO Last administered on 09/28/18 09:16; Admin Dose 81 MG; Start 09/24/18 at 09:00 Carvedilol (Coreg) 3.125 mg BID PO Last administered on 09/28/18 09:16; Admin Dose 3.125 MG; Start 09/24/18 at 09:00 Digoxin (Digoxin) 0.125 mg DAILY@13 PO Last administered on 09/28/18 13:26; Admin Dose 0.125 MG; Start 09/24/18 at 13:00 Famotidine (Pepcid) 20 mg BID PO Last administered on 09/28/18 09:16; Admin Dose 20 MG; Start 09/24/18 at 09:00 Acetaminophen/ Hydrocodone Bitart ([place] (10/325)) 1 tab Q6H PRN PO PAIN Last administered on 09/28/18 10:10; Admin Dose 1 TAB; Start 09/24/18 at 02:00 Lisinopril (Zestril) 5 mg DAILY PO Last administered on 09/28/18 09:17; Admin Dose 5 MG; Start 09/24/18 at 09:00 Spironolactone (Aldactone) 25 mg DAILY PO Last administered on 09/28/18 09:16; Admin Dose 25 MG; Start 09/24/18 at 09:00 Levalbuterol (Xopenex Neb) 0.63 mg Q2H PRN HHN sob; Start 09/24/18 at 02:00 Pantoprazole (Protonix Tab) 40 mg DAILY@06 PO Last administered on 09/28/18 09:16; Admin Dose 40 MG; Start 09/24/18 at 06:45 Al Hydrox/Mg Hydrox/Simethicone (Mag-Al Plus) 30 ml Q6H PRN PO GASTROINTESTINAL UPSET; Start 09/24/18 at 07:00 Trimethoprim/ Sulfamethoxazole (Bactrim (Ds)) 1 tab BID NGT Last administered on 09/28/18 09:17; Admin Dose 1 TAB; Start 09/24/18 at 11:00 Furosemide (Lasix) 40 mg BID DIURETICS IV Last administered on 09/28/18 09:16; Admin Dose 40 MG; Start 09/27/18 at 18:00 Metolazone (Zaroxolyn) 5 mg DAILY PO Last administered on 09/28/18 09:17; Admin Dose 5 MG; Start 09/28/18 at 09:00 Potassium Chloride (Klor-Con 20) 40 meq DAILY PO Last administered on 09/28/18 09:23; Admin Dose 40 MEQ; Start 09/28/18 at 09:00 Docusate Sodium (Colace) 100 mg BID PO Last administered on 09/28/18 09:17; Admin Dose 100 MG; Start 09/27/18 at 21:00 CHRISTINE DIEGO MD Sep 28, 2018 15:15
[2018-09-28] MEDS ORDERED: HYDROCODONE/APAP (10/325) TAB PO PRN (17:30)
[2018-09-28] MEDS: ONDANSETRON 4 MG INJ IV PRN (17:53)
[2018-09-29] VITALS (7 sets, daily range): BP systolic 119–136; BP diastolic 71–80; PULSE 54–85; RESP 19–20
[2018-09-29] MEDS: PANTOPRAZOLE (EC) 40 MG TAB PO SCH (06:21)
[2018-09-29] MEDS: FUROSEMIDE 40 MG INJ IV SCH ×2 (06:27→18:00)
[2018-09-29] MEDS: SPIRONOLACTONE 25 MG TAB PO SCH (08:16)
[2018-09-29] MEDS: POTASSIUM CHLORIDE (SR) 20 MEQ TAB PO SCH (08:16)
[2018-09-29] MEDS: FAMOTIDINE 20 MG TAB PO SCH ×2 (08:17→21:14)
[2018-09-29] MEDS: DOCUSATE SODIUM 100 MG CAP PO SCH ×2 (08:17→21:14)
[2018-09-29] MEDS: METOLAZONE 5 MG TAB PO SCH (08:17)
[2018-09-29] MEDS: LISINOPRIL 5 MG TAB PO SCH (08:17)
[2018-09-29] MEDS: ASPIRIN 81 MG TAB PO SCH (08:17)
[2018-09-29] MEDS: HEPARIN 5,000 UNIT/1 ML VIAL SC SCH ×2 (08:18→21:00)
[2018-09-29] MEDS: HYDROCODONE/APAP (10/325) TAB PO PRN ×2 (09:19→18:12)
[2018-09-29] MEDS: DIGOXIN 0.125 MG TAB PO SCH (14:06)
--- NOTE | 2018-09-29 17:07 | PN ---
Date/Time of Note Date/Time of Note DATE: 09/29/18 TIME: 17:06 Assessment/Plan VTE Prophylaxis Risk score (from Nsg)>0 risk: 5 SCD applied (from Nsg): Yes Pharmacological prophylaxis: heparin Lines/Catheters IV Catheter Type (from Nrsg): Saline Lock Urinary Cath still in place: No Assessment/Plan Hospital Course Comfortable, calm no distress + JVD RRR clear lungs Belly distended, tense Edema in legs No cellultiits A/P: 58 yo male with opiate and amphetaitime use d/o leading to systolic CHF presents with acute systolic CHF exacerbation 1. Acute on chronic CHF 2/2 systolic dysfunction-improving -Etiology of heart failure is likely secondary to methamphetamines - Continue IV lasix -Continue metolazone -Telemetry monitoring -2D echo shows an EF of 20% - Coreg, ALLIE, arslan 2. Bilateral lower extremity cellulitis -s/p antibiotics 3. History of methamphetamine and smoking heroin -Cessation strongly advised 4. Obesity with a BMI of almost 40 -Weight reduction advised 5. 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 SW conslutation for homelessness Result Diagram: 09/28/18 1305 09/28/18 1305 Subjective 24 Hr Interval Summary Free Text/Dictation Continues diuresis Feeling better Exam/Review of Systems Exam Vitals Vital Signs Date Temp Pulse Resp B/P (MAP) Pulse Ox O2 O2 Flow FiO2 Time Delivery Rate 09/29/18 98.0 82 20 133/80 95 15:18 (97) 09/29/18 Nasal 2.0 08:06 Cannula 09/27/18 21 19:52 Intake and Output 09/28/18 09/28/18 09/29/18 1515:00 23:00 07:00 IntakeIntake Total 1245 ml 120 ml OutputOutput Total 375 ml BalanceBalance 1245 ml -255 ml Medications Medication Current Medications IV Flush (NS 3 ml) 3 ml PER PROTOCOL IV ; Start 09/24/18 at 02:00 Ondansetron HCl (Zofran Inj) 4 mg Q6H PRN IV NAUSEA/VOMITING Last administered on 09/28/18at 17:53; Admin Dose 4 MG; Start 09/24/18 at 02:00 Nitroglycerin (Nitroglycerin (Sl Tab) 0.4 Mg) 1 tab Q5M PRN SL .CHEST PAIN; Start 09/24/18 at 02:00 Acetaminophen (Tylenol Tab) 650 mg Q6H PRN PO .PAIN 1-3 OR TEMP; Start 09/24/18 at 02:00 Heparin Sodium (Porcine) (Heparin (5000 Units/1ml)) 5,000 unit Q12 SC Last administered on 09/28/18 21:10; Admin Dose 5,000 UNIT; Start 09/24/18 at 09:00 Ipratropium [place] (Atrovent 0.02% (Neb)) 0.5 mg Q2H RESP THERAPY PRN NEB SHORTNESS OF BREATH; Start 09/24/18 at 02:00 Aspirin (Aspirin) 81 mg DAILY PO Last administered on 09/29/18 08:17; Admin Dose 81 MG; Start 09/24/18 at 09:00 Carvedilol (Coreg) 3.125 mg BID PO Last administered on 09/29/18 08:17; Admin Dose 3.125 MG; Start 09/24/18 at 09:00 Digoxin (Digoxin) 0.125 mg DAILY@13 PO Last administered on 09/29/18 14:06; Admin Dose 0.125 MG; Start 09/24/18 at 13:00 Famotidine (Pepcid) 20 mg BID PO Last administered on 09/29/18 08:17; Admin Dose 20 MG; Start 09/24/18 at 09:00 Lisinopril (Zestril) 5 mg DAILY PO Last administered on 09/29/18 08:17; Admin Dose 5 MG; Start 09/24/18 at 09:00 Spironolactone (Aldactone) 25 mg DAILY PO Last administered on 09/29/18 08:16; Admin Dose 25 MG; Start 09/24/18 at 09:00 Levalbuterol (Xopenex Neb) 0.63 mg Q2H PRN HHN sob; Start 09/24/18 at 02:00 Pantoprazole (Protonix Tab) 40 mg DAILY@06 PO Last administered on 09/29/18 06:21; Admin Dose 40 MG; Start 09/24/18 at 06:45 Al Hydrox/Mg Hydrox/Simethicone (Mag-Al Plus) 30 ml Q6H PRN PO GASTROINTESTINAL UPSET Last administered on 09/28/18 17:53; Admin Dose 30 ML; Start 09/24/18 at 07:00 Furosemide (Lasix) 40 mg BID DIURETICS IV Last administered on 09/29/18 06:27; Admin Dose 40 MG; Start 09/27/18 at 18:00 Metolazone (Zaroxolyn) 5 mg DAILY PO Last administered on 09/29/18 08:17; Admin Dose 5 MG; Start 09/28/18 at 09:00 Potassium Chloride (Klor-Con 20) 40 meq DAILY PO Last administered on 09/29/18 08:16; Admin Dose 40 MEQ; Start 09/28/18 at 09:00 Docusate Sodium (Colace) 100 mg BID PO Last administered on 09/29/18 08:17; Admin Dose 100 MG; Start 09/27/18 at 21:00 Acetaminophen/ Hydrocodone Bitart ([place] (10/325)) 1 tab Q8 PRN PO MODERATE PAIN LEVEL 4-6 Last administered on 09/29/18 09:19; Admin Dose 1 TAB; Start 09/28/18 at 17:30 CHRISTINE DIEGO MD Sep 29, 2018 17:07
[2018-09-30 04:00] VITALS: BP 135/73; PULSE 87; RESP 20
[2018-09-30] MEDS: HYDROCODONE/APAP (10/325) TAB PO PRN ×2 (05:21→15:33)
[2018-09-30] MEDS: PANTOPRAZOLE (EC) 40 MG TAB PO SCH (05:57)
[2018-09-30] MEDS: FUROSEMIDE 40 MG INJ IV SCH ×2 (05:58→18:00)
[2018-09-30 07:38] VITALS: BP 140/81; PULSE 81; RESP 16
[2018-09-30] MEDS: SPIRONOLACTONE 25 MG TAB PO SCH (08:16)
[2018-09-30] MEDS: FAMOTIDINE 20 MG TAB PO SCH ×2 (08:16→20:07)
[2018-09-30] MEDS: ASPIRIN 81 MG TAB PO SCH (08:16)
[2018-09-30] MEDS: DOCUSATE SODIUM 100 MG CAP PO SCH ×2 (08:16→20:07)
[2018-09-30] MEDS: POTASSIUM CHLORIDE (SR) 20 MEQ TAB PO SCH (08:16)
[2018-09-30] MEDS: LISINOPRIL 5 MG TAB PO SCH (08:17)
[2018-09-30] MEDS: METOLAZONE 5 MG TAB PO SCH (08:17)
[2018-09-30] MEDS: HEPARIN 5,000 UNIT/1 ML VIAL SC SCH ×2 (08:19→20:07)
[2018-09-30 11:34] VITALS: BP 137/79; PULSE 77; RESP 16
[2018-09-30] MEDS: DIGOXIN 0.125 MG TAB PO SCH (12:32)
--- NOTE | 2018-09-30 14:14 | PN ---
Date/Time of Note Date/Time of Note DATE: 09/30/18 TIME: 14:14 Assessment/Plan VTE Prophylaxis Risk score (from Nsg)>0 risk: 4 SCD applied (from Nsg): Yes Pharmacological prophylaxis: heparin Lines/Catheters IV Catheter Type (from Nrsg): Mid Line Urinary Cath still in place: No Assessment/Plan Hospital Course Comfortable, calm no distress + JVD RRR clear lungs Belly distended, tense Edema in legs No cellultiits A/P: 58 yo male with opiate and amphetaitime use d/o leading to systolic CHF presents with acute systolic CHF exacerbation 1. Acute on chronic CHF 2/2 systolic dysfunction-improving -Etiology of heart failure is likely secondary to methamphetamines - Continue IV lasix -Continue metolazone -Telemetry monitoring -2D echo shows an EF of 20% - Coreg, ALLIE, arslan 2. Bilateral lower extremity cellulitis -s/p antibiotics 3. History of methamphetamine and smoking heroin -Cessation strongly advised 4. Obesity with a BMI of almost 40 -Weight reduction advised 5. 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 SW conslutation for homelessness Result Diagram: 09/28/18 1305 09/30/18 0557 Results 24hrs Laboratory Tests Test 09/30/18 05:57 Sodium Level 138 Potassium Level 4.5 Chloride Level 95 L Carbon Dioxide Level 35 H Anion Gap 8 Blood Urea Nitrogen 20 Creatinine 1.12 Est Glomerular Filtrat Rate mL/min > 60 Glucose Level 164 Calcium Level 9.0 Magnesium Level 2.3 Subjective 24 Hr Interval Summary Free Text/Dictation Continues on diuretics Doing well Exam/Review of Systems Exam Vitals Vital Signs Date Temp Pulse Resp B/P (MAP) Pulse Ox O2 O2 Flow FiO2 Time Delivery Rate 09/30/18 98.1 77 16 137/79 96 11:34 (98) 09/29/18 Nasal 2.0 08:06 Cannula 09/27/18 21 19:52 Intake and Output 09/29/18 09/29/18 09/30/18 1515:00 23:00 07:00 IntakeIntake Total 650 ml 1270 ml 240 ml BalanceBalance 650 ml 1270 ml 240 ml Results Results 24hrs Laboratory Tests Test 09/30/18 05:57 Sodium Level 138 Potassium Level 4.5 Chloride Level 95 L Carbon Dioxide Level 35 H Anion Gap 8 Blood Urea Nitrogen 20 Creatinine 1.12 Est Glomerular Filtrat Rate mL/min > 60 Glucose Level 164 Calcium Level 9.0 Magnesium Level 2.3 Medications Medication Current Medications IV Flush (NS 3 ml) 3 ml PER PROTOCOL IV ; Start 09/24/18 at 02:00 Ondansetron HCl (Zofran Inj) 4 mg Q6H PRN IV NAUSEA/VOMITING Last administered on 09/28/18 17:53; Admin Dose 4 MG; Start 09/24/18 at 02:00 Nitroglycerin (Nitroglycerin (Sl Tab) 0.4 Mg) 1 tab Q5M PRN SL .CHEST PAIN; Start 09/24/18 at 02:00 Acetaminophen (Tylenol Tab) 650 mg Q6H PRN PO .PAIN 1-3 OR TEMP; Start 09/24/18 at 02:00 Heparin Sodium (Porcine) (Heparin (5000 Units/1ml)) 5,000 unit Q12 SC Last administered on 09/30/18 08:19; Admin Dose 5,000 UNIT; Start 09/24/18 at 09:00 Ipratropium [place] (Atrovent 0.02% (Neb)) 0.5 mg Q2H RESP THERAPY PRN NEB SHORTNESS OF BREATH; Start 09/24/18 at 02:00 Aspirin (Aspirin) 81 mg DAILY PO Last administered on 09/30/18 08:16; Admin Dose 81 MG; Start 09/24/18 at 09:00 Carvedilol (Coreg) 3.125 mg BID PO Last administered on 09/30/18 08:17; Admin Dose 3.125 MG; Start 09/24/18 at 09:00 Digoxin (Digoxin) 0.125 mg DAILY@13 PO Last administered on 09/30/18 12:32; Admin Dose 0.125 MG; Start 09/24/18 at 13:00 Famotidine (Pepcid) 20 mg BID PO Last administered on 09/30/18 08:16; Admin Dose 20 MG; Start 09/24/18 at 09:00 Lisinopril (Zestril) 5 mg DAILY PO Last administered on 09/30/18 08:17; Admin Dose 5 MG; Start 09/24/18 at 09:00 Spironolactone (Aldactone) 25 mg DAILY PO Last administered on 09/30/18 08:16; Admin Dose 25 MG; Start 09/24/18 at 09:00 Levalbuterol (Xopenex Neb) 0.63 mg Q2H PRN HHN sob; Start 09/24/18 at 02:00 Pantoprazole (Protonix Tab) 40 mg DAILY@06 PO Last administered on 09/30/18 05:57; Admin Dose 40 MG; Start 09/24/18 at 06:45 Al Hydrox/Mg Hydrox/Simethicone (Mag-Al Plus) 30 ml Q6H PRN PO GASTROINTESTINAL UPSET Last administered on 09/28/18 17:53; Admin Dose 30 ML; Start 09/24/18 at 07:00 Furosemide (Lasix) 40 mg BID DIURETICS IV Last administered on 09/30/18 05:58; Admin Dose 40 MG; Start 09/27/18 at 18:00 Metolazone (Zaroxolyn) 5 mg DAILY PO Last administered on 09/30/18 08:17; Admin Dose 5 MG; Start 09/28/18 at 09:00 Potassium Chloride (Klor-Con 20) 40 meq DAILY PO Last administered on 09/30/18 08:16; Admin Dose 40 MEQ; Start 09/28/18 at 09:00 Docusate Sodium (Colace) 100 mg BID PO Last administered on 09/30/18 08:16; Admin Dose 100 MG; Start 09/27/18 at 21:00 Acetaminophen/ Hydrocodone Bitart ([place] (10/325)) 1 tab Q8 PRN PO MODERATE PAIN LEVEL 4-6 Last administered on 09/30/18 05:21; Admin Dose 1 TAB; Start 09/28/18 at 17:30 CHRISTINE DIEGO MD Sep 30, 2018 14:14
--- NOTE | 2018-09-30 16:35 | RADRPT ---
Vent Rate: 89 bpm RR Interval: 675 msec WV Interval: 186 msec QRS Duration: 112 msec QT Interval: 401 msec QTC Interval: 488 msec P-R-T [place]: 81 - -61 - 52 degrees Sinus rhythm...normal P axis, V-rate 50- 99 Ventricular bigeminy...bigeminy string>4 w/ V complexes Incomplete RBBB and LAFB...axis(240,-40), S>R II III aVF Anteroseptal infarct, age indeterminate...Q >35mS, T neg, V1-V2 Electronically Signed By: Jonas Fenton
[2018-09-30 19:27] VITALS: BP 145/80; PULSE 93; RESP 20
[2018-09-30 23:35] VITALS: BP 147/59; PULSE 80; RESP 20
[2018-10-01] MEDS: HYDROCODONE/APAP (10/325) TAB PO PRN ×3 (00:37→16:27)
[2018-10-01 02:00] VITALS: BP 134/81; PULSE 81; RESP 20
[2018-10-01] MEDS: PANTOPRAZOLE (EC) 40 MG TAB PO SCH (05:25)
[2018-10-01] MEDS: FUROSEMIDE 40 MG INJ IV SCH ×2 (05:26→18:00)
[2018-10-01 07:29] VITALS: BP 127/74; PULSE 85; RESP 20
[2018-10-01] MEDS: POTASSIUM CHLORIDE (SR) 20 MEQ TAB PO SCH (08:33)
[2018-10-01] MEDS: FAMOTIDINE 20 MG TAB PO SCH ×2 (08:33→21:06)
[2018-10-01] MEDS: DOCUSATE SODIUM 100 MG CAP PO SCH ×2 (08:34→21:05)
[2018-10-01] MEDS: ASPIRIN 81 MG TAB PO SCH (08:34)
[2018-10-01] MEDS: SPIRONOLACTONE 25 MG TAB PO SCH (08:34)
[2018-10-01] MEDS: LISINOPRIL 5 MG TAB PO SCH (08:34)
[2018-10-01] MEDS: HEPARIN 5,000 UNIT/1 ML VIAL SC SCH ×2 (08:37→21:13)
[2018-10-01] MEDS: METOLAZONE 5 MG TAB PO SCH (10:31)
[2018-10-01 12:33] VITALS: PULSE 85
[2018-10-01] MEDS: DIGOXIN 0.125 MG TAB PO SCH (12:39)
[2018-10-01 14:02] VITALS: BP 130/79; PULSE 86; RESP 20
--- NOTE | 2018-10-01 16:33 | PN ---
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 Acute on chronic CHF 2/2 systolic dysfunction-improving -Etiology of heart failure is likely secondary to methamphetamines - Continue IV lasix -Continue metolazone -Telemetry monitoring -2D echo shows an EF of 20% - Coreg, ALLIE, arslan 2. Bilateral lower extremity cellulitis -s/p antibiotics 3. History of methamphetamine and smoking heroin -Cessation strongly advised 4. Obesity with a BMI of almost 40 -Weight reduction advised 5. 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 SW conslutation for homelessness Result Diagram: 09/28/18 1305 09/30/18 0557 Subjective 24 Hr Interval Summary Free Text/Dictation Continues diuretics Doing well Exam/Review of Systems Exam Vitals Vital Signs Date Temp Pulse Resp B/P (MAP) Pulse Ox O2 O2 Flow FiO2 Time Delivery Rate 10/01/18 98.4 86 20 130/79 96 Room Air 14:02 (96) 09/29/18 2.0 08:06 09/27/18 21 19:52 Intake and Output 09/30/18 09/30/18 10/01/18 1515:00 23:00 07:00 IntakeIntake Total 600 ml 1120 ml 120 ml BalanceBalance 600 ml 1120 ml 120 ml Medications Medication Current Medications IV Flush (NS 3 ml) 3 ml PER PROTOCOL IV ; Start 09/24/18 at 02:00 Ondansetron HCl (Zofran Inj) 4 mg Q6H PRN IV NAUSEA/VOMITING Last administered on 09/28/18at 17:53; Admin Dose 4 MG; Start 09/24/18 at 02:00 Nitroglycerin (Nitroglycerin (Sl Tab) 0.4 Mg) 1 tab Q5M PRN SL .CHEST PAIN; Start 09/24/18 at 02:00 Acetaminophen (Tylenol Tab) 650 mg Q6H PRN PO .PAIN 1-3 OR TEMP; Start 09/24/18 at 02:00 Heparin Sodium (Porcine) (Heparin (5000 Units/1ml)) 5,000 unit Q12 SC Last administered on 10/01/18 08:37; Admin Dose 5,000 UNIT; Start 09/24/18 at 09:00 Ipratropium [place] (Atrovent 0.02% (Neb)) 0.5 mg Q2H RESP THERAPY PRN NEB SHORTNESS OF BREATH; Start 09/24/18 at 02:00 Aspirin (Aspirin) 81 mg DAILY PO Last administered on 10/01/18 08:34; Admin Dose 81 MG; Start 09/24/18 at 09:00 Carvedilol (Coreg) 3.125 mg BID PO Last administered on 10/01/18 08:34; Admin Dose 3.125 MG; Start 09/24/18 at 09:00 Digoxin (Digoxin) 0.125 mg DAILY@13 PO Last administered on 10/01/18 12:39; Admin Dose 0.125 MG; Start 09/24/18 at 13:00 Famotidine (Pepcid) 20 mg BID PO Last administered on 10/01/18 08:33; Admin Dose 20 MG; Start 09/24/18 at 09:00 Lisinopril (Zestril) 5 mg DAILY PO Last administered on 10/01/18 08:34; Admin Dose 5 MG; Start 09/24/18 at 09:00 Spironolactone (Aldactone) 25 mg DAILY PO Last administered on 10/01/18 08:34; Admin Dose 25 MG; Start 09/24/18 at 09:00 Levalbuterol (Xopenex Neb) 0.63 mg Q2H PRN HHN sob; Start 09/24/18 at 02:00 Pantoprazole (Protonix Tab) 40 mg DAILY@06 PO Last administered on 10/01/18 05:25; Admin Dose 40 MG; Start 09/24/18 at 06:45 Al Hydrox/Mg Hydrox/Simethicone (Mag-Al Plus) 30 ml Q6H PRN PO GASTROINTESTINAL UPSET Last administered on 09/28/18 17:53; Admin Dose 30 ML; Start 09/24/18 at 07:00 Furosemide (Lasix) 40 mg BID DIURETICS IV Last administered on 10/01/18 05:26; Admin Dose 40 MG; Start 09/27/18 at 18:00 Metolazone (Zaroxolyn) 5 mg DAILY PO Last administered on 10/01/18 10:31; Admin Dose 5 MG; Start 09/28/18 at 09:00 Potassium Chloride (Klor-Con 20) 40 meq DAILY PO Last administered on 10/01/18 08:33; Admin Dose 40 MEQ; Start 09/28/18 at 09:00 Docusate Sodium (Colace) 100 mg BID PO Last administered on 10/01/18 08:34; Admin Dose 100 MG; Start 09/27/18 at 21:00 Acetaminophen/ Hydrocodone Bitart ([place] (10/325)) 1 tab Q8 PRN PO MODERATE PAIN LEVEL 4-6 Last administered on 10/01/18 16:27; Admin Dose 1 TAB; Start 09/28/18 at 17:30 CHRISTINE DIEGO MD Oct 01, 2018 16:33
[2018-10-01 19:44] VITALS: BP 113/79; PULSE 89; RESP 18
[2018-10-02 02:00] VITALS: BP 122/75; PULSE 85; RESP 18
[2018-10-02] MEDS: HYDROCODONE/APAP (10/325) TAB PO PRN (02:13)
[2018-10-02] MEDS: PANTOPRAZOLE (EC) 40 MG TAB PO SCH (05:18)
[2018-10-02] MEDS: FUROSEMIDE 40 MG INJ IV SCH (05:22)
[2018-10-02] MEDS: HEPARIN 5,000 UNIT/1 ML VIAL SC SCH (09:00)
[2018-10-02] MEDS: DOCUSATE SODIUM 100 MG CAP PO SCH (09:00)
[2018-10-02] MEDS: SPIRONOLACTONE 25 MG TAB PO SCH (09:21)
[2018-10-02] MEDS: FAMOTIDINE 20 MG TAB PO SCH (09:21)
[2018-10-02] MEDS: POTASSIUM CHLORIDE (SR) 20 MEQ TAB PO SCH (09:22)
[2018-10-02] MEDS: LISINOPRIL 5 MG TAB PO SCH (09:22)
[2018-10-02] MEDS: ASPIRIN 81 MG TAB PO SCH (09:23)
[2018-10-02] MEDS: METOLAZONE 5 MG TAB PO SCH (09:23)
[2018-10-02] MEDS ORDERED: SPIR25TA PO (09:29)
[2018-10-02] MEDS ORDERED: ASPI-831 PO (09:29)
[2018-10-02] MEDS ORDERED: FURO40TA4 PO (09:29)
[2018-10-02] MEDS ORDERED: CARV3.1260 PO (09:29)
[2018-10-02] MEDS ORDERED: LISI-313 PO (09:29)
[2018-10-02] MEDS ORDERED: DIGO125T PO (09:29)
--- NOTE | 2018-10-02 09:50 | PDOCDIS ---
Discharge Instructions DIAGNOSIS Discharge Diagnosis CHF CONDITION [id number] Patient Condition: [id number] Stable HOME CARE INSTRUCTIONS: [id number] Diet Instructions: [id number] Regular ACTIVITY: [id number] Activity Restrictions: [id number] No Restrictions FOLLOW UP/APPOINTMENTS Follow-up Plan Take your medications as prescribed You will need to see your doctor in the next couple weeks and have your blood work checked CHRISTINE DIEGO MD Oct 02, 2018 09:50
--- NOTE | 2018-10-02 15:56 | DS ---
Date/Time of Note Date/Time of Note DATE: 10/02/18 TIME: 15:55 Discharge Summary Admission/Discharge Info Admit Date/Time Sep 24, 2018 at 01:32 Discharge Date/Time Oct 02, 2018 at 10:10 Discharge Diagnosis CHF Patient Condition: Stable Hospital Course A/P: 58 yo male with opiate and amphetaitime use d/o leading to systolic CHF presents with acute systolic CHF exacerbation 1. Acute on chronic CHF 2/2 systolic dysfunction-improving -Etiology of heart failure was likely secondary to methamphetamines - Given IV lasix -Continued on metolazone -Telemetry monitoring -2D echo shows an EF of 20% - Coreg, ALLIE, arslan were continued - He was euvolemic at discharge and prescribed lasix, ALLIE-I, BB, spironolactone 2. Bilateral lower extremity cellulitis - was treated with IV antibiotics with resolution 3. History of methamphetamine and smoking heroin -Cessation was strongly advised 4. Obesity with a BMI of almost 40 -Weight reduction was advised Home Meds Active Scripts Spironolactone* (Aldactone*) 25 Mg Tablet, 25 MG PO DAILY for 90 Days, #90 TAB 5 Refills Prov:CHRISTINE DIEGO MD 10/02/18 Furosemide* (Furosemide*) 40 Mg Tablet, 40 MG PO BID for 45 Days, #90 TAB 5 Refills Prov:CHRISTINE DIEGO MD 10/02/18 Aspirin (Aspirin) 81 Mg Chew, 81 MG PO DAILY for 90 Days, #90 TAB 5 Refills Prov:CHRISTINE DIEGO MD 10/02/18 Lisinopril* (Lisinopril*) 5 Mg Tablet, 5 MG PO DAILY for 90 Days, #90 TAB 5 Refills Prov:CHRISTINE DIEGO MD 10/02/18 Carvedilol* (Carvedilol*) 3.125 Mg Tablet, 3.125 MG PO BID for 120 Days, #60 TAB 5 Refills Prov:CHRISTINE DIEGO MD 10/02/18 Digoxin* (Digitek*) 125 Mcg Tablet, 0.125 MG PO DAILY@13 for 90 Days, #90 TAB 6 Refills Prov:CHRISTINE DIEGO MD 10/02/18 Discontinued Scripts Prednisone* (Prednisone*) 20 Mg Tab, 60 MG PO DAILY for 4 Days, TAB Prov:GRETEL EVANGELISTA PA-C 12/15/17 Diphenhydramine Hcl* (Benadryl*) 25 Mg Cap, 25 MG PO Q6, #30 CAP Prov:GRETEL EVANGELISTA PA-C 12/15/17 Famotidine* (Pepcid*) 20 Mg Tablet, 20 MG PO BID for 10 Days, TAB Prov:GRETEL EVANGELISTA PA-C 12/15/17 Prednisone* (Prednisone*) 20 Mg Tab, 60 MG PO DAILY for 5 Days, TAB Prov:CATHIE MOURA MD 09/14/17 Levofloxacin* (Levaquin*) 750 Mg Tablet, 750 MG PO DAILY for 5 Days, TAB Prov:CATHIE MOURA MD 09/14/17 Mag Hydrox/Al Hydrox/Simeth (Maalox Advanced Suspension) 355 Ml Oral.susp, 2 TSP PO TID for PAIN, #24 Prov:FREDI GRADY MD 08/01/17 Hydrocodone/Acetaminophen ([place] 10-325 Tablet) 1 Each Tablet, 1 TAB PO Q6H PRN for PAIN, #20 TAB Prov:WOJCIECH TRAMMELL DO 07/24/17 Follow-up Plan Take your medications as prescribed You will need to see your doctor in the next couple weeks and have your blood work checked Primary Care Provider Not On Staff Doctor CHRISTINE DIEGO MD Oct 02, 2018 15:56
== END 2018-10-02 10:10 | disposition home or self-care (01) | DRG 292 ==
LOC: E/R 21:41 → 6WM 09-24 01:32 → 5EC 09-30 23:05
PROVIDERS: ADMIT Internal Medicine; ATTEND Internal Medicine
DX: I11.0 Hypertensive heart disease with heart failure (principal); L03.116 Cellulitis of left lower limb; L03.115 Cellulitis of right lower limb; I42.9 Cardiomyopathy, unspecified; I50.23 Acute on chronic systolic (congestive) heart failure; F15.10 Other stimulant abuse, uncomplicated; E66.9 Obesity, unspecified; Z68.39 Body mass index [BMI] 39.0-39.9, adult; I25.10 Atherosclerotic heart disease of native coronary artery without angina pectoris; E78.5 Hyperlipidemia, unspecified; E87.70 Fluid overload, unspecified; F11.10 Opioid abuse, uncomplicated; Z59.0 Homelessness
CPT/HCPCS: 36415; 71045; 80048; 80053; 82550; 82553; 82803; 83735; 83880; 84100; 84145; 84484; 85025; 85610; 85730; 93005; 93306; 96374; 96375; J1644; J1940; J2060; J2270; J2405; J2543; J3370; J3475